=== PATIENT | female | born 1945 | race Caucasian/White ===

== ENCOUNTER → 2018-03-07 13:51 | Outpatient (CLI) | payer MEDICARE, SELFPAY ==
--- NOTE | 2018-03-07 13:58 | VDLE_ITS ---
Reason For Study: RLE pain RIGHT GSV is normal. CFV is compressible, spontaneous, phasic, competent and demonstrates normal augmentation. FV is compressible, spontaneous, phasic, competent and demonstrates normal augmentation. POP V is compressible, spontaneous, phasic, competent and demonstrates normal augmentation. T/P Trunk is compressible. PTV is compressible. RT PerV is compressible. Procedure Exam performed in department. The study was technically difficult. Below knee was technically difficult due to thickened skin from skin grafts. A preliminary report was called and/or faxed to @ 2:30 pm. Interpretation Summary 1. right leg n DVT or SVT. Ordering Physician: Antonio Lilly Referring Physician: Castro Mariscal Performed By: Sofia Spear, JENI, RVT
--- OUTSIDE RECORDS SUMMARY | 2018-05-12 03:40 | XMS RPT_ITS ---
:1945 Author Organization OHIP Support Name Relationship Address Phone R Unavailable Unavailable Unavailable JULIANNE, LEXA Unavailable [address] + [place] [address] JULIANNE, LEXA Unavailable [address] + [place] [address] JULIANNE, LEXA Unavailable [address] + [place] [address] JULIANNE, LEXA Unavailable [address] + [place] [address] JULIANNE, LEXA Unavailable [address] + [place] [address] NOT GIVEN Unavailable Unavailable Unavailable JULIANNE, TRAE Unavailable [address] [facility] [facility] + [place] [address] JULIANNE, JULIAN Unavailable [address] [place] [address] JULIANNE, LEXA Unavailable [address] + [place] [address] JULIANNE, LEXA Unavailable [address] + [place] [address] JULIANNE, LEXA Unavailable [address] + [place] [address] JULIANNE, LEXA Unavailable [address] + [place] [address] JULIANNE, LEXA Unavailable [address] + [place] [address] NOT GIVEN Unavailable Unavailable Unavailable JULIANNE, TRAE Unavailable [address] + [place] [address] JULIANNE, JULIAN Unavailable [address] [place] [address] Care Team Providers Name Role Phone Antonio Lilly Attending Unavailable Antonio Lilly Referring Unavailable Bills, Raleigh Primary Care Unavailable BOUCHRA, BEATRISMAN Referring Unavailable BOUCHRA, KASH Attending Unavailable ORIANA SAINI Referring Unavailable BOUCHRA, KASH Referring Unavailable BOUCHRA, KASH Attending Unavailable BOUCHRA, LAPMAN Referring Unavailable BOUCHRA, LAPMAN Referring Unavailable BOUCHRA, LAPMAN Referring Unavailable BOUCHRA, LAPFRANCIS Attending Unavailable BOUCHRA, LAPMAN Referring Unavailable BOUCHRA, LAPMAN Referring Unavailable SANDRA CASEY Referring Unavailable ORIANA SAINI MD Admitting Unavailable ORIANA SAINI MD Attending Unavailable ORIANA SAINI MD Primary Care Unavailable BILLS, RALEIGH A Consulting Unavailable PROVIDER, UNKNOWN Consulting Unavailable PROVIDER, UNKNOWN Consulting Unavailable PROVIDER, UNKNOWN Consulting Unavailable SARMAD REDDY MD Admitting Unavailable SARMAD REDDY MD Attending Unavailable SARMAD REDDY MD Primary Care Unavailable BILLS, RALEIGH A Consulting Unavailable PROVIDER, UNKNOWN Consulting Unavailable PROVIDER, UNKNOWN Consulting Unavailable PROVIDER, UNKNOWN Consulting Unavailable MAUREEN NARANJO, RYAN Watts Attending Unavailable MAUREEN NARANJO, RYAN Watts Attending Unavailable RYAN REDDY MD Admitting Unavailable KAREN PRAJAPATI MD Consulting Unavailable LALI LUA MD Consulting Unavailable GEETHA OLGUIN MD Consulting Unavailable BAYRON ORELLANA MD Consulting Unavailable RYAN REDDY MD Consulting Unavailable BAYRON ORELLANA MD Attending Unavailable JORGE L WHITE MD Consulting Unavailable ILSA SILVA DO Consulting Unavailable BAYRON ORELLANA MD Attending Unavailable RYAN HUMPHREY MD Consulting Unavailable BAYRON ORELLANA MD Attending Unavailable BAYRON ORELLANA MD Referring Unavailable BAYRON ORELLANA MD Attending Unavailable DAMASO ROSALES Admitting Unavailable HEIDE PRAJAPATI Attending Unavailable SERJIO KARLO H Consulting Unavailable BILLS, RALEIGH A Primary Care Unavailable MALLAT, ALI F Admitting Unavailable DINICOLA, PRANAV Consulting Unavailable MUAKKASSA, FARID F Attending Unavailable CERVINO, A L Consulting Unavailable ANASTASIA, PRANAV Consulting Unavailable LEUKHARDT, KARLO H Consulting Unavailable PROBLEMS PROBLEMS DATE TYPE CONDITION / CODE ATTENDING STATUS SOURCE 01/15/2018 Admitting Encounter for other REYNA NARANJO, Active [facility] Diagnosis general examination BAYRON Dailey / Z00.8(ICD-10) Repository 01/02/2018 Admitting Anemia, unspecified SARMAD REDDY Active [facility] Diagnosis / D649(ICD-10) [facility] Repository 01/02/2018 Principle Anemia, unspecified SARMAD REDDY Active David[facility]itt[facility] Verdu[facility]codavis Diagnosis / D649(ICD-10) [facility] Repository 01/02/2018 Secondary Type 2 diabetes SARMAD REDDY Active [facility] Diagnosis mellitus with [facility] hyperglycemia / Hospital E1165(ICD-10) Repository 11/08/2017 Active Morbid (severe) MUAKKASSA, Active [facility] obesity due to [facility] Other excess calories / [place] E66.01(ICD-10) Repository 11/08/2017 Active Other injury of MUAKKASSA, Active [facility] unspecified body [facility] Other region, initial [place] encounter / Repository T14.8XXA(ICD-10) 11/08/2017 Active Unspecified open MUAKKASSA, Active [facility] wound, unspecified [facility] Other thigh, initial [place] encounter / Repository S71.109A(ICD-10) 11/08/2017 Active Acute MUAKKASSA, Active [facility] posthemorrhagic [facility] Other anemia / D62(ICD-10) [place] Repository 11/08/2017 Active Unspecified tear of MUAKKASSA, Active [facility] unspecified [facility] Other meniscus, current [place] injury, unspecified Repository knee, initial encounter / S83.209A(ICD-10) 11/08/2017 Active Sprain of posterior MUAKKASSA, Active [facility] cruciate ligament of [facility] Other right knee, initial [place] encounter / Repository S83.521A(ICD-10) 11/08/2017 Active Sprain of medial MUAKKASSA, Active [facility] collateral ligament [facility] Other of right knee, [place] initial encounter / Repository S83.411A(ICD-10) 11/08/2017 Active Sprain of anterior MUAKKASSA, Active [facility] cruciate ligament of [facility] Other right knee, initial [place] encounter / Repository S83.511A(ICD-10) 11/08/2017 Active Unspecified fracture MUAKKASSA, Active [facility] of unspecified [facility] Other lumbar vertebra, [place] initial encounter Repository for closed fracture / S32.009A(ICD-10) 11/08/2017 Active Injury, unspecified, MUAKKASSA, Active [facility] initial encounter / [facility] Other T14.90XA(ICD-10) [place] Repository 10/31/2017 Active Hypokalemia / MUAKKASSA, Active [facility] E87.6(ICD-10) [facility] Other [place] Repository 10/15/2017 Active Hypothyroidism, MUAKKASSA, Active [facility] unspecified / [facility] Other E03.9(ICD-10) [place] Repository 10/15/2017 Active Gangrene, not MUAKKASSA, Active [facility] elsewhere classified [facility] Other / I96(ICD-10) [place] Repository 10/15/2017 Active Pain in right knee / MUAKKASSA, Active [facility] M25.561(ICD-10) [facility] [place] Repository 10/15/2017 Active Hyperglycemia, MUAKKASSA, Active [facility] unspecified / [facility] Other R73.9(ICD-10) [place] Repository 11/08/2017 Admitting Unknown / MUAKKASSA, Active [facility] diagnosis UNK(Unknown) On license of [facility] Repository 08/07/2017 Active Abnormal results of NA Active [facility] function [facility] Main studies / [place] R94.5(ICD-10) Repository 05/09/2017 Active 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 / Clinic Main Q44.6(ICD-10) [place] Repository 05/08/2017 Active Malignant (primary) NA Active [facility] neoplasm, Clinic Main unspecified / [place] C80.1(ICD-10) Repository 05/02/2017 Active 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 / Clinic Main E04.0(ICD-10) [place] Repository 05/02/2017 Active Abnormal findings on NA Active [facility] diagnostic imaging [facility] Main of other specified [place] body structures / Repository R93.8(ICD-10) 05/02/2017 Active 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 / Repository C78.7(ICD-10) 04/26/2017 Admitting Chest pain, LATOUF, BUTROS Active [facility] Diagnosis unspecified / MD Minor R079(ICD-10) Hospital Repository 04/26/2017 Principle Chest pain, LATOUF, BUTROS Active [facility] Diagnosis unspecified / MD Minor R079(ICD-10) Hospital Repository PROCEDURES PROCEDURES No Procedure Records FoundRESULTS RESULTS VENOUS DUPLEX LOWER Observed: 03/12/2018 Status: F Source: [facility] 11:54 AM [facility] REPOSITORY [facility] Cardiovascular Services [address] [place] [address] Venous Duplex US, Unilateral 03/07/18 1402 MR#: [id number] Acct: [id number] Name: DEMETRA WHITAKER I Rep #: [id number] : 1945 72 From: Antonio Lilly MD Attending Dr: Antonio Lilly MD Status: REG CLI Ordering Dr: Antonio Lilly MD Date: 03/07/18 Location: CVS Sex: F C Admitted: Reason For Study: RLE pain RIGHT GSV is normal. CFV is compressible, spontaneous, phasic, competent and demonstrates normal augmentation. FV is compressible, spontaneous, phasic, competent and demonstrates normal augmentation. POP V is compressible, spontaneous, phasic, competent and demonstrates normal augmentation. T/P Trunk is compressible. PTV is compressible. RT PerV is compressible. Procedure Exam performed in department. The study was technically difficult. Below knee was technically difficult due to thickened skin from skin grafts. A preliminary report was called and/or faxed to @ 2:30 pm. Interpretation Summary 1. right leg n DVT or SVT. 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 CBC Collected: 02/06/2018 Status: F Source: [facility] 5:45 AM [facility] REPOSITORY TYPE CODE TESTS RESULT OUT OF RANGE REFERENCE UNITS LAB CBC(LOINC) CBC Result Comment: CBC-COMPLETE BLOOD COUNT LAB WBC(LOINC) 4.5 - 10.8 x 10EE3/UL WBC 5.6 LAB RBC(LOINC) 4.10 - x 10EE6/UL 5.30 RBC Low 3.46 LAB HEMOGLOBIN(LOINC 12.0 - g/dl ) 16.0 Low HEMOGLOBIN 10.4 LAB HEMATOCRIT(LOINC 34.0 - % ) 46.0 Low HEMATOCRIT 31.5 LAB MCV(LOINC) 80 - 99 fl MCV 91 LAB MCH(LOINC) 27 - 33 pg MCH 30 LAB MCHC(LOINC) 32 - 36 X10 3 MCHC 33 LAB RDW/CV(LOINC) 12.0 - % 15.6 RDW/CV High 18.6 LAB PLATELET(LOINC) 150 - 450 x10EE3/UL PLATELET 250 LAB MPV(LOINC) 6.6 - 10.5 fl MPV 10.2 Result Comment: AUTOMATED DIFFERENTIAL LAB NEUT %(LOINC) 46.0 - 76.0 % NEUT % 57.6 LAB LYMPH %(LOINC) 20.0 - 45.0 % LYMPH % 25.3 LAB MONOS %(LOINC) 0.0 - 10.0 % MONOS % 8.6 LAB EO %(LOINC) 0.0 - 7.0 % EO % High 7.5 LAB BASO %(LOINC) 0.0 - 2.0 % BASO % 1.0 LAB Lymph #(LOINC) 0.80 - 2.80 x10EE3/U L Lymph # 1.40 LAB Neut #(LOINC) 1.50 - 7.10 x10EE3/U L Neut # 3.20 LAB [place] #(LOINC) 0.20 - 1.00 x10EE3/U L [place] # 0.50 LAB EO #(LOINC) 0.00 - 0.50 x10EE3/U L EO # 0.40 LAB Baso #(LOINC) 0.00 - 0.10 x10EE3/U L Baso # 0.10 LAB MANUAL DIFF(LOINC) MANUAL DIFF N/A LAB MORPHOLOGY(LOINC ) MORPHOLOGY N/A Result Comment: {CD] Performed By: #### [id number] #### [facility],[address] [place] [address] Observed: 01/15/2018 Status: F Source: [facility] 10:00 AM [facility] REPOSITORY . MICRO - Microbiology PROCEDURE: Culture Wound Aerobic with Gram Stain [*1] SOURCE: Wound BODY SITE: Abdomen COLLECTED DATE/TIME: 01/15/2018 10:00 EST RECEIVED DATE/TIME: 01/15/2018 11:39 EST START DATE/TIME: 01/15/2018 11:40 EST FREE TEXT SOURCE: [id number] FINAL REPORTS Final Report [] Verified Date/Time/Personnel: 01/19/2018 08:33 EST Moderate Staphylococcus aureus Few Proteus vulgaris Few Klebsiella oxytoca Moderate normal skin adriel present Sensitivity testing not indicated. PRELIMINARY REPORTS Preliminary Report [] Verified Date/Time/Personnel: 01/18/2018 12:54 EST Moderate Staphylococcus aureus Few Gram Negative Rods Final identification and REID to follow. Few Klebsiella oxytoca Moderate normal skin adriel present Sensitivity testing not indicated. Preliminary Report [] Verified Date/Time/Personnel: 01/18/2018 11:48 EST Moderate Staphylococcus aureus REID to follow Few Gram Negative Rods Final identification and REID to follow. Few Klebsiella oxytoca Moderate normal skin adriel present Sensitivity testing not indicated. Preliminary Report [] Verified Date/Time/Personnel: 01/17/2018 10:50 EST Moderate Staphylococcus aureus REID to follow Few Gram Negative Rods Final identification and REID to follow. Few Gram Negative Rods #2 Final identification and REID to follow. Moderate normal skin adriel present Sensitivity testing not indicated. Preliminary Report [] Verified Date/Time/Personnel: 01/16/2018 10:18 EST Culture results pending. STAINS GS [] Verified Date/Time/Personnel: 01/15/2018 14:54 EST Rare Epithelial cells 1+ Gram Positive Cocci 1+ Gram Positive Rods SUSCEPTIBILITY RESULTS Staphylococcus aureus Antibiotic REID Dilutn REID Interp Ceftriaxone <=8 Susceptible Clindamycin >4 Resistant MICRO - Microbiology SUSCEPTIBILITY RESULTS Staphylococcus aureus Antibiotic REID Dilutn REID Interp Erythromycin >4 Resistant Oxacillin <=0.25 Susceptible Penicillin <=0.03 Susceptible Tetracycline <=4 Susceptible Trimethoprim/ <=0.5/9.5 Susceptible Sulfa Vancomycin 1 Susceptible Proteus vulgaris Antibiotic REID Dilutn REID Interp Amoxicillin/ <=8/4 Susceptible Clavulanate Ampicillin >16 Resistant Cefazolin >16 Resistant Cefotaxime <=2 Susceptible Cefuroxime >16 Resistant Ciprofloxacin <=1 Susceptible Gentamicin <=4 Susceptible Levofloxacin <=2 Susceptible Meropenem <=1 Susceptible Piperacillin/ <=16 Susceptible Tazobactam Trimethoprim/ <=2/38 Susceptible Sulfa Klebsiella oxytoca Antibiotic REID Dilutn REID Interp Amoxicillin/ <=8/4 Susceptible Clavulanate Ampicillin >16 Resistant Cefazolin >16 Resistant Cefotaxime <=2 Susceptible Cefuroxime <=4 Susceptible Ciprofloxacin <=1 Susceptible Gentamicin <=4 Susceptible Levofloxacin <=2 Susceptible Meropenem <=1 Susceptible Piperacillin/ <=16 Susceptible Tazobactam Trimethoprim/ <=2/38 Susceptible Sulfa Performing Locations *1: This test was performed at: [facility] [place], [address] [place] [address], [address] [place] [address] Performed By: #### CWD #### [place] [address] CBC Collected: 01/13/2018 Status: F Source: [facility] 5:29 AM [facility] REPOSITORY TYPE CODE TESTS RESULT OUT OF RANGE REFERENCE UNITS LAB CBC(LOINC) CBC Result Comment: CBC-COMPLETE BLOOD COUNT LAB WBC(LOINC) 4.5 - 10.8 x 10EE3/UL WBC 6.4 LAB RBC(LOINC) 4.10 - x 10EE6/UL 5.30 RBC Low 3.23 LAB HEMOGLOBIN(LOINC 12.0 - g/dl ) 16.0 Low HEMOGLOBIN 9.4 LAB HEMATOCRIT(LOINC 34.0 - % ) 46.0 Low HEMATOCRIT 28.4 LAB MCV(LOINC) 80 - 99 fl MCV 88 LAB MCH(LOINC) 27 - 33 pg MCH 29 LAB MCHC(LOINC) 32 - 36 X10 3 MCHC 33 LAB RDW/CV(LOINC) 12.0 - % 15.6 RDW/CV High 18.3 LAB PLATELET(LOINC) 150 - 450 x10EE3/UL PLATELET 247 LAB MPV(LOINC) 6.6 - 10.5 fl MPV 10.1 Result Comment: AUTOMATED DIFFERENTIAL LAB NEUT %(LOINC) 46.0 - 76.0 % NEUT % 48.0 LAB LYMPH %(LOINC) 20.0 - 45.0 % LYMPH % 25.8 LAB MONOS %(LOINC) 0.0 - 10.0 % MONOS % 9.0 LAB EO %(LOINC) 0.0 - 7.0 % EO % High 16.4 LAB BASO %(LOINC) 0.0 - 2.0 % BASO % 0.8 LAB Lymph #(LOINC) 0.80 - 2.80 x10EE3/U L Lymph # 1.60 LAB Neut #(LOINC) 1.50 - 7.10 x10EE3/U L Neut # 3.10 LAB [place] #(LOINC) 0.20 - 1.00 x10EE3/U L [place] # 0.60 LAB EO #(LOINC) 0.00 - 0.50 x10EE3/U L EO # High 1.00 LAB Baso #(LOINC) 0.00 - 0.10 x10EE3/U L Baso # 0.00 LAB MANUAL DIFF(LOINC) MANUAL DIFF N/A LAB MORPHOLOGY(LOINC ) MORPHOLOGY N/A Result Comment: {CD] Performed By: #### [id number] #### [facility],[address] [place] [address] CBC Collected: 01/06/2018 Status: F Source: [facility] 5:41 AM [facility] REPOSITORY TYPE CODE TESTS RESULT OUT OF RANGE REFERENCE UNITS LAB CBC(LOINC) CBC Result Comment: CBC-COMPLETE BLOOD COUNT LAB WBC(LOINC) 4.5 - 10.8 x 10EE3/UL WBC 7.3 LAB RBC(LOINC) 4.10 - x 10EE6/UL 5.30 RBC Low 3.14 LAB HEMOGLOBIN(LOINC 12.0 - g/dl ) 16.0 Low HEMOGLOBIN 9.3 LAB HEMATOCRIT(LOINC 34.0 - % ) 46.0 Low HEMATOCRIT 27.8 LAB MCV(LOINC) 80 - 99 fl MCV 88 LAB MCH(LOINC) 27 - 33 pg MCH 30 LAB MCHC(LOINC) 32 - 36 X10 3 MCHC 34 LAB RDW/CV(LOINC) 12.0 - % 15.6 RDW/CV High 17.7 LAB PLATELET(LOINC) 150 - 450 x10EE3/UL PLATELET 272 LAB MPV(LOINC) 6.6 - 10.5 fl MPV High 10.6 Result Comment: AUTOMATED DIFFERENTIAL LAB NEUT %(LOINC) 46.0 - 76.0 % NEUT % 55.7 LAB LYMPH %(LOINC) 20.0 - 45.0 % LYMPH % 21.4 LAB MONOS %(LOINC) 0.0 - 10.0 % MONOS % 8.5 LAB EO %(LOINC) 0.0 - 7.0 % EO % High 13.5 LAB BASO %(LOINC) 0.0 - 2.0 % BASO % 0.9 LAB Lymph #(LOINC) 0.80 - 2.80 x10EE3/U L Lymph # 1.60 LAB Neut #(LOINC) 1.50 - 7.10 x10EE3/U L Neut # 4.10 LAB [place] #(LOINC) 0.20 - 1.00 x10EE3/U L [place] # 0.60 LAB EO #(LOINC) 0.00 - 0.50 x10EE3/U L EO # High 1.00 LAB Baso #(LOINC) 0.00 - 0.10 x10EE3/U L Baso # 0.10 LAB MANUAL DIFF(LOINC) MANUAL DIFF N/A LAB MORPHOLOGY(LOINC ) MORPHOLOGY N/A Result Comment: {CD] Performed By: #### [id number] #### [facility],[address] [place] [address] CMP WITH EGFR Collected: 01/06/2018 Status: F Source: [facility] 5:41 AM [facility] REPOSITORY TYPE CODE TESTS RESULT OUT OF RANGE REFERENCE UNITS LAB CMP with eGFR(LOINC) CMP with eGFR Result Comment: COMPREHENSIVE METABOLIC PANEL LAB SODIUM(LOINC) 136 - 145 mmol/l SODIUM 142 LAB POTASSIUM(LOINC) 3.5 - 5.1 mmol/L POTASSIUM 3.8 LAB CHLORIDE(LOINC) 98 - 107 mmol/L CHLORIDE 107 LAB CO2(LOINC) 21.0 - mmol/L 31.0 CO2 28.5 LAB GLUCOSE(LOINC) 74 - 106 mg/dl GLUCOSE High 152 LAB BUN(LOINC) 6 - 20 mg/dl BUN 18 LAB CREATININE(LOINC) 0.6 - 1.2 mg/dl CREATININE 0.7 LAB AST/SGOT(LOINC) 13 - 39 U/L AST/SGOT Low 12 LAB ALK PHOS(LOINC) 38 - 126 U/L ALK PHOS Low 37 LAB CALCIUM(LOINC) 8.6 - mg/dl 10.2 CALCIUM 8.8 LAB TOTAL 6.4 - 8.3 g/dl PROTEIN(LOINC) TOTAL Low PROTEIN 5.7 LAB ALBUMIN(LOINC) 3.4 - 4.8 g/dL ALBUMIN Low 3.0 LAB GLOBULIN(LOINC) 1.5 - 3.8 G/DL GLOBULIN 2.7 LAB A/G RATIO(LOINC) 0.9 - 1.6 A/G RATIO 1.1 LAB TOTAL BILI(LOINC) 0.0 - 1.5 mg/dl TOTAL BILI 0.2 LAB B/C RATIO(LOINC) 0 - 30 ratio B/C RATIO 26 LAB ALT/SGPT(LOINC) 8 - 35 U/L ALT/SGPT 13 LAB ANION GAP(LOINC) 10 - 20 mmol/L ANION GAP 10 LAB AGE(LOINC) years AGE 72 LAB eGFR(LOINC) 60 - 999 ML/MINUTE eGFR >60 LAB eGFR(AA)(LOINC) 60 - 999 ML/MINUTE eGFR(AA) >60 Result Comment: ACCORDING TO THE NATIONAL KIDNEY DISEASE EDUCATION PROGRAM(NKDE), A NORMAL eGFR IS A VALUE GREATER THAN OR EQUAL TO 60 ML/MIN/1.73 SQ METERS. CHRONIC KIDNEY DISEASE: <60mL/MIN/1.73 SQ METERS KIDNEY FAILURE: <15mL/MIN/1.73 SQ METERS THIS TEST SHOULD ONLY BE USED FOR PATIENTS 18 YEARS OF AGE AND OLDER. Performed By: #### [id number] #### [facility],[address] [place], [place] [id number] XR KNEE THREE VIEWS Observed: 01/02/2018 Status: F Source: [employer] [facility] 11:45 AM [facility] REPOSITORY ORIGINAL XR KNEE THREE VIEWS RIGHT CLINICAL STATEMENT: ruptured acl, torn mci and pcl COMPARISON: None FINDINGS: No acute fracture or dislocation is identified. There is a remote-appearing ossicle medial to the medial aspect of the distal femur. No acute osseous abnormality. There are moderate to severe tricompartment degenerative changes. Enthesopathy is seen along the patella. There is nonspecific soft tissue swelling. There is a moderate to large joint effusion. Surgical clips are seen within the more distal soft tissues. IMPRESSION: 1. No acute osseous abnormality. Moderate to large joint effusion. Nonspecific soft tissue edema. 2. Moderate to severe tricompartment degenerative changes. Interpreted By: Sarah Do MD Preliminary Report By: Sarah Do MD Electronically Signed By: Sarah Do MD Dictated Date: 01/02/2018 1:25:19 PM Prelim Date: 01/02/2018 1:29:05 PM Sign Date: 01/02/2018 1:34:33 PM CBC Collected: 12/30/2017 Status: F Source: [facility] 6:20 AM [facility] REPOSITORY TYPE CODE TESTS RESULT OUT OF REFERENCE UNITS RANGE LAB WBC(LOINC) 4.50-10.80 10 3/mcL WBC 6.80 LAB RBCCT(LOINC 4.10-5.30 10 6/mcL ) Low RBC 3.34 LAB HGB(LOINC) 12.0-16.0 G/dL Low Hgb 9.7 LAB HCT(LOINC) 34.0-46.0 % Low Hct 29.6 LAB MCV(LOINC) 80.0-99.0 fL MCV 88.8 LAB MCH(LOINC) 27.0-33.0 pg MCH 29.1 LAB MCHC(LOINC) 32.0-36.0 G/dL MCHC 32.8 LAB RDW(LOINC) 11.5-15.5 % High RDW 17.3 LAB PLT(LOINC) 150-450 10 3/mcL Platelet 280 LAB MPV(LOINC) 6.6-10.5 fL MPV 9.7 Performed By: #### CBC, ADIFF, ANEU, BMP, GFR #### [place] [address] .AUTO DIFF Collected: 12/30/2017 Status: F Source: [facility] 6:20 AM [facility] REPOSITORY TYPE CODE TESTS RESULT OUT OF REFERENCE UNITS RANGE LAB SHWETA(LOINC) 50.0-75.0 % Neutrophil % 55.2 LAB LYM(LOINC) 20.0-40.0 % Low Lymphocyte % 19.3 LAB MON(LOINC) 2.0-13.0 % Monocyte % 7.9 LAB EO(LOINC) 0.0-6.0 % High Eosinophil % 16.9 LAB BAS(LOINC) 0.0-2.5 % Basophil % 0.7 LAB ABLYM(LOIN 0.90-4.32 10 3/mcL C) Lymphocyte, 1.30 Absolute LAB MARCIA(LOINC 0.09-1.40 10 3/mcL ) Monocyte, 0.50 Absolute LAB AEOS(LOINC 0.00-0.65 10 3/mcL ) High Eosinophil, 1.10 Absolute LAB ABAS(LOINC 0.00-0.27 10 3/mcL ) Basophil, 0.00 Absolute Performed By: #### CBC, ADIFF, ANEU, BMP, GFR #### [place] [address] .NEUABS Collected: 12/30/2017 Status: F Source: [facility] 6:20 AM [facility] REPOSITORY TYPE CODE TESTS RESULT OUT OF REFERENCE UNITS RANGE LAB ANEU(LOINC) 2.25-8.10 10 3/mcL Neutrophil, 3.70 Absolute Performed By: #### CBC, ADIFF, ANEU, BMP, GFR #### [place] [address] BMP Collected: 12/30/2017 Status: F Source: [facility] 6:20 AM [facility] REPOSITORY TYPE CODE TESTS RESULT OUT OF REFERENCE UNITS RANGE LAB GLU(LOINC) 82-115 mg/dL Glucose High Level 132 LAB NA(LOINC) 136-145 mEq/L Sodium Level 144 LAB K(LOINC) 3.5-5.0 mEq/L Potassium Level 3.9 LAB CL(LOINC) 98-110 mEq/L Chloride 109 LAB CO2(LOINC) 22-32 mEq/L CO2 28 LAB EBAL(LOINC 4.0-15.0 mEq/L ) Electrolyte Balance 7.0 LAB BUN(LOINC) 8.0-22.0 mg/dL BUN 15.0 LAB CRE(LOINC) 0.50-1.20 mg/dL Creatinine Lvl (s) 0.55 LAB BC(LOINC) 10.0-22.0 ratio High BUN/Creatinine 27.3 Ratio LAB CA(LOINC) 8.4-10.1 mg/dL Low Calcium Lvl 7.9 Performed By: #### DENISA, ADIFF, ANEU, BMP, GFR #### [address] [address] .GFR Collected: 12/30/2017 Status: F Source: [facility] 6:20 AM [facility] REPOSITORY TYPE CODE TESTS RESULT OUT OF REFERENCE UNITS RANGE LAB GFRAA(LOINC ml/min/1.73 ) sqm GFR >60 [place] Result Comment: GFR Population mean for , Non- Americans Ages 20-29 = 116 mL/min/1.73 sq.m. Ages 30-39 = 107 mL/min/1.73 sq.m. Ages 40-49 = 99 mL/min/1.73 sq.m. Ages 50-59 = 93 mL/min/1.73 sq.m. Ages 60-69 = 85 mL/min/1.73 sq.m. Ages 70+ = 75 mL/min/1.73 sq.m. Chronic Kidney Disease: Less than 60 mL/min/1.73 square meters End Stage Renal Disease: Less than 15 mL/min/1.73 square meters LAB GFRNO(LOINC) ml/min/1.73sqm GFR Non- >60 Result Comment: GFR Population mean for , Non- Americans Ages 20-29 = 116 mL/min/1.73 sq.m. Ages 30-39 = 107 mL/min/1.73 sq.m. Ages 40-49 = 99 mL/min/1.73 sq.m. Ages 50-59 = 93 mL/min/1.73 sq.m. Ages 60-69 = 85 mL/min/1.73 sq.m. Ages 70+ = 75 mL/min/1.73 sq.m. Chronic Kidney Disease: Less than 60 mL/min/1.73 square meters End Stage Renal Disease: Less than 15 mL/min/1.73 square meters Performed By: #### CBC, ADIFF, ANEU, BMP, GFR #### [address] [address] CK-RI Collected: 12/24/2017 Status: F Source: [facility] [employer] 3:27 PM [facility] REPOSITORY TYPE CODE TESTS RESULT OUT OF REFERENCE UNITS RANGE LAB CK(LOINC) 7-185 U/L CPK 18 LAB RI(LOINC) 0.0-4.5 % Relative Index Not Valid Result Comment: CPK <185 invalidates relative index Performed By: #### TROPI, CKMB, CKMBM #### [address] [address] TROPI Collected: 12/24/2017 Status: F Source: [facility] 3:26 PM [facility] REPOSITORY TYPE CODE TESTS RESULT OUT OF REFERENCE UNITS RANGE LAB TROPI(LOINC 0.000-0.040 ng/mL ) Troponin I 0.023 Result Comment: Troponin I reference ranges (10/26/13): 0.00-0.040 ng/mL Negative and non-diagnostic. >0.040 ng/mL Consistent with cardiac damage, increased clinical risk and possibility of myocardial infarction. Serial measurements, a rise & fall in test results, clinical history, appropriate symptoms and/or ECG changes may help assess possibility of [place]. *Other non-acute coronary syndrome conditions such as CHF, myocarditis, pulmonary emboli, sepsis and cardiac surgery could result in myocardial damage and increased troponin levels. Performed By: #### TROPI, CKMB, CKMBM #### [address] [address] CKMBM Collected: 12/24/2017 Status: F Source: [facility] 3:26 PM [facility] REPOSITORY TYPE CODE TESTS RESULT OUT OF REFERENCE UNITS RANGE LAB CKMBM(LOINC 0.5-3.6 ng/mL ) Not CKMB Performed Result Comment: CKMB result not performed when CPK < 75 Performed By: #### TROPI, CKMB, CKMBM #### [place] [id number] CBC Collected: 12/24/2017 Status: F Source: [facility] 5:45 AM [facility] REPOSITORY TYPE CODE TESTS RESULT OUT OF REFERENCE UNITS RANGE LAB WBC(LOINC) 4.50-10.80 10 3/mcL WBC 6.70 LAB RBCCT(LOINC 4.10-5.30 10 6/mcL ) Low RBC 3.17 LAB HGB(LOINC) 12.0-16.0 G/dL Low Hgb 9.3 LAB HCT(LOINC) 34.0-46.0 % Low Hct 28.2 LAB MCV(LOINC) 80.0-99.0 fL MCV 89.1 LAB MCH(LOINC) 27.0-33.0 pg MCH 29.2 LAB MCHC(LOINC) 32.0-36.0 G/dL MCHC 32.8 LAB RDW(LOINC) 11.5-15.5 % High RDW 16.7 LAB PLT(LOINC) 150-450 10 3/mcL Platelet 280 LAB MPV(LOINC) 6.6-10.5 fL MPV 9.7 Performed By: #### CBC, ADIFF, ANEU, BMP, GFR #### [address] [address] .AUTO DIFF Collected: 12/24/2017 Status: F Source: [facility] 5:45 AM [facility] REPOSITORY TYPE CODE TESTS RESULT OUT OF REFERENCE UNITS RANGE LAB SHWETA(LOINC) 50.0-75.0 % Neutrophil % 55.6 LAB LYM(LOINC) 20.0-40.0 % Low Lymphocyte % 17.7 LAB MON(LOINC) 2.0-13.0 % Monocyte % 7.6 LAB EO(LOINC) 0.0-6.0 % High Eosinophil % 18.6 LAB BAS(LOINC) 0.0-2.5 % Basophil % 0.5 LAB ABLYM(LOIN 0.90-4.32 10 3/mcL C) Lymphocyte, 1.20 Absolute LAB MARCIA(LOINC 0.09-1.40 10 3/mcL ) Monocyte, 0.50 Absolute LAB AEOS(LOINC 0.00-0.65 10 3/mcL ) High Eosinophil, 1.20 Absolute LAB ABAS(LOINC 0.00-0.27 10 3/mcL ) Basophil, 0.00 Absolute Performed By: #### CBC, ADIFF, ANEU, BMP, GFR #### [address] [address] .NEUABS Collected: 12/24/2017 Status: F Source: [facility] 5:45 AM [facility] REPOSITORY TYPE CODE TESTS RESULT OUT OF REFERENCE UNITS RANGE LAB ANEU(LOINC) 2.25-8.10 10 3/mcL Neutrophil, 3.70 Absolute Performed By: #### CBC, ADIFF, ANEU, BMP, GFR #### [place] [address] BMP Collected: 12/24/2017 Status: F Source: [facility] 5:45 AM [facility] REPOSITORY TYPE CODE TESTS RESULT OUT OF REFERENCE UNITS RANGE LAB GLU(LOINC) 82-115 mg/dL Glucose High Level 116 LAB NA(LOINC) 136-145 mEq/L Sodium High Level 146 LAB K(LOINC) 3.5-5.0 mEq/L Potassium Level 4.1 LAB CL(LOINC) 98-110 mEq/L Chloride 108 LAB CO2(LOINC) 22-32 mEq/L CO2 29 LAB EBAL(LOINC 4.0-15.0 mEq/L ) Electrolyte Balance 9.0 LAB BUN(LOINC) 8.0-22.0 mg/dL BUN 12.0 LAB CRE(LOINC) 0.50-1.20 mg/dL Creatinine Lvl (s) 0.68 LAB BC(LOINC) 10.0-22.0 ratio BUN/Creatinine 17.6 Ratio LAB CA(LOINC) 8.4-10.1 mg/dL Low Calcium Lvl 8.0 Performed By: #### CBC, ADIFF, ANEU, BMP, GFR #### [place] [address] .GFR Collected: 12/24/2017 Status: F Source: [facility] 5:45 AM [facility] REPOSITORY TYPE CODE TESTS RESULT OUT OF REFERENCE UNITS RANGE LAB GFRAA(LOINC ml/min/1.73 ) sqm GFR >60 [place] Result Comment: GFR Population mean for , Non- Americans Ages 20-29 = 116 mL/min/1.73 sq.m. Ages 30-39 = 107 mL/min/1.73 sq.m. Ages 40-49 = 99 mL/min/1.73 sq.m. Ages 50-59 = 93 mL/min/1.73 sq.m. Ages 60-69 = 85 mL/min/1.73 sq.m. Ages 70+ = 75 mL/min/1.73 sq.m. Chronic Kidney Disease: Less than 60 mL/min/1.73 square meters End Stage Renal Disease: Less than 15 mL/min/1.73 square meters LAB GFRNO(LOINC) ml/min/1.73sqm GFR Non- >60 Result Comment: GFR Population mean for , Non- Americans Ages 20-29 = 116 mL/min/1.73 sq.m. Ages 30-39 = 107 mL/min/1.73 sq.m. Ages 40-49 = 99 mL/min/1.73 sq.m. Ages 50-59 = 93 mL/min/1.73 sq.m. Ages 60-69 = 85 mL/min/1.73 sq.m. Ages 70+ = 75 mL/min/1.73 sq.m. Chronic Kidney Disease: Less than 60 mL/min/1.73 square meters End Stage Renal Disease: Less than 15 mL/min/1.73 square meters Performed By: #### CBC, ADIFF, ANEU, BMP, GFR #### [address] [address] FIB Collected: 12/22/2017 Status: F Source: [facility] 4:00 AM [facility] REPOSITORY TYPE CODE TESTS RESULT OUT OF REFERENCE UNITS RANGE LAB FIB(LOINC) 250-550 mg/dL High Fibrinogen 630 Performed By: #### FIB, APTT, PRO, MG, BMP, PHOS, GFR, CBC, DIFF, MORPH #### [address] [address] APTT Collected: 12/22/2017 Status: F Source: [facility] 4:00 AM [facility] REPOSITORY TYPE CODE TESTS RESULT OUT OF REFERENCE UNITS RANGE LAB PDOSE(LOIN C) Heparin dose None (APTT) LAB APTT0(LOIN 25.0-35.0 seconds C) APTT 30.6 Result Comment: For Heparin anticoagulation therapy, the recommended therapeutic range is: 54-77 seconds (APTT Correlation with Anti-Xa therapeutic range of 0.3-0.7 units/ml). PLEASE REFERENCE THE PHARMACY PROTOCOL FOR DOSING. Performed By: #### FIB, APTT, PRO, MG, BMP, PHOS, GFR, CBC, DIFF, MORPH #### [address] [address] PRO Collected: 12/22/2017 Status: F Source: [facility] 4:00 AM [facility] REPOSITORY TYPE CODE TESTS RESULT OUT OF REFERENCE UNITS RANGE LAB PT(LOINC) 9.0-14.6 seconds Protime 12.4 Result Comment: Effective 09/02/07, Protime results may be affected by some antibiotics (i.e. Ciprofloxacin, Azithromycin, Bactrim) which may potentiate the action of oral anticoagulants, with further increases in Protime/INR. LAB INR(LOINC) ratio PT International Ratio 1.1 Result Comment: The [employer] (CHEST, 1991, [id number]) recommended therapeutic range for oral anticoagulant therapy is: LOW RISK: Prophylaxis of venous thrombosis INR: 2.0-3.0 Treatment of pulmonary embolism 2.0-3.0 Prevention of systemic embolism 2.0-3.0 HIGH RISK: Mechanical prosthetic valves 2.5-3.5 Performed By: #### FIB, APTT, PRO, MG, BMP, PHOS, GFR, CBC, DIFF, MORPH #### [place] [address] MG Collected: 12/22/2017 Status: F Source: [facility] 4:00 AM [facility] REPOSITORY TYPE CODE TESTS RESULT OUT OF REFERENCE UNITS RANGE LAB MG(LOINC) 1.6-2.4 mg/dL Magnesium Lvl 1.9 Performed By: #### FIB, APTT, PRO, MG, BMP, PHOS, GFR, CBC, DIFF, MORPH #### [place] [address] BMP Collected: 12/22/2017 Status: F Source: [facility] 4:00 AM [facility] REPOSITORY TYPE CODE TESTS RESULT OUT OF REFERENCE UNITS RANGE LAB GLU(LOINC) 82-115 mg/dL Glucose High Level 116 LAB NA(LOINC) 136-145 mEq/L Sodium Level 145 LAB K(LOINC) 3.5-5.0 mEq/L Potassium Level 4.0 LAB CL(LOINC) 98-110 mEq/L Chloride 108 LAB CO2(LOINC) 22-32 mEq/L CO2 30 LAB EBAL(LOINC 4.0-15.0 mEq/L ) Electrolyte Balance 7.0 LAB BUN(LOINC) 8.0-22.0 mg/dL BUN 16.0 LAB CRE(LOINC) 0.50-1.20 mg/dL Creatinine Lvl (s) 0.54 LAB BC(LOINC) 10.0-22.0 ratio High BUN/Creatinine 29.6 Ratio LAB CA(LOINC) 8.4-10.1 mg/dL Low Calcium Lvl 8.2 Performed By: #### FIB, APTT, PRO, MG, BMP, PHOS, GFR, CBC, DIFF, MORPH #### [address] [address] PHOS Collected: 12/22/2017 Status: F Source: [facility] 4:00 AM [facility] REPOSITORY TYPE CODE TESTS RESULT OUT OF REFERENCE UNITS RANGE LAB PHOS(LOINC 2.5-4.5 mg/dL ) Phosphorus 4.2 Performed By: #### FIB, APTT, PRO, MG, BMP, PHOS, GFR, CBC, DIFF, MORPH #### [address] [address] .GFR Collected: 12/22/2017 Status: F Source: [facility] 4:00 AM [facility] REPOSITORY TYPE CODE TESTS RESULT OUT OF REFERENCE UNITS RANGE LAB GFRAA(LOINC ml/min/1.73 ) sqm GFR >60 [place] Result Comment: GFR Population mean for , Non- Americans Ages 20-29 = 116 mL/min/1.73 sq.m. Ages 30-39 = 107 mL/min/1.73 sq.m. Ages 40-49 = 99 mL/min/1.73 sq.m. Ages 50-59 = 93 mL/min/1.73 sq.m. Ages 60-69 = 85 mL/min/1.73 sq.m. Ages 70+ = 75 mL/min/1.73 sq.m. Chronic Kidney Disease: Less than 60 mL/min/1.73 square meters End Stage Renal Disease: Less than 15 mL/min/1.73 square meters LAB GFRNO(LOINC) ml/min/1.73sqm GFR Non- >60 Result Comment: GFR Population mean for , Non- Americans Ages 20-29 = 116 mL/min/1.73 sq.m. Ages 30-39 = 107 mL/min/1.73 sq.m. Ages 40-49 = 99 mL/min/1.73 sq.m. Ages 50-59 = 93 mL/min/1.73 sq.m. Ages 60-69 = 85 mL/min/1.73 sq.m. Ages 70+ = 75 mL/min/1.73 sq.m. Chronic Kidney Disease: Less than 60 mL/min/1.73 square meters End Stage Renal Disease: Less than 15 mL/min/1.73 square meters Performed By: #### FIB, APTT, PRO, MG, BMP, PHOS, GFR, CBC, DIFF, MORPH #### [address] [address] CBC Collected: 12/22/2017 Status: F Source: [facility] 4:00 AM [facility] REPOSITORY TYPE CODE TESTS RESULT OUT OF REFERENCE UNITS RANGE LAB WBC(LOINC) 4.50-10.80 10 3/mcL WBC 6.40 LAB RBCCT(LOINC 4.10-5.30 10 6/mcL ) Low RBC 3.20 LAB HGB(LOINC) 12.0-16.0 G/dL Low Hgb 9.4 LAB HCT(LOINC) 34.0-46.0 % Low Hct 28.4 LAB MCV(LOINC) 80.0-99.0 fL MCV 88.7 LAB MCH(LOINC) 27.0-33.0 pg MCH 29.3 LAB MCHC(LOINC) 32.0-36.0 G/dL MCHC 33.0 LAB RDW(LOINC) 11.5-15.5 % High RDW 16.5 LAB PLT(LOINC) 150-450 10 3/mcL Platelet 241 LAB MPV(LOINC) 6.6-10.5 fL MPV 9.5 Performed By: #### FIB, APTT, PRO, MG, BMP, PHOS, GFR, CBC, DIFF, MORPH #### [address] [address] .MANUAL DIFF Collected: 12/22/2017 Status: F Source: [facility] 4:00 AM [facility] REPOSITORY TYPE CODE TESTS RESULT OUT OF REFERENCE UNITS RANGE LAB LIMIT(LOIN C) Cells Counted 100 LAB NEUM(LOINC 50.0-75.0 % ) Neutrophil %, 54.0 Manual LAB LYMM(LOINC 20.0-40.0 % ) Lymphocyte %, 27.0 Manual LAB MONM(LOINC 2.0-13.0 % ) Monocyte %, Manual 4.0 LAB EOM(LOINC) 0.0-6.0 % High Eosinophil %, 15.0 Manual LAB BASM(LOINC 0.0-2.5 % ) Basophil %, Manual 0.0 LAB ANEUM(LOIN 2.25-8.10 10 3/mcL C) Neutrophil, Abs 3.46 Manual LAB ABLYMM(ASADIA 0.90-4.32 10 3/mcL NC) Lymphocyte, Abs 1.73 Manual LAB AMONM(LOIN 0.09-1.40 10 3/mcL C) Monocyte, Abs 0.26 Manual LAB AEOSM(LOIN 0.00-0.65 10 3/mcL C) High Eosinophil, Abs 0.96 Manual LAB ABASM(LOIN 0.00-0.27 10 3/mcL C) Basophil, Abs 0.00 Manual Performed By: #### FIB, APTT, PRO, MG, BMP, PHOS, GFR, CBC, DIFF, MORPH #### [place] [address] .MORPH Collected: 12/22/2017 Status: F Source: [facility] 4:00 AM [facility] REPOSITORY TYPE CODE TESTS RESULT OUT OF REFERENCE UNITS RANGE LAB PLTE(LOINC ) Platelet Estimate Normal LAB ANIS(LOINC ) Anisocytosis Slight Performed By: #### FIB, APTT, PRO, MG, BMP, PHOS, GFR, CBC, DIFF, MORPH #### [place] [address] CBC Collected: 12/19/2017 Status: F Source: [facility] 6:24 AM [facility] REPOSITORY TYPE CODE TESTS RESULT OUT OF REFERENCE UNITS RANGE LAB WBC(LOINC) 4.50-10.80 10 3/mcL WBC 5.20 LAB RBCCT(LOINC 4.10-5.30 10 6/mcL ) Low RBC 3.16 LAB HGB(LOINC) 12.0-16.0 G/dL Low Hgb 9.2 LAB HCT(LOINC) 34.0-46.0 % Low Hct 28.4 LAB MCV(LOINC) 80.0-99.0 fL MCV 89.8 LAB MCH(LOINC) 27.0-33.0 pg MCH 29.0 LAB MCHC(LOINC) 32.0-36.0 G/dL MCHC 32.3 LAB RDW(LOINC) 11.5-15.5 % High RDW 16.3 LAB PLT(LOINC) 150-450 10 3/mcL Platelet 191 LAB MPV(LOINC) 6.6-10.5 fL MPV 10.4 Performed By: #### CBC, BMP, GFR, DIFF, MORPH #### [address] [address] BMP Collected: 12/19/2017 Status: F Source: [facility] 6:24 AM [facility] REPOSITORY TYPE CODE TESTS RESULT OUT OF REFERENCE UNITS RANGE LAB GLU(LOINC) 82-115 mg/dL Glucose Level 115 LAB NA(LOINC) 136-145 mEq/L Sodium Level 145 LAB K(LOINC) 3.5-5.0 mEq/L Potassium Level 4.0 LAB CL(LOINC) 98-110 mEq/L Chloride 110 LAB CO2(LOINC) 22-32 mEq/L CO2 29 LAB EBAL(LOINC 4.0-15.0 mEq/L ) Electrolyte Balance 6.0 LAB BUN(LOINC) 8.0-22.0 mg/dL BUN 18.0 LAB CRE(LOINC) 0.50-1.20 mg/dL Creatinine Lvl (s) 0.51 LAB BC(LOINC) 10.0-22.0 ratio High BUN/Creatinine 35.3 Ratio LAB CA(LOINC) 8.4-10.1 mg/dL Low Calcium Lvl 7.9 Performed By: #### CBC, BMP, GFR, DIFF, MORPH #### [address] [address] .GFR Collected: 12/19/2017 Status: F Source: [facility] 6:24 AM [facility] REPOSITORY TYPE CODE TESTS RESULT OUT OF REFERENCE UNITS RANGE LAB GFRAA(LOINC ml/min/1.73 ) sqm GFR >60 [place] Result Comment: GFR Population mean for , Non- Americans Ages 20-29 = 116 mL/min/1.73 sq.m. Ages 30-39 = 107 mL/min/1.73 sq.m. Ages 40-49 = 99 mL/min/1.73 sq.m. Ages 50-59 = 93 mL/min/1.73 sq.m. Ages 60-69 = 85 mL/min/1.73 sq.m. Ages 70+ = 75 mL/min/1.73 sq.m. Chronic Kidney Disease: Less than 60 mL/min/1.73 square meters End Stage Renal Disease: Less than 15 mL/min/1.73 square meters LAB GFRNO(LOINC) ml/min/1.73sqm GFR Non- >60 Result Comment: GFR Population mean for , Non- Americans Ages 20-29 = 116 mL/min/1.73 sq.m. Ages 30-39 = 107 mL/min/1.73 sq.m. Ages 40-49 = 99 mL/min/1.73 sq.m. Ages 50-59 = 93 mL/min/1.73 sq.m. Ages 60-69 = 85 mL/min/1.73 sq.m. Ages 70+ = 75 mL/min/1.73 sq.m. Chronic Kidney Disease: Less than 60 mL/min/1.73 square meters End Stage Renal Disease: Less than 15 mL/min/1.73 square meters Performed By: #### CBC, BMP, GFR, DIFF, MORPH #### [place] [address] .MANUAL DIFF Collected: 12/19/2017 Status: F Source: [facility] 6:24 AM [facility] REPOSITORY TYPE CODE TESTS RESULT OUT OF REFERENCE UNITS RANGE LAB LIMIT(LOIN C) Cells Counted 100 LAB NEUM(LOINC 50.0-75.0 % ) Neutrophil %, Low Manual 48.0 LAB LYMM(LOINC 20.0-40.0 % ) Lymphocyte %, Manual 26.0 LAB MONM(LOINC 2.0-13.0 % ) Monocyte %, Manual 4.0 LAB EOM(LOINC) 0.0-6.0 % Eosinophil %, High Manual 20.0 LAB BASM(LOINC 0.0-2.5 % ) Basophil %, Manual 1.0 LAB META(LOINC % ) Metamyelocyte 1.0 LAB ANEUM(LOIN 2.25-8.10 10 3/mcL C) Neutrophil, Abs Manual 2.50 LAB ABLYMM(SAADIA 0.90-4.32 10 3/mcL NC) Lymphocyte, Abs Manual 1.35 LAB AMONM(LOIN 0.09-1.40 10 3/mcL C) Monocyte, Abs Manual 0.21 LAB AEOSM(LOIN 0.00-0.65 10 3/mcL C) Eosinophil, Abs High Manual 1.04 LAB ABASM(LOIN 0.00-0.27 10 3/mcL C) Basophil, Abs Manual 0.05 Performed By: #### CBC, BMP, GFR, DIFF, MORPH #### [address] [address] .MORPH Collected: 12/19/2017 Status: F Source: [facility] 6:24 AM [facility] REPOSITORY TYPE CODE TESTS RESULT OUT OF REFERENCE UNITS RANGE LAB PLTE(LOINC ) Platelet Estimate Normal LAB ANIS(LOINC ) Anisocytosis Slight LAB POIK(LOINC ) Poik Slight LAB TEAR(LOINC ) Tear Cell Rare Performed By: #### CBC, BMP, GFR, DIFF, MORPH #### [address] [address] CBC Collected: 12/13/2017 Status: F Source: [facility] 6:53 AM [facility] REPOSITORY TYPE CODE TESTS RESULT OUT OF REFERENCE UNITS RANGE LAB WBC(LOINC) 4.50-10.80 10 3/mcL WBC 5.90 LAB RBCCT(LOINC 4.10-5.30 10 6/mcL ) Low RBC 3.18 LAB HGB(LOINC) 12.0-16.0 G/dL Low Hgb 9.1 LAB HCT(LOINC) 34.0-46.0 % Low Hct 28.2 LAB MCV(LOINC) 80.0-99.0 fL MCV 88.6 LAB MCH(LOINC) 27.0-33.0 pg MCH 28.5 LAB MCHC(LOINC) 32.0-36.0 G/dL MCHC 32.2 LAB RDW(LOINC) 11.5-15.5 % RDW 15.4 LAB PLT(LOINC) 150-450 10 3/mcL Platelet 217 LAB MPV(LOINC) 6.6-10.5 fL MPV 10.0 Performed By: #### CBC, ADIFF, ANEU, BMP, GFR #### [address] [address] .AUTO DIFF Collected: 12/13/2017 Status: F Source: [facility] 6:53 AM [facility] REPOSITORY TYPE CODE TESTS RESULT OUT OF REFERENCE UNITS RANGE LAB SHWETA(LOINC) 50.0-75.0 % Neutrophil % 58.0 LAB LYM(LOINC) 20.0-40.0 % Low Lymphocyte % 19.2 LAB MON(LOINC) 2.0-13.0 % Monocyte % 7.2 LAB EO(LOINC) 0.0-6.0 % High Eosinophil % 14.8 LAB BAS(LOINC) 0.0-2.5 % Basophil % 0.8 LAB ABLYM(LOIN 0.90-4.32 10 3/mcL C) Lymphocyte, 1.10 Absolute LAB MARCIA(LOINC 0.09-1.40 10 3/mcL ) Monocyte, 0.40 Absolute LAB AEOS(LOINC 0.00-0.65 10 3/mcL ) High Eosinophil, 0.90 Absolute LAB ABAS(LOINC 0.00-0.27 10 3/mcL ) Basophil, 0.00 Absolute Performed By: #### CBC, ADIFF, ANEU, BMP, GFR #### [place] [address] .NEUABS Collected: 12/13/2017 Status: F Source: [facility] 6:53 AM [facility] REPOSITORY TYPE CODE TESTS RESULT OUT OF REFERENCE UNITS RANGE LAB ANEU(LOINC) 2.25-8.10 10 3/mcL Neutrophil, 3.40 Absolute Performed By: #### CBC, ADIFF, ANEU, BMP, GFR #### [place] [address] BMP Collected: 12/13/2017 Status: F Source: [facility] 6:53 AM [facility] REPOSITORY TYPE CODE TESTS RESULT OUT OF REFERENCE UNITS RANGE LAB GLU(LOINC) 82-115 mg/dL Glucose High Level 122 LAB NA(LOINC) 136-145 mEq/L Sodium Level 145 LAB K(LOINC) 3.5-5.0 mEq/L Potassium Level 4.2 LAB CL(LOINC) 98-110 mEq/L Chloride 110 LAB CO2(LOINC) 22-32 mEq/L CO2 28 LAB EBAL(LOINC 4.0-15.0 mEq/L ) Electrolyte Balance 7.0 LAB BUN(LOINC) 8.0-22.0 mg/dL BUN 16.0 LAB CRE(LOINC) 0.50-1.20 mg/dL Creatinine Lvl (s) 0.55 LAB BC(LOINC) 10.0-22.0 ratio High BUN/Creatinine 29.1 Ratio LAB CA(LOINC) 8.4-10.1 mg/dL Low Calcium Lvl 7.9 Performed By: #### DENISA, ADIFF, ANEU, BMP, GFR #### [address] [address] .GFR Collected: 12/13/2017 Status: F Source: [facility] 6:53 AM [facility] REPOSITORY TYPE CODE TESTS RESULT OUT OF REFERENCE UNITS RANGE LAB GFRAA(LOINC ml/min/1.73 ) sqm GFR >60 [place] Result Comment: GFR Population mean for , Non- Americans Ages 20-29 = 116 mL/min/1.73 sq.m. Ages 30-39 = 107 mL/min/1.73 sq.m. Ages 40-49 = 99 mL/min/1.73 sq.m. Ages 50-59 = 93 mL/min/1.73 sq.m. Ages 60-69 = 85 mL/min/1.73 sq.m. Ages 70+ = 75 mL/min/1.73 sq.m. Chronic Kidney Disease: Less than 60 mL/min/1.73 square meters End Stage Renal Disease: Less than 15 mL/min/1.73 square meters LAB GFRNO(LOINC) ml/min/1.73sqm GFR Non- >60 Result Comment: GFR Population mean for , Non- Americans Ages 20-29 = 116 mL/min/1.73 sq.m. Ages 30-39 = 107 mL/min/1.73 sq.m. Ages 40-49 = 99 mL/min/1.73 sq.m. Ages 50-59 = 93 mL/min/1.73 sq.m. Ages 60-69 = 85 mL/min/1.73 sq.m. Ages 70+ = 75 mL/min/1.73 sq.m. Chronic Kidney Disease: Less than 60 mL/min/1.73 square meters End Stage Renal Disease: Less than 15 mL/min/1.73 square meters Performed By: #### CBC, ADIFF, ANEU, BMP, GFR #### [address] [address] BMP Collected: 2017 Status: F Source: [facility] 6:30 AM [facility] REPOSITORY TYPE CODE TESTS RESULT OUT OF REFERENCE UNITS RANGE LAB GLU(LOINC) 82-115 mg/dL Glucose Level 104 LAB NA(LOINC) 136-145 mEq/L Sodium High Level 148 LAB K(LOINC) 3.5-5.0 mEq/L Potassium Level 4.0 LAB CL(LOINC) 98-110 mEq/L Chloride High 111 LAB CO2(LOINC) 22-32 mEq/L CO2 28 LAB EBAL(LOINC 4.0-15.0 mEq/L ) Electrolyte Balance 9.0 LAB BUN(LOINC) 8.0-22.0 mg/dL BUN 18.0 LAB CRE(LOINC) 0.50-1.20 mg/dL Creatinine Lvl (s) 0.68 LAB BC(LOINC) 10.0-22.0 ratio High BUN/Creatinine 26.5 Ratio LAB CA(LOINC) 8.4-10.1 mg/dL Low Calcium Lvl 7.5 Performed By: #### CBC, ADIFF, ANEU, BMP, GFR #### [place] [address] .GFR Collected: 2017 Status: F Source: [facility] 6:30 AM [facility] REPOSITORY TYPE CODE TESTS RESULT OUT OF REFERENCE UNITS RANGE LAB GFRAA(LOINC ml/min/1.73 ) sqm GFR >60 [place] Result Comment: GFR Population mean for , Non- Americans Ages 20-29 = 116 mL/min/1.73 sq.m. Ages 30-39 = 107 mL/min/1.73 sq.m. Ages 40-49 = 99 mL/min/1.73 sq.m. Ages 50-59 = 93 mL/min/1.73 sq.m. Ages 60-69 = 85 mL/min/1.73 sq.m. Ages 70+ = 75 mL/min/1.73 sq.m. Chronic Kidney Disease: Less than 60 mL/min/1.73 square meters End Stage Renal Disease: Less than 15 mL/min/1.73 square meters LAB GFRNO(LOINC) ml/min/1.73sqm GFR Non- >60 Result Comment: GFR Population mean for , Non- Americans Ages 20-29 = 116 mL/min/1.73 sq.m. Ages 30-39 = 107 mL/min/1.73 sq.m. Ages 40-49 = 99 mL/min/1.73 sq.m. Ages 50-59 = 93 mL/min/1.73 sq.m. Ages 60-69 = 85 mL/min/1.73 sq.m. Ages 70+ = 75 mL/min/1.73 sq.m. Chronic Kidney Disease: Less than 60 mL/min/1.73 square meters End Stage Renal Disease: Less than 15 mL/min/1.73 square meters Performed By: #### CBC, ADIFF, ANEU, BMP, GFR #### [address] [address] CBC Collected: 2017 Status: F Source: [facility] 4:00 AM [facility] REPOSITORY TYPE CODE TESTS RESULT OUT OF REFERENCE UNITS RANGE LAB WBC(LOINC) 4.50-10.80 10 3/mcL WBC 6.30 LAB RBCCT(LOINC 4.10-5.30 10 6/mcL ) Low RBC 3.11 LAB HGB(LOINC) 12.0-16.0 G/dL Low Hgb 8.9 LAB HCT(LOINC) 34.0-46.0 % Low Hct 27.6 LAB MCV(LOINC) 80.0-99.0 fL MCV 88.7 LAB MCH(LOINC) 27.0-33.0 pg MCH 28.7 LAB MCHC(LOINC) 32.0-36.0 G/dL MCHC 32.3 LAB RDW(LOINC) 11.5-15.5 % RDW 15.0 LAB PLT(LOINC) 150-450 10 3/mcL Platelet 240 LAB MPV(LOINC) 6.6-10.5 fL MPV 9.7 Performed By: #### CBC, ADIFF, ANEU, BMP, GFR #### [address] [address] .AUTO DIFF Collected: 2017 Status: F Source: [facility] 4:00 AM [facility] REPOSITORY TYPE CODE TESTS RESULT OUT OF REFERENCE UNITS RANGE LAB SHWETA(LOINC) 50.0-75.0 % Neutrophil % 61.0 LAB LYM(LOINC) 20.0-40.0 % Low Lymphocyte % 17.5 LAB MON(LOINC) 2.0-13.0 % Monocyte % 7.9 LAB EO(LOINC) 0.0-6.0 % High Eosinophil % 12.7 LAB BAS(LOINC) 0.0-2.5 % Basophil % 0.9 LAB ABLYM(LOIN 0.90-4.32 10 3/mcL C) Lymphocyte, 1.10 Absolute LAB MARCIA(LOINC 0.09-1.40 10 3/mcL ) Monocyte, 0.50 Absolute LAB AEOS(LOINC 0.00-0.65 10 3/mcL ) High Eosinophil, 0.80 Absolute LAB ABAS(LOINC 0.00-0.27 10 3/mcL ) Basophil, 0.10 Absolute Performed By: #### CBC, ADIFF, ANEU, BMP, GFR #### [address] [address] .NEUABS Collected: 2017 Status: F Source: [facility] 4:00 AM [facility] REPOSITORY TYPE CODE TESTS RESULT OUT OF REFERENCE UNITS RANGE LAB ANEU(LOINC) 2.25-8.10 10 3/mcL Neutrophil, 3.90 Absolute Performed By: #### CBC, ADIFF, ANEU, BMP, GFR #### [address] [address] Observed: 12/04/2017 Status: F Source: [facility] CDPCR 8:15 AM [facility] REPOSITORY . MICRO - Microbiology PROCEDURE: Clostridium difficile PCR [^1 *1] SOURCE: Stool BODY SITE: COLLECTED DATE/TIME: 12/04/2017 08:15 EDT RECEIVED DATE/TIME: 12/04/2017 09:21 EDT START DATE/TIME: 12/04/2017 09:21 EDT FREE TEXT SOURCE: FINAL REPORTS Final Report [] Verified Date/Time/Personnel: 12/05/2017 00:10 EDT Clostridium toxin B gene tcdB gene DNA DETECTED. A Positive C. difficile assay detection result does not necessarily indicate the presence of viable organisms. It does however indicate the presence of the tcdB gene and allows for presumptive detection of a Clostridium difficile toxigenic organism. This assay cannot be used for species identification as it does not contain primers and probes specific to Clostridium difficile. As with all PCR-based in vitro diagnostic tests, extremely low levels of target below the limit of of the assay may be detected, but results may not be reproducible. Infection control has been notified. Interpretive Data ^1: Clostridium difficile PCR As with all in vitro diagnostic tests, positive and negative predictive values are highly dependent on prevalence. The [employer] C. difficile PCR Assay performance may vary depending on the prevalence and population tested. Performing Locations *1: This test was performed at: [facility] [place], [address] [place] [address], [id number] , [facility] Performed By: #### CDPCR #### [place] [address] CBC Collected: 12/01/2017 Status: F Source: [facility] 5:34 AM [facility] REPOSITORY TYPE CODE TESTS RESULT OUT OF REFERENCE UNITS RANGE LAB WBC(LOINC) 4.50-10.80 10 3/mcL WBC 6.40 LAB RBCCT(LOINC 4.10-5.30 10 6/mcL ) Low RBC 2.92 LAB HGB(LOINC) 12.0-16.0 G/dL Low Hgb 8.5 LAB HCT(LOINC) 34.0-46.0 % Low Hct 26.1 LAB MCV(LOINC) 80.0-99.0 fL MCV 89.6 LAB MCH(LOINC) 27.0-33.0 pg MCH 29.0 LAB MCHC(LOINC) 32.0-36.0 G/dL MCHC 32.3 LAB RDW(LOINC) 11.5-15.5 % RDW 15.1 LAB PLT(LOINC) 150-450 10 3/mcL Platelet 257 LAB MPV(LOINC) 6.6-10.5 fL MPV 8.7 Performed By: #### CBC, ADIFF, ANEU, BMP, GFR #### [place] [address] .AUTO DIFF Collected: 12/01/2017 Status: F Source: [facility] 5:34 AM [facility] REPOSITORY TYPE CODE TESTS RESULT OUT OF REFERENCE UNITS RANGE LAB SHWETA(LOINC) 50.0-75.0 % Neutrophil % 66.8 LAB LYM(LOINC) 20.0-40.0 % Low Lymphocyte % 17.1 LAB MON(LOINC) 2.0-13.0 % Monocyte % 6.7 LAB EO(LOINC) 0.0-6.0 % High Eosinophil % 8.4 LAB BAS(LOINC) 0.0-2.5 % Basophil % 1.0 LAB ABLYM(LOIN 0.90-4.32 10 3/mcL C) Lymphocyte, 1.10 Absolute LAB MARCIA(LOINC 0.09-1.40 10 3/mcL ) Monocyte, 0.40 Absolute LAB AEOS(LOINC 0.00-0.65 10 3/mcL ) Eosinophil, 0.50 Absolute LAB ABAS(LOINC 0.00-0.27 10 3/mcL ) Basophil, 0.10 Absolute Performed By: #### CBC, ADIFF, ANEU, BMP, GFR #### [place] [address] .NEUABS Collected: 12/01/2017 Status: F Source: [employer] 5:34 AM [facility] REPOSITORY TYPE CODE TESTS RESULT OUT OF REFERENCE UNITS RANGE LAB ANEU(LOINC) 2.25-8.10 10 3/mcL Neutrophil, 4.30 Absolute Performed By: #### CBC, ADIFF, ANEU, BMP, GFR #### [place] [address] BMP Collected: 12/01/2017 Status: F Source: [employer] 5:34 AM [facility] REPOSITORY TYPE CODE TESTS RESULT OUT OF REFERENCE UNITS RANGE LAB GLU(LOINC) 82-115 mg/dL Glucose Level 111 LAB NA(LOINC) 136-145 mEq/L Sodium High Level 148 LAB K(LOINC) 3.5-5.0 mEq/L Potassium Level 4.3 LAB CL(LOINC) 98-110 mEq/L Chloride 109 LAB CO2(LOINC) 22-32 mEq/L CO2 30 LAB EBAL(LOINC 4.0-15.0 mEq/L ) Electrolyte Balance 9.0 LAB BUN(LOINC) 8.0-22.0 mg/dL BUN High 31.0 LAB CRE(LOINC) 0.50-1.20 mg/dL Creatinine Lvl (s) 0.87 LAB BC(LOINC) 10.0-22.0 ratio High BUN/Creatinine 35.6 Ratio LAB CA(LOINC) 8.4-10.1 mg/dL Low Calcium Lvl 7.8 Performed By: #### CBC, ADIFF, ANEU, BMP, GFR #### [place] [address] .GFR Collected: 12/01/2017 Status: F Source: [employer] 5:34 AM [facility] REPOSITORY TYPE CODE TESTS RESULT OUT OF REFERENCE UNITS RANGE LAB GFRAA(LOINC ml/min/1.73 ) sqm GFR >60 [place] Result Comment: GFR Population mean for , Non- Americans Ages 20-29 = 116 mL/min/1.73 sq.m. Ages 30-39 = 107 mL/min/1.73 sq.m. Ages 40-49 = 99 mL/min/1.73 sq.m. Ages 50-59 = 93 mL/min/1.73 sq.m. Ages 60-69 = 85 mL/min/1.73 sq.m. Ages 70+ = 75 mL/min/1.73 sq.m. Chronic Kidney Disease: Less than 60 mL/min/1.73 square meters End Stage Renal Disease: Less than 15 mL/min/1.73 square meters LAB GFRNO(LOINC) ml/min/1.73sqm GFR Non- >60 Result Comment: GFR Population mean for , Non- Americans Ages 20-29 = 116 mL/min/1.73 sq.m. Ages 30-39 = 107 mL/min/1.73 sq.m. Ages 40-49 = 99 mL/min/1.73 sq.m. Ages 50-59 = 93 mL/min/1.73 sq.m. Ages 60-69 = 85 mL/min/1.73 sq.m. Ages 70+ = 75 mL/min/1.73 sq.m. Chronic Kidney Disease: Less than 60 mL/min/1.73 square meters End Stage Renal Disease: Less than 15 mL/min/1.73 square meters Performed By: #### CBC, ADIFF, ANEU, BMP, GFR #### [place] [address] .GFR Collected: 11/28/2017 Status: F Source: [facility] [employer] [employer] 6:55 AM [facility] REPOSITORY TYPE CODE TESTS RESULT OUT OF REFERENCE UNITS RANGE LAB GFRAA(LOINC ml/min/1.73 ) sqm GFR >60 [place] Result Comment: GFR Population mean for , Non- Americans Ages 20-29 = 116 mL/min/1.73 sq.m. Ages 30-39 = 107 mL/min/1.73 sq.m. Ages 40-49 = 99 mL/min/1.73 sq.m. Ages 50-59 = 93 mL/min/1.73 sq.m. Ages 60-69 = 85 mL/min/1.73 sq.m. Ages 70+ = 75 mL/min/1.73 sq.m. Chronic Kidney Disease: Less than 60 mL/min/1.73 square meters End Stage Renal Disease: Less than 15 mL/min/1.73 square meters LAB GFRNO(LOINC) ml/min/1.73sqm GFR Non- 57 Result Comment: GFR Population mean for , Non- Americans Ages 20-29 = 116 mL/min/1.73 sq.m. Ages 30-39 = 107 mL/min/1.73 sq.m. Ages 40-49 = 99 mL/min/1.73 sq.m. Ages 50-59 = 93 mL/min/1.73 sq.m. Ages 60-69 = 85 mL/min/1.73 sq.m. Ages 70+ = 75 mL/min/1.73 sq.m. Chronic Kidney Disease: Less than 60 mL/min/1.73 square meters End Stage Renal Disease: Less than 15 mL/min/1.73 square meters Performed By: #### GFR, CMP #### [place] [address] CMP Collected: 11/28/2017 Status: F Source: [facility] 6:55 AM [facility] REPOSITORY TYPE CODE TESTS RESULT OUT OF REFERENCE UNITS RANGE LAB GLU(LOINC) 82-115 mg/dL Glucose High Level 116 LAB NA(LOINC) 136-145 mEq/L Sodium High Level 146 LAB K(LOINC) 3.5-5.0 mEq/L Potassium Level 4.5 LAB CL(LOINC) 98-110 mEq/L Chloride 110 LAB CO2(LOINC) 22-32 mEq/L CO2 29 LAB EBAL(LOINC 4.0-15.0 mEq/L ) Electrolyte Balance 7.0 LAB BUN(LOINC) 8.0-22.0 mg/dL BUN High 35.0 LAB CRE(LOINC) 0.50-1.20 mg/dL Creatinine Lvl (s) 0.96 LAB BC(LOINC) 10.0-22.0 ratio High BUN/Creatinine 36.5 Ratio LAB CA(LOINC) 8.4-10.1 mg/dL Low Calcium Lvl 7.8 LAB PROT(LOINC 6.0-8.5 G/dL ) Low Total Protein 4.8 LAB ALB(LOINC) 3.2-4.8 G/dL Low Albumin Level 1.6 LAB GLB(LOINC) 1.5-3.8 G/dL Globulin 3.2 LAB AG(LOINC) 0.9-1.6 ratio Low A/G Ratio 0.5 LAB BILT(LOINC 0.2-1.2 mg/dL ) Bili Total 0.2 LAB AP(LOINC) 38-126 U/L Alk Phos 54 LAB AST(LOINC) 8-34 U/L AST/SGOT 12 LAB ALT(LOINC) 10-49 U/L ALT/SGPT 12 Performed By: #### GFR, CMP #### [place] [address] CBC Collected: 11/27/2017 Status: F Source: [facility] 5:44 AM [facility] REPOSITORY TYPE CODE TESTS RESULT OUT OF REFERENCE UNITS RANGE LAB WBC(LOINC) 4.50-10.80 10 3/mcL WBC 7.70 LAB RBCCT(LOINC 4.10-5.30 10 6/mcL ) Low RBC 3.04 LAB HGB(LOINC) 12.0-16.0 G/dL Low Hgb 8.9 LAB HCT(LOINC) 34.0-46.0 % Low Hct 27.1 LAB MCV(LOINC) 80.0-99.0 fL MCV 89.3 LAB MCH(LOINC) 27.0-33.0 pg MCH 29.4 LAB MCHC(LOINC) 32.0-36.0 G/dL MCHC 33.0 LAB RDW(LOINC) 11.5-15.5 % RDW 15.0 LAB PLT(LOINC) 150-450 10 3/mcL Platelet 386 LAB MPV(LOINC) 6.6-10.5 fL MPV 8.0 Performed By: #### CBC, ADIFF, ANEU, BMP, GFR #### [address] [address] .AUTO DIFF Collected: 11/27/2017 Status: F Source: [facility] 5:44 AM [facility] REPOSITORY TYPE CODE TESTS RESULT OUT OF REFERENCE UNITS RANGE LAB SHWETA(LOINC) 50.0-75.0 % Neutrophil % 67.5 LAB LYM(LOINC) 20.0-40.0 % Low Lymphocyte % 19.9 LAB MON(LOINC) 2.0-13.0 % Monocyte % 6.7 LAB EO(LOINC) 0.0-6.0 % Eosinophil % 5.1 LAB BAS(LOINC) 0.0-2.5 % Basophil % 0.8 LAB ABLYM(LOIN 0.90-4.32 10 3/mcL C) Lymphocyte, 1.50 Absolute LAB MARCIA(LOINC 0.09-1.40 10 3/mcL ) Monocyte, 0.50 Absolute LAB AEOS(LOINC 0.00-0.65 10 3/mcL ) Eosinophil, 0.40 Absolute LAB ABAS(LOINC 0.00-0.27 10 3/mcL ) Basophil, 0.10 Absolute Performed By: #### CBC, ADIFF, ANEU, BMP, GFR #### [place] [address] .NEUABS Collected: 11/27/2017 Status: F Source: [facility] 5:44 AM [facility] REPOSITORY TYPE CODE TESTS RESULT OUT OF REFERENCE UNITS RANGE LAB ANEU(LOINC) 2.25-8.10 10 3/mcL Neutrophil, 5.20 Absolute Performed By: #### CBC, ADIFF, ANEU, BMP, GFR #### [place] [address] BMP Collected: 11/27/2017 Status: F Source: [facility] 5:44 AM [facility] REPOSITORY TYPE CODE TESTS RESULT OUT OF REFERENCE UNITS RANGE LAB GLU(LOINC) 82-115 mg/dL Glucose Level 113 LAB NA(LOINC) 136-145 mEq/L Sodium High Level 146 LAB K(LOINC) 3.5-5.0 mEq/L Potassium Level 4.6 LAB CL(LOINC) 98-110 mEq/L Chloride High 111 LAB CO2(LOINC) 22-32 mEq/L CO2 29 LAB EBAL(LOINC 4.0-15.0 mEq/L ) Electrolyte Balance 6.0 LAB BUN(LOINC) 8.0-22.0 mg/dL BUN High 34.0 LAB CRE(LOINC) 0.50-1.20 mg/dL Creatinine Lvl (s) 1.04 LAB BC(LOINC) 10.0-22.0 ratio High BUN/Creatinine 32.7 Ratio LAB CA(LOINC) 8.4-10.1 mg/dL Low Calcium Lvl 8.1 Performed By: #### CBC, ADIFF, ANEU, BMP, GFR #### [place] [address] .GFR Collected: 11/27/2017 Status: F Source: [facility] 5:44 AM [facility] REPOSITORY TYPE CODE TESTS RESULT OUT OF REFERENCE UNITS RANGE LAB GFRAA(LOINC ml/min/1.73 ) sqm GFR >60 [place] Result Comment: GFR Population mean for , Non- Americans Ages 20-29 = 116 mL/min/1.73 sq.m. Ages 30-39 = 107 mL/min/1.73 sq.m. Ages 40-49 = 99 mL/min/1.73 sq.m. Ages 50-59 = 93 mL/min/1.73 sq.m. Ages 60-69 = 85 mL/min/1.73 sq.m. Ages 70+ = 75 mL/min/1.73 sq.m. Chronic Kidney Disease: Less than 60 mL/min/1.73 square meters End Stage Renal Disease: Less than 15 mL/min/1.73 square meters LAB GFRNO(LOINC) ml/min/1.73sqm GFR Non- 52 Result Comment: GFR Population mean for , Non- Americans Ages 20-29 = 116 mL/min/1.73 sq.m. Ages 30-39 = 107 mL/min/1.73 sq.m. Ages 40-49 = 99 mL/min/1.73 sq.m. Ages 50-59 = 93 mL/min/1.73 sq.m. Ages 60-69 = 85 mL/min/1.73 sq.m. Ages 70+ = 75 mL/min/1.73 sq.m. Chronic Kidney Disease: Less than 60 mL/min/1.73 square meters End Stage Renal Disease: Less than 15 mL/min/1.73 square meters Performed By: #### CBC, ADIFF, ANEU, BMP, GFR #### [address] [address] CBC Collected: 11/25/2017 Status: F Source: [facility] 5:54 AM [facility] REPOSITORY TYPE CODE TESTS RESULT OUT OF REFERENCE UNITS RANGE LAB WBC(LOINC) 4.50-10.80 10 3/mcL WBC 6.90 LAB RBCCT(LOINC 4.10-5.30 10 6/mcL ) Low RBC 2.85 LAB HGB(LOINC) 12.0-16.0 G/dL Low Hgb 8.3 LAB HCT(LOINC) 34.0-46.0 % Low Hct 25.5 LAB MCV(LOINC) 80.0-99.0 fL MCV 89.5 LAB MCH(LOINC) 27.0-33.0 pg MCH 29.2 LAB MCHC(LOINC) 32.0-36.0 G/dL MCHC 32.6 LAB RDW(LOINC) 11.5-15.5 % RDW 14.8 LAB PLT(LOINC) 150-450 10 3/mcL Platelet 389 LAB MPV(LOINC) 6.6-10.5 fL MPV 7.7 Performed By: #### CBC, ADIFF, ANEU, BMP, GFR #### [address] [address] .AUTO DIFF Collected: 11/25/2017 Status: F Source: [facility] 5:54 AM [facility] REPOSITORY TYPE CODE TESTS RESULT OUT OF REFERENCE UNITS RANGE LAB SHWETA(LOINC) 50.0-75.0 % Neutrophil % 66.4 LAB LYM(LOINC) 20.0-40.0 % Lymphocyte % 21.2 LAB MON(LOINC) 2.0-13.0 % Monocyte % 7.5 LAB EO(LOINC) 0.0-6.0 % Eosinophil % 4.0 LAB BAS(LOINC) 0.0-2.5 % Basophil % 0.9 LAB ABLYM(LOIN 0.90-4.32 10 3/mcL C) Lymphocyte, 1.50 Absolute LAB MACRIA(LOINC 0.09-1.40 10 3/mcL ) Monocyte, 0.50 Absolute LAB AEOS(LOINC 0.00-0.65 10 3/mcL ) Eosinophil, 0.30 Absolute LAB ABAS(LOINC 0.00-0.27 10 3/mcL ) Basophil, 0.10 Absolute Performed By: #### CBC, ADIFF, ANEU, BMP, GFR #### [place] [address] .NEUABS Collected: 11/25/2017 Status: F Source: [facility] 5:54 AM [facility] REPOSITORY TYPE CODE TESTS RESULT OUT OF REFERENCE UNITS RANGE LAB ANEU(LOINC) 2.25-8.10 10 3/mcL Neutrophil, 4.60 Absolute Performed By: #### CBC, ADIFF, ANEU, BMP, GFR #### [place] [address] BMP Collected: 11/25/2017 Status: F Source: [facility] 5:54 AM [facility] REPOSITORY TYPE CODE TESTS RESULT OUT OF REFERENCE UNITS RANGE LAB GLU(LOINC) 82-115 mg/dL Glucose High Level 120 LAB NA(LOINC) 136-145 mEq/L Sodium High Level 147 LAB K(LOINC) 3.5-5.0 mEq/L Potassium Level 4.0 LAB CL(LOINC) 98-110 mEq/L Chloride High 114 LAB CO2(LOINC) 22-32 mEq/L CO2 24 LAB EBAL(LOINC 4.0-15.0 mEq/L ) Electrolyte Balance 9.0 LAB BUN(LOINC) 8.0-22.0 mg/dL BUN High 29.0 LAB CRE(LOINC) 0.50-1.20 mg/dL Creatinine Lvl (s) 1.02 LAB BC(LOINC) 10.0-22.0 ratio High BUN/Creatinine 28.4 Ratio LAB CA(LOINC) 8.4-10.1 mg/dL Low Calcium Lvl 7.1 Performed By: #### CBC, ADIFF, ANEU, BMP, GFR #### [place] [address] .GFR Collected: 11/25/2017 Status: F Source: [facility] 5:54 AM [facility] REPOSITORY TYPE CODE TESTS RESULT OUT OF REFERENCE UNITS RANGE LAB GFRAA(LOINC ml/min/1.73 ) sqm GFR >60 [place] Result Comment: GFR Population mean for , Non- Americans Ages 20-29 = 116 mL/min/1.73 sq.m. Ages 30-39 = 107 mL/min/1.73 sq.m. Ages 40-49 = 99 mL/min/1.73 sq.m. Ages 50-59 = 93 mL/min/1.73 sq.m. Ages 60-69 = 85 mL/min/1.73 sq.m. Ages 70+ = 75 mL/min/1.73 sq.m. Chronic Kidney Disease: Less than 60 mL/min/1.73 square meters End Stage Renal Disease: Less than 15 mL/min/1.73 square meters LAB GFRNO(LOINC) ml/min/1.73sqm GFR Non- 53 Result Comment: GFR Population mean for , Non- Americans Ages 20-29 = 116 mL/min/1.73 sq.m. Ages 30-39 = 107 mL/min/1.73 sq.m. Ages 40-49 = 99 mL/min/1.73 sq.m. Ages 50-59 = 93 mL/min/1.73 sq.m. Ages 60-69 = 85 mL/min/1.73 sq.m. Ages 70+ = 75 mL/min/1.73 sq.m. Chronic Kidney Disease: Less than 60 mL/min/1.73 square meters End Stage Renal Disease: Less than 15 mL/min/1.73 square meters Performed By: #### CBC, ADSTELLA, ANEU, BMP, GFR #### [place] [address] CAION Collected: 11/23/2017 Status: F Source: [facility] 6:54 AM [facility] REPOSITORY TYPE CODE TESTS RESULT OUT OF REFERENCE UNITS RANGE LAB CAION(LOINC 1.12-1.32 mmol/L ) Low Calcium 1.03 Ionized Performed By: #### CAION, BMP, GFR, PRALB #### [place] [address] BMP Collected: 11/23/2017 Status: F Source: [facility] 6:54 AM [facility] REPOSITORY TYPE CODE TESTS RESULT OUT OF REFERENCE UNITS RANGE LAB GLU(LOINC) 82-115 mg/dL Glucose High Level 117 LAB NA(LOINC) 136-145 mEq/L Sodium High Level 146 LAB K(LOINC) 3.5-5.0 mEq/L Potassium Level 3.9 LAB CL(LOINC) 98-110 mEq/L Chloride 110 LAB CO2(LOINC) 22-32 mEq/L CO2 28 LAB EBAL(LOINC 4.0-15.0 mEq/L ) Electrolyte Balance 8.0 LAB BUN(LOINC) 8.0-22.0 mg/dL BUN High 29.0 LAB CRE(LOINC) 0.50-1.20 mg/dL Creatinine High Lvl (s) 1.23 LAB BC(LOINC) 10.0-22.0 ratio High BUN/Creatinine 23.6 Ratio LAB CA(LOINC) 8.4-10.1 mg/dL Low Calcium Lvl 7.3 Performed By: #### CAISTEPHANIA, BMP, GFR, PRALB #### [place] [address] .GFR Collected: 11/23/2017 Status: F Source: [facility] 6:54 AM [facility] REPOSITORY TYPE CODE TESTS RESULT OUT OF REFERENCE UNITS RANGE LAB GFRAA(LOINC ml/min/1.73 ) sqm GFR 52 [place] Result Comment: GFR Population mean for , Non- Americans Ages 20-29 = 116 mL/min/1.73 sq.m. Ages 30-39 = 107 mL/min/1.73 sq.m. Ages 40-49 = 99 mL/min/1.73 sq.m. Ages 50-59 = 93 mL/min/1.73 sq.m. Ages 60-69 = 85 mL/min/1.73 sq.m. Ages 70+ = 75 mL/min/1.73 sq.m. Chronic Kidney Disease: Less than 60 mL/min/1.73 square meters End Stage Renal Disease: Less than 15 mL/min/1.73 square meters LAB GFRNO(LOINC) ml/min/1.73sqm GFR Non- 43 Result Comment: GFR Population mean for , Non- Americans Ages 20-29 = 116 mL/min/1.73 sq.m. Ages 30-39 = 107 mL/min/1.73 sq.m. Ages 40-49 = 99 mL/min/1.73 sq.m. Ages 50-59 = 93 mL/min/1.73 sq.m. Ages 60-69 = 85 mL/min/1.73 sq.m. Ages 70+ = 75 mL/min/1.73 sq.m. Chronic Kidney Disease: Less than 60 mL/min/1.73 square meters End Stage Renal Disease: Less than 15 mL/min/1.73 square meters Performed By: #### CAION, BMP, GFR, PRALB #### [address] [address] PRALB Collected: 11/23/2017 Status: F Source: [facility] 6:54 AM [facility] REPOSITORY TYPE CODE TESTS RESULT OUT OF REFERENCE UNITS RANGE LAB PRALB(LOIN 18.0-38.0 mg/dL C) Low Prealbumin 13.5 Performed By: #### CAION, BMP, GFR, PRALB #### [place] [address] CBC Collected: 11/22/2017 Status: F Source: [facility] 6:13 AM [facility] REPOSITORY TYPE CODE TESTS RESULT OUT OF REFERENCE UNITS RANGE LAB WBC(LOINC) 4.50-10.80 10 3/mcL WBC 8.30 LAB RBCCT(LOINC 4.10-5.30 10 6/mcL ) Low RBC 2.85 LAB HGB(LOINC) 12.0-16.0 G/dL Low Hgb 8.5 LAB HCT(LOINC) 34.0-46.0 % Low Hct 25.5 LAB MCV(LOINC) 80.0-99.0 fL MCV 89.5 LAB MCH(LOINC) 27.0-33.0 pg MCH 29.8 LAB MCHC(LOINC) 32.0-36.0 G/dL MCHC 33.3 LAB RDW(LOINC) 11.5-15.5 % RDW 14.4 LAB PLT(LOINC) 150-450 10 3/mcL Platelet 356 LAB MPV(LOINC) 6.6-10.5 fL MPV 8.2 Performed By: #### CBC, ADIFF, ANEU, BMP, GFR #### [address] [address] .AUTO DIFF Collected: 11/22/2017 Status: F Source: [facility] 6:13 AM [facility] REPOSITORY TYPE CODE TESTS RESULT OUT OF REFERENCE UNITS RANGE LAB SHWETA(LOINC) 50.0-75.0 % Neutrophil % 74.2 LAB LYM(LOINC) 20.0-40.0 % Low Lymphocyte % 13.3 LAB MON(LOINC) 2.0-13.0 % Monocyte % 7.2 LAB EO(LOINC) 0.0-6.0 % Eosinophil % 4.3 LAB BAS(LOINC) 0.0-2.5 % Basophil % 1.0 LAB ABLYM(LOIN 0.90-4.32 10 3/mcL C) Lymphocyte, 1.10 Absolute LAB MARCIA(LOINC 0.09-1.40 10 3/mcL ) Monocyte, 0.60 Absolute LAB AEOS(LOINC 0.00-0.65 10 3/mcL ) Eosinophil, 0.40 Absolute LAB ABAS(LOINC 0.00-0.27 10 3/mcL ) Basophil, 0.10 Absolute Performed By: #### CBC, ADIFF, ANEU, BMP, GFR #### [place] [address] .NEUABS Collected: 11/22/2017 Status: F Source: [facility] 6:13 AM [facility] REPOSITORY TYPE CODE TESTS RESULT OUT OF REFERENCE UNITS RANGE LAB ANEU(LOINC) 2.25-8.10 10 3/mcL Neutrophil, 6.20 Absolute Performed By: #### CBC, ADIFF, ANEU, BMP, GFR #### [place] [address] BMP Collected: 11/22/2017 Status: F Source: [facility] 6:13 AM [facility] REPOSITORY TYPE CODE TESTS RESULT OUT OF RANGE REFERENCE UNITS LAB GLU(LOINC) 82-115 mg/dL High Glucose Level 126 LAB NA(LOINC) 136-145 mEq/L Sodium Level 142 LAB K(LOINC) 3.5-5.0 mEq/L Potassium Level 3.7 LAB CL(LOINC) 98-110 mEq/L Chloride 105 LAB CO2(LOINC) 22-32 mEq/L CO2 28 LAB EBAL(LOINC 4.0-15.0 mEq/L ) Electrolyte Balance 9.0 LAB BUN(LOINC) 8.0-22.0 mg/dL High BUN 31.0 LAB CRE(LOINC) 0.50-1.20 mg/dL High Creatinine Lvl (s) 1.51 LAB BC(LOINC) 10.0-22.0 ratio BUN/Creatinine 20.5 Ratio LAB CA(LOINC) 8.4-10.1 mg/dL Calcium Lvl Abnormal 6.9 Alert Performed By: #### CBC, ADIFF, ANEU, BMP, GFR #### [address] [address] .GFR Collected: 11/22/2017 Status: F Source: [facility] 6:13 AM [facility] REPOSITORY TYPE CODE TESTS RESULT OUT OF REFERENCE UNITS RANGE LAB GFRAA(LOINC ml/min/1.73 ) sqm GFR 41 [place] Result Comment: GFR Population mean for , Non- Americans Ages 20-29 = 116 mL/min/1.73 sq.m. Ages 30-39 = 107 mL/min/1.73 sq.m. Ages 40-49 = 99 mL/min/1.73 sq.m. Ages 50-59 = 93 mL/min/1.73 sq.m. Ages 60-69 = 85 mL/min/1.73 sq.m. Ages 70+ = 75 mL/min/1.73 sq.m. Chronic Kidney Disease: Less than 60 mL/min/1.73 square meters End Stage Renal Disease: Less than 15 mL/min/1.73 square meters LAB GFRNO(LOINC) ml/min/1.73sqm GFR Non- 34 Result Comment: GFR Population mean for , Non- Americans Ages 20-29 = 116 mL/min/1.73 sq.m. Ages 30-39 = 107 mL/min/1.73 sq.m. Ages 40-49 = 99 mL/min/1.73 sq.m. Ages 50-59 = 93 mL/min/1.73 sq.m. Ages 60-69 = 85 mL/min/1.73 sq.m. Ages 70+ = 75 mL/min/1.73 sq.m. Chronic Kidney Disease: Less than 60 mL/min/1.73 square meters End Stage Renal Disease: Less than 15 mL/min/1.73 square meters Performed By: #### CBC, ADIFF, ANEU, BMP, GFR #### [address] [address] CBC Collected: 11/21/2017 Status: F Source: [facility] 6:45 AM [facility] REPOSITORY TYPE CODE TESTS RESULT OUT OF REFERENCE UNITS RANGE LAB WBC(LOINC) 4.50-10.80 10 3/mcL WBC 10.10 LAB RBCCT(LOINC 4.10-5.30 10 6/mcL ) Low RBC 2.89 LAB HGB(LOINC) 12.0-16.0 G/dL Low Hgb 8.6 LAB HCT(LOINC) 34.0-46.0 % Low Hct 25.9 LAB MCV(LOINC) 80.0-99.0 fL MCV 89.7 LAB MCH(LOINC) 27.0-33.0 pg MCH 29.7 LAB MCHC(LOINC) 32.0-36.0 G/dL MCHC 33.2 LAB RDW(LOINC) 11.5-15.5 % RDW 14.6 LAB PLT(LOINC) 150-450 10 3/mcL Platelet 336 LAB MPV(LOINC) 6.6-10.5 fL MPV 8.0 Performed By: #### CBC, ADIFF, ANEU, BMP, GFR #### [address] [address] .AUTO DIFF Collected: 11/21/2017 Status: F Source: [facility] 6:45 AM [facility] REPOSITORY TYPE CODE TESTS RESULT OUT OF REFERENCE UNITS RANGE LAB SHWETA(LOINC) 50.0-75.0 % High Neutrophil % 81.5 LAB LYM(LOINC) 20.0-40.0 % Low Lymphocyte % 9.1 LAB MON(LOINC) 2.0-13.0 % Monocyte % 5.4 LAB EO(LOINC) 0.0-6.0 % Eosinophil % 3.3 LAB BAS(LOINC) 0.0-2.5 % Basophil % 0.7 LAB ABLYM(LOIN 0.90-4.32 10 3/mcL C) Lymphocyte, 0.90 Absolute LAB MARCIA(LOINC 0.09-1.40 10 3/mcL ) Monocyte, 0.50 Absolute LAB AEOS(LOINC 0.00-0.65 10 3/mcL ) Eosinophil, 0.30 Absolute LAB ABAS(LOINC 0.00-0.27 10 3/mcL ) Basophil, 0.10 Absolute Performed By: #### CBC, ADIFF, ANEU, BMP, GFR #### [address] [address] .NEUABS Collected: 11/21/2017 Status: F Source: [facility] 6:45 AM [facility] REPOSITORY TYPE CODE TESTS RESULT OUT OF REFERENCE UNITS RANGE LAB ANEU(LOINC) 2.25-8.10 10 3/mcL High Neutrophil, 8.30 Absolute Performed By: #### DENISA, ADIFF, ANEU, BMP, GFR #### [place] [address] BMP Collected: 11/21/2017 Status: F Source: [facility] 6:45 AM [facility] REPOSITORY TYPE CODE TESTS RESULT OUT OF REFERENCE UNITS RANGE LAB GLU(LOINC) 82-115 mg/dL Glucose High Level 133 LAB NA(LOINC) 136-145 mEq/L Sodium Level 143 LAB K(LOINC) 3.5-5.0 mEq/L Potassium Level 3.5 LAB CL(LOINC) 98-110 mEq/L Chloride 104 LAB CO2(LOINC) 22-32 mEq/L CO2 29 LAB EBAL(LOINC 4.0-15.0 mEq/L ) Electrolyte Balance 10.0 LAB BUN(LOINC) 8.0-22.0 mg/dL BUN High 30.0 LAB CRE(LOINC) 0.50-1.20 mg/dL Creatinine High Lvl (s) 1.67 LAB BC(LOINC) 10.0-22.0 ratio BUN/Creatinine 18.0 Ratio LAB CA(LOINC) 8.4-10.1 mg/dL Low Calcium Lvl 7.2 Performed By: #### DENISA, ADIFF, ANEU, BMP, GFR #### [place] [address] .GFR Collected: 11/21/2017 Status: F Source: [facility] 6:45 [facility] REPOSITORY TYPE CODE TESTS RESULT OUT OF REFERENCE UNITS RANGE LAB GFRAA(LOINC ml/min/1.73 ) sqm GFR 37 [place] Result Comment: GFR Population mean for , Non- Americans Ages 20-29 = 116 mL/min/1.73 sq.m. Ages 30-39 = 107 mL/min/1.73 sq.m. Ages 40-49 = 99 mL/min/1.73 sq.m. Ages 50-59 = 93 mL/min/1.73 sq.m. Ages 60-69 = 85 mL/min/1.73 sq.m. Ages 70+ = 75 mL/min/1.73 sq.m. Chronic Kidney Disease: Less than 60 mL/min/1.73 square meters End Stage Renal Disease: Less than 15 mL/min/1.73 square meters LAB GFRNO(LOINC) ml/min/1.73sqm GFR Non- 30 Result Comment: GFR Population mean for , Non- Americans Ages 20-29 = 116 mL/min/1.73 sq.m. Ages 30-39 = 107 mL/min/1.73 sq.m. Ages 40-49 = 99 mL/min/1.73 sq.m. Ages 50-59 = 93 mL/min/1.73 sq.m. Ages 60-69 = 85 mL/min/1.73 sq.m. Ages 70+ = 75 mL/min/1.73 sq.m. Chronic Kidney Disease: Less than 60 mL/min/1.73 square meters End Stage Renal Disease: Less than 15 mL/min/1.73 square meters Performed By: #### CBC, ADIFF, ANEU, BMP, GFR #### [place] [address] US RENAL Observed: 11/20/2017 Status: F Source: [facility] 3:30 PM [facility] REPOSITORY ORIGINAL US RENAL (US RETROPERITONEUM COMPLETE), 11/20/2017 CLINICAL STATEMENT: increased BUN and creatinine. COMPARISON: None The kidneys are normal in size, contour, cortical thickness, and echogenicity. The right and left kidneys measure 11.8 x 5.2 x 6.1 cm and 10.5 x 6.3 x 6.2 cm in size, respectively. There is no renal micah cification, solid renal mass, pelvicaliectasis, or perirenal fluid. There is color flow signal in each kidney. Urinary bladder lumen is not visualized. There is no free fluid seen in the abdomen. Incidental hyperechoic liver raising concern for fatty infiltration. IMPRESSION: No significant renal abnormality. Urinary bladder lumen is not visualized. There is no notation from the corporate strategy analyst concerning possible limitation accounting for lack of bladder lumen visualization. Suspect fatty liver. Interpreted By: Casey Arevalo MD Preliminary Report By: Casey Arevalo MD Electronically Signed By: Casey Arevalo MD Dictated Date: 11/20/2017 7:12:32 PM Prelim Date: 11/20/2017 7:12:32 PM Sign Date: 11/20/2017 7:14:58 PM WIN Collected: 11/20/2017 Status: F Source: [facility] 1:37 PM [facility] REPOSITORY TYPE CODE TESTS RESULT OUT OF REFERENCE UNITS RANGE LAB KU(LOINC) mEq/L U Potassium 17.0 Performed By: #### WIN, NAUR #### [place] [address] NAUR Collected: 11/20/2017 Status: F Source: [facility] 1:37 PM [facility] REPOSITORY TYPE CODE TESTS RESULT OUT OF REFERENCE UNITS RANGE LAB GHADA(LOINC) mEq/L U Sodium 25.0 Performed By: #### WIN, NAUR #### [place] [address] EOS Collected: 11/20/2017 Status: F Source: [facility] 1:37 PM [facility] REPOSITORY TYPE CODE TESTS RESULT OUT OF REFERENCE UNITS RANGE LAB EOSRC(LOIN C) Eosinophil Spec Urine Type LAB EOSMR(LOIN C) Eos Smear 1-5 Result Comment: The units for an eosinophil smear depend upon specimen type: Stool, sputum, nasal specimens: number of cells/hp field Urine, bronchial lavage: number of cells/100 cells (%) Performed By: #### EOS #### [place] [address] BMP Collected: 11/20/2017 Status: F Source: [facility] 6:16 AM [facility] REPOSITORY TYPE CODE TESTS RESULT OUT OF REFERENCE UNITS RANGE LAB GLU(LOINC) 82-115 mg/dL Glucose High Level 121 LAB NA(LOINC) 136-145 mEq/L Sodium Level 139 LAB K(LOINC) 3.5-5.0 mEq/L Potassium Level 3.5 LAB CL(LOINC) 98-110 mEq/L Chloride 99 LAB CO2(LOINC) 22-32 mEq/L CO2 30 LAB EBAL(LOINC 4.0-15.0 mEq/L ) Electrolyte Balance 10.0 LAB BUN(LOINC) 8.0-22.0 mg/dL BUN High 27.0 LAB CRE(LOINC) 0.50-1.20 mg/dL Creatinine High Lvl (s) 1.70 LAB BC(LOINC) 10.0-22.0 ratio BUN/Creatinine 15.9 Ratio LAB CA(LOINC) 8.4-10.1 mg/dL Low Calcium Lvl 7.2 Performed By: #### SHAYAN, GFR #### [address] [address] .GFR Collected: 11/20/2017 Status: F Source: [facility] 6:16 AM [facility] REPOSITORY TYPE CODE TESTS RESULT OUT OF REFERENCE UNITS RANGE LAB GFRAA(LOINC ml/min/1.73 ) sqm GFR 36 [place] Result Comment: GFR Population mean for , Non- Americans Ages 20-29 = 116 mL/min/1.73 sq.m. Ages 30-39 = 107 mL/min/1.73 sq.m. Ages 40-49 = 99 mL/min/1.73 sq.m. Ages 50-59 = 93 mL/min/1.73 sq.m. Ages 60-69 = 85 mL/min/1.73 sq.m. Ages 70+ = 75 mL/min/1.73 sq.m. Chronic Kidney Disease: Less than 60 mL/min/1.73 square meters End Stage Renal Disease: Less than 15 mL/min/1.73 square meters LAB GFRNO(LOINC) ml/min/1.73sqm GFR Non- 30 Result Comment: GFR Population mean for , Non- Americans Ages 20-29 = 116 mL/min/1.73 sq.m. Ages 30-39 = 107 mL/min/1.73 sq.m. Ages 40-49 = 99 mL/min/1.73 sq.m. Ages 50-59 = 93 mL/min/1.73 sq.m. Ages 60-69 = 85 mL/min/1.73 sq.m. Ages 70+ = 75 mL/min/1.73 sq.m. Chronic Kidney Disease: Less than 60 mL/min/1.73 square meters End Stage Renal Disease: Less than 15 mL/min/1.73 square meters Performed By: #### BMP, GFR #### [address] [address] CBC Collected: 11/19/2017 Status: F Source: [facility] 5:03 AM [facility] REPOSITORY TYPE CODE TESTS RESULT OUT OF REFERENCE UNITS RANGE LAB WBC(LOINC) 4.50-10.80 10 3/mcL WBC 10.70 LAB RBCCT(LOINC 4.10-5.30 10 6/mcL ) Low RBC 3.08 LAB HGB(LOINC) 12.0-16.0 G/dL Low Hgb 9.1 LAB HCT(LOINC) 34.0-46.0 % Low Hct 27.7 LAB MCV(LOINC) 80.0-99.0 fL MCV 90.0 LAB MCH(LOINC) 27.0-33.0 pg MCH 29.6 LAB MCHC(LOINC) 32.0-36.0 G/dL MCHC 32.9 LAB RDW(LOINC) 11.5-15.5 % RDW 14.7 LAB PLT(LOINC) 150-450 10 3/mcL Platelet 348 LAB MPV(LOINC) 6.6-10.5 fL MPV 7.9 Performed By: #### CBC, ADIFF, ANEU, PHOS, BMP, GFR #### [address] [address] .AUTO DIFF Collected: 11/19/2017 Status: F Source: [facility] 5:03 AM [facility] REPOSITORY TYPE CODE TESTS RESULT OUT OF REFERENCE UNITS RANGE LAB SHWETA(LOINC) 50.0-75.0 % High Neutrophil % 79.3 LAB LYM(LOINC) 20.0-40.0 % Low Lymphocyte % 10.1 LAB MON(LOINC) 2.0-13.0 % Monocyte % 8.5 LAB EO(LOINC) 0.0-6.0 % Eosinophil % 1.5 LAB BAS(LOINC) 0.0-2.5 % Basophil % 0.6 LAB ABLYM(LOIN 0.90-4.32 10 3/mcL C) Lymphocyte, 1.10 Absolute LAB MARCIA(LOINC 0.09-1.40 10 3/mcL ) Monocyte, 0.90 Absolute LAB AEOS(LOINC 0.00-0.65 10 3/mcL ) Eosinophil, 0.20 Absolute LAB ABAS(LOINC 0.00-0.27 10 3/mcL ) Basophil, 0.10 Absolute Performed By: #### CBC, ADIFF, ANEU, PHOS, BMP, GFR #### [address] [address] .NEUABS Collected: 11/19/2017 Status: F Source: [facility] 5:03 AM [facility] REPOSITORY TYPE CODE TESTS RESULT OUT OF REFERENCE UNITS RANGE LAB ANEU(LOINC) 2.25-8.10 10 3/mcL High Neutrophil, 8.50 Absolute Performed By: #### CBC, ADIFF, ANEU, PHOS, BMP, GFR #### [place] [address] PHOS Collected: 11/19/2017 Status: F Source: [facility] 5:03 AM [facility] REPOSITORY TYPE CODE TESTS RESULT OUT OF REFERENCE UNITS RANGE LAB PHOS(LOINC 2.5-4.5 mg/dL ) High Phosphorus 5.0 Performed By: #### CBC, ADIFF, ANEU, PHOS, BMP, GFR #### [place] [address] BMP Collected: 11/19/2017 Status: F Source: [facility] 5:03 AM [facility] REPOSITORY TYPE CODE TESTS RESULT OUT OF REFERENCE UNITS RANGE LAB GLU(LOINC) 82-115 mg/dL Glucose High Level 131 LAB NA(LOINC) 136-145 mEq/L Sodium Level 138 LAB K(LOINC) 3.5-5.0 mEq/L Potassium Level 3.9 LAB CL(LOINC) 98-110 mEq/L Chloride 98 LAB CO2(LOINC) 22-32 mEq/L CO2 29 LAB EBAL(LOINC 4.0-15.0 mEq/L ) Electrolyte Balance 11.0 LAB BUN(LOINC) 8.0-22.0 mg/dL BUN 19.0 LAB CRE(LOINC) 0.50-1.20 mg/dL Creatinine High Lvl (s) 1.37 LAB BC(LOINC) 10.0-22.0 ratio BUN/Creatinine 13.9 Ratio LAB CA(LOINC) 8.4-10.1 mg/dL Low Calcium Lvl 7.5 Performed By: #### CBC, ADIFF, ANEU, PHOS, BMP, GFR #### [place] [address] .GFR Collected: 11/19/2017 Status: F Source: [facility] 5:03 AM [facility] REPOSITORY TYPE CODE TESTS RESULT OUT OF REFERENCE UNITS RANGE LAB GFRAA(LOINC ml/min/1.73 ) sqm GFR 46 Scottish Result Comment: GFR Population mean for , Non- Americans Ages 20-29 = 116 mL/min/1.73 sq.m. Ages 30-39 = 107 mL/min/1.73 sq.m. Ages 40-49 = 99 mL/min/1.73 sq.m. Ages 50-59 = 93 mL/min/1.73 sq.m. Ages 60-69 = 85 mL/min/1.73 sq.m. Ages 70+ = 75 mL/min/1.73 sq.m. Chronic Kidney Disease: Less than 60 mL/min/1.73 square meters End Stage Renal Disease: Less than 15 mL/min/1.73 square meters LAB GFRNO(LOINC) ml/min/1.73sqm GFR Non- 38 Result Comment: GFR Population mean for , Non- Americans Ages 20-29 = 116 mL/min/1.73 sq.m. Ages 30-39 = 107 mL/min/1.73 sq.m. Ages 40-49 = 99 mL/min/1.73 sq.m. Ages 50-59 = 93 mL/min/1.73 sq.m. Ages 60-69 = 85 mL/min/1.73 sq.m. Ages 70+ = 75 mL/min/1.73 sq.m. Chronic Kidney Disease: Less than 60 mL/min/1.73 square meters End Stage Renal Disease: Less than 15 mL/min/1.73 square meters Performed By: #### CBC, ADIFF, ANEU, PHOS, BMP, GFR #### [address] [address] Observed: 11/18/2017 Status: F Source: [facility] 10:32 AM [facility] RE[facility]IT[facility] . MICRO - Microbiology PROCEDURE: Culture Tissue [*1] SOURCE: Tissue BODY SITE: Abdomen COLLECTED DATE/TIME: 11/18/2017 10:32 EDT RECEIVED DATE/TIME: 11/18/2017 10:48 EDT START DATE/TIME: 11/18/2017 10:49 EDT FREE TEXT SOURCE: CULTURE FINAL REPORTS Final Report [] Verified Date/Time/Personnel: 11/22/2017 14:35 EDT Light Serratia marcescens Light Serratia marcescens #2 1 colony Enterococcus raffinosus Light Klebsiella pneumoniae No anaerobes isolated at 96 hours. PRELIMINARY REPORTS Preliminary Report [] Verified Date/Time/Personnel: 11/22/2017 07:19 EDT Light Serratia marcescens Light Serratia marcescens #2 1 colony Enterococcus raffinosus Light Klebsiella pneumoniae No anaerobes isolated to date. Preliminary Report [] Verified Date/Time/Personnel: 11/21/2017 12:53 EDT Light Serratia marcescens Light Serratia marcescens #2 1 colony Enterococcus raffinosus Streptomycin Synergy to follow. Light Klebsiella pneumoniae No anaerobes isolated to date. Preliminary Report [] Verified Date/Time/Personnel: 11/21/2017 12:53 EDT Light Serratia marcescens Light Serratia marcescens #2 1 colony Enterococcus raffinosus Streptomycin Synergy to follow. Light Klebsiella pneumoniae Preliminary Report [] Verified Date/Time/Personnel: 11/20/2017 11:21 EDT Light Gram Negative Rods Final identification and REID to follow. Light Gram Negative Rods #2 Final identification and REID to follow. 1 colony Presumptive Group D Enterococcus Final identification and REID to follow. Light Gram Negative Rods #3 Final identification and REID to follow. Preliminary Report [] Verified Date/Time/Personnel: 11/19/2017 13:41 EDT Culture results pending. STAINS GS [] Verified Date/Time/Personnel: 11/18/2017 14:03 EDT Rare Gram Negative Rods MICRO - Microbiology SUSCEPTIBILITY RESULTS Serratia marcescens Antibiotic REID Dilutn REID Interp Amoxicillin/ >16/8 Resistant Clavulanate Ampicillin >16 Resistant Cefazolin >16 Resistant Cefotaxime <=2 Susceptible Cefuroxime >16 Resistant Ciprofloxacin <=1 Susceptible Gentamicin <=4 Susceptible Levofloxacin <=2 Susceptible Meropenem <=1 Susceptible Piperacillin/ 64 Intermediate Tazobactam Trimethoprim/ <=2/38 Susceptible Sulfa Serratia marcescens #2 Antibiotic REID Dilutn REID Interp Amoxicillin/ >16/8 Resistant Clavulanate Ampicillin >16 Resistant Cefazolin >16 Resistant Cefotaxime <=2 Susceptible Cefuroxime >16 Resistant Ciprofloxacin <=1 Susceptible Gentamicin <=4 Susceptible Levofloxacin <=2 Susceptible Meropenem <=1 Susceptible Piperacillin/ <=16 Susceptible Tazobactam Trimethoprim/ <=2/38 Susceptible Sulfa Enterococcus raffinosus Antibiotic REID Dilutn REID Interp Ampicillin 4 Susceptible Gentamicin <=500 Susceptible synergy Penicillin 2 Susceptible Streptomycin <=1000 Susceptible synergy Vancomycin 0.5 Susceptible Klebsiella pneumoniae Antibiotic REID Dilutn REID Interp Amoxicillin/ <=8/4 Susceptible Clavulanate Ampicillin >16 Resistant Cefazolin <=8 Susceptible Cefotaxime <=2 Susceptible Ciprofloxacin <=1 Susceptible Gentamicin <=4 Susceptible Levofloxacin <=2 Susceptible Meropenem <=1 Susceptible Piperacillin/ <=16 Susceptible Tazobactam Trimethoprim/ <=2/38 Susceptible Sulfa Performing Locations *1: This test was performed at: [facility] [place], [address] [place] [address], [address] [place] [address] Performed By: #### CTISS #### [place] [address] K Collected: 11/18/2017 Status: F Source: [facility] 5:01 AM [facility] REPOSITORY TYPE CODE TESTS RESULT OUT OF REFERENCE UNITS RANGE LAB K(LOINC) 3.5-5.0 mEq/L Potassium Level 4.2 Performed By: #### K #### [place] [address] PRO Collected: 11/17/2017 Status: F Source: [facility] 6:32 AM [facility] REPOSITORY Order Comment: re-draw TYPE CODE TESTS RESULT OUT OF REFERENCE UNITS RANGE LAB PT(LOINC) 9.0-14.5 seconds Protime 12.2 Result Comment: Effective 09/02/07, Protime results may be affected by some antibiotics (i.e. Ciprofloxacin, Azithromycin, Bactrim) which may potentiate the action of oral anticoagulants, with further increase in Protime/INR. LAB INR(LOINC) ratio PT International Ratio 1.0 Result Comment: The [employer] (CHEST, 1992, 102:312S-25S) recommended therapeutic range for oral anticoagulant therapy is: LOW RISK: Prophylaxis of venous thrombosis INR: 2.0-3.0 Treatment of pulmonary embolism 2.0-3.0 Prevention of systemic embolism 2.0-3.0 HIGH RISK: Mechanical prosthetic valves 2.5-3.5 Performed By: #### PRO #### [address] [address] CBC Collected: 11/17/2017 Status: F Source: [facility] 5:23 AM [facility] REPOSITORY TYPE CODE TESTS RESULT OUT OF REFERENCE UNITS RANGE LAB WBC(LOINC) 4.50-10.80 10 3/mcL WBC 7.90 LAB RBCCT(LOINC 4.10-5.30 10 6/mcL ) Low RBC 3.04 LAB HGB(LOINC) 12.0-16.0 G/dL Low Hgb 9.1 LAB HCT(LOINC) 34.0-46.0 % Low Hct 27.5 LAB MCV(LOINC) 80.0-99.0 fL MCV 90.5 LAB MCH(LOINC) 27.0-33.0 pg MCH 29.9 LAB MCHC(LOINC) 32.0-36.0 G/dL MCHC 33.1 LAB RDW(LOINC) 11.5-15.5 % RDW 14.5 LAB PLT(LOINC) 150-450 10 3/mcL Platelet 385 LAB MPV(LOINC) 6.6-10.5 fL MPV 7.8 Performed By: #### VANCT, CBC, ADIFF, ANEU, GFR, BMP #### [place] [address] .AUTO DIFF Collected: 11/17/2017 Status: F Source: [facility] 5:23 [facility] REPOSITORY TYPE CODE TESTS RESULT OUT OF REFERENCE UNITS RANGE LAB SHWETA(LOINC) 50.0-75.0 % Neutrophil % 67.4 LAB LYM(LOINC) 20.0-40.0 % Lymphocyte % 21.3 LAB MON(LOINC) 2.0-13.0 % Monocyte % 8.3 LAB EO(LOINC) 0.0-6.0 % Eosinophil % 2.4 LAB BAS(LOINC) 0.0-2.5 % Basophil % 0.6 LAB ABLYM(LOIN 0.90-4.32 10 3/mcL C) Lymphocyte, 1.70 Absolute LAB MARCIA(LOINC 0.09-1.40 10 3/mcL ) Monocyte, 0.70 Absolute LAB AEOS(LOINC 0.00-0.65 10 3/mcL ) Eosinophil, 0.20 Absolute LAB ABAS(LOINC 0.00-0.27 10 3/mcL ) Basophil, 0.00 Absolute Performed By: #### VANCT, CBC, ADIFF, ANEU, GFR, BMP #### [address] [address] .NEUABS Collected: 11/17/2017 Status: F Source: [facility] 5:23 AM [facility] REPOSITORY TYPE CODE TESTS RESULT OUT OF REFERENCE UNITS RANGE LAB ANEU(LOINC) 2.25-8.10 10 3/mcL Neutrophil, 5.40 Absolute Performed By: #### VANCT, CBC, ADIFF, ANEU, GFR, BMP #### [address] [address] .GFR Collected: 11/17/2017 Status: F Source: [facility] 5:23 AM [facility] REPOSITORY TYPE CODE TESTS RESULT OUT OF REFERENCE UNITS RANGE LAB GFRAA(LOINC ml/min/1.73 ) sqm GFR >60 Scottish Result Comment: GFR Population mean for , Non- Americans Ages 20-29 = 116 mL/min/1.73 sq.m. Ages 30-39 = 107 mL/min/1.73 sq.m. Ages 40-49 = 99 mL/min/1.73 sq.m. Ages 50-59 = 93 mL/min/1.73 sq.m. Ages 60-69 = 85 mL/min/1.73 sq.m. Ages 70+ = 75 mL/min/1.73 sq.m. Chronic Kidney Disease: Less than 60 mL/min/1.73 square meters End Stage Renal Disease: Less than 15 mL/min/1.73 square meters LAB GFRNO(LOINC) ml/min/1.73sqm GFR Non- >60 Result Comment: GFR Population mean for , Non- Americans Ages 20-29 = 116 mL/min/1.73 sq.m. Ages 30-39 = 107 mL/min/1.73 sq.m. Ages 40-49 = 99 mL/min/1.73 sq.m. Ages 50-59 = 93 mL/min/1.73 sq.m. Ages 60-69 = 85 mL/min/1.73 sq.m. Ages 70+ = 75 mL/min/1.73 sq.m. Chronic Kidney Disease: Less than 60 mL/min/1.73 square meters End Stage Renal Disease: Less than 15 mL/min/1.73 square meters Performed By: #### VANCT, CBC, ADIFF, ANEU, GFR, BMP #### [place] [address] BMP Collected: 11/17/2017 Status: F Source: [facility] 5:23 AM [facility] REPOSITORY TYPE CODE TESTS RESULT OUT OF RANGE REFERENCE UNITS LAB GLU(LOINC) 82-115 mg/dL Low Glucose Level 81 LAB NA(LOINC) 136-145 mEq/L Sodium Level 144 LAB K(LOINC) 3.5-5.0 mEq/L Low Potassium Level 3.1 LAB CL(LOINC) 98-110 mEq/L Chloride 108 LAB CO2(LOINC) 22-32 mEq/L CO2 27 LAB EBAL(LOINC 4.0-15.0 mEq/L ) Electrolyte Balance 9.0 LAB BUN(LOINC) 8.0-22.0 mg/dL BUN 12.0 LAB CRE(LOINC) 0.50-1.20 mg/dL Low Creatinine Lvl (s) 0.43 LAB BC(LOINC) 10.0-22.0 ratio High BUN/Creatinine 27.9 Ratio LAB CA(LOINC) 8.4-10.1 mg/dL Calcium Lvl Abnormal 6.3 Alert Performed By: #### CHRISTELLET, CBC, ADIFF, ANEU, GFR, BMP #### [place] [address] VANCT Collected: 11/17/2017 Status: F Source: [facility] 2:12 AM [facility] REPOSITORY TYPE CODE TESTS RESULT OUT OF REFERENCE UNITS RANGE LAB LD019(LOIN C) LDose Vancomycin:(trou See eMAR gh) LAB VANT(LOINC 5.0-20.0 mcg/mL ) Vancomycin Tr 12.2 Performed By: #### VANCT, CBC, ADIFF, ANEU, GFR, BMP #### [place] [address] VANCT Collected: 11/15/2017 Status: F Source: [facility] 1:05 PM [facility] REPOSITORY TYPE CODE TESTS RESULT OUT OF REFERENCE UNITS RANGE LAB LD019(LOIN C) LDose Vancomycin:(trou Unknown gh) LAB VANT(LOINC 5.0-20.0 mcg/mL ) Low Vancomycin Tr 3.3 Performed By: #### VANCT #### [place] [address] CBC Collected: 11/15/2017 Status: F Source: [facility] 6:10 AM [facility] REPOSITORY TYPE CODE TESTS RESULT OUT OF REFERENCE UNITS RANGE LAB WBC(LOINC) 4.50-10.80 10 3/mcL WBC 7.50 LAB RBCCT(LOINC 4.10-5.30 10 6/mcL ) Low RBC 3.58 LAB HGB(LOINC) 12.0-16.0 G/dL Low Hgb 10.6 LAB HCT(LOINC) 34.0-46.0 % Low Hct 31.8 LAB MCV(LOINC) 80.0-99.0 fL MCV 88.8 LAB MCH(LOINC) 27.0-33.0 pg MCH 29.5 LAB MCHC(LOINC) 32.0-36.0 G/dL MCHC 33.2 LAB RDW(LOINC) 11.5-15.5 % RDW 14.7 LAB PLT(LOINC) 150-450 10 3/mcL High Platelet 488 LAB MPV(LOINC) 6.6-10.5 fL MPV 7.3 Performed By: #### CBC, DIFF, MORPH #### [place] [address] .MANUAL DIFF Collected: 11/15/2017 Status: F Source: [facility] 6:10 AM [facility] REPOSITORY TYPE CODE TESTS RESULT OUT OF REFERENCE UNITS RANGE LAB LIMIT(LOIN C) Cells Counted 100 LAB NEUM(LOINC 50.0-75.0 % ) Neutrophil %, Manual 70.0 LAB LYMM(LOINC 20.0-40.0 % ) Lymphocyte %, Low Manual 17.0 LAB MONM(LOINC 2.0-13.0 % ) Monocyte %, Manual 5.0 LAB EOM(LOINC) 0.0-6.0 % Eosinophil %, Manual 2.0 LAB BASM(LOINC 0.0-2.5 % ) Basophil %, Manual 0.0 LAB BAND(LOINC 0.0-5.0 % ) Bands 1.0 LAB META(LOINC % ) Metamyelocyte 3.0 LAB MYEL(LOINC % ) Myelocyte 2.0 LAB ANEUM(LOIN 2.25-8.10 10 3/mcL C) Neutrophil, Abs Manual 5.33 LAB ABLYMM(SAADIA 0.90-4.32 10 3/mcL NC) Lymphocyte, Abs Manual 1.27 LAB AMONM(LOIN 0.09-1.40 10 3/mcL C) Monocyte, Abs Manual 0.38 LAB AEOSM(LOIN 0.00-0.65 10 3/mcL C) Eosinophil, Abs Manual 0.15 LAB ABASM(LOIN 0.00-0.27 10 3/mcL C) Basophil, Abs Manual 0.00 Performed By: #### CBC, DIFF, MORPH #### [place] [address] .MORPH Collected: 11/15/2017 Status: F Source: [facility] 6:10 AM [facility] REPOSITORY TYPE CODE TESTS RESULT OUT OF REFERENCE UNITS RANGE LAB PLTE(LOINC ) Slt Platelet Increased Estimate LAB POLC(LOINC ) Polychrom Slight Performed By: #### CBC, DIFF, MORPH #### [place] [address] TABO Collected: 11/14/2017 Status: F Source: [facility] 2:46 PM [facility] REPOSITORY TYPE CODE TESTS RESULT OUT OF RANGE REFERENCE UNITS LAB ABORH(LOINC ) Unknown ABO/Rh A POS Interp Performed By: #### ABORH, ANTIS #### [place] [address] TABS Collected: 11/14/2017 Status: F Source: [facility] 2:46 PM [facility] REPOSITORY TYPE CODE TESTS RESULT OUT OF REFERENCE UNITS RANGE LAB ANST(LOINC ) Antibody Negative ABSC Screen Tango Performed By: #### ABORH, ANTIS #### [place] [address] RBC (PRODUCT) Collected: 11/14/2017 Status: F Source: [facility] 10:55 AM [facility] REPOSITORY TYPE CODE TESTS RESULT OUT OF REFERENCE UNITS RANGE LAB RBCPR(LOINC ) RBC Product RBC Ready Ready for Pickup Performed By: #### RBCP #### [place] [address] Observed: 11/13/2017 Status: F Source: [facility] CWDP 9:42 [facility] REPOSITORY . MICRO - Microbiology PROCEDURE: Culture Wound Deep Aerobe/Anaerobe w Gram Stain [*1] SOURCE: Wound (deep) BODY SITE: Abdominal Wall COLLECTED DATE/TIME: 11/13/2017 09:42 EDT RECEIVED DATE/TIME: 11/13/2017 09:53 EDT START DATE/TIME: 11/13/2017 09:53 EDT FREE TEXT SOURCE: FINAL REPORTS Final Report [] Verified Date/Time/Personnel: 11/17/2017 11:24 EDT Light Morganella morganii Light Proteus vulgaris Light normal skin adriel present Sensitivity testing not indicated. No anaerobes isolated at 96 hours. PRELIMINARY REPORTS Preliminary Report [] Verified Date/Time/Personnel: 11/16/2017 08:33 EDT Light Morganella morganii Light Proteus vulgaris Light normal skin adriel present Sensitivity testing not indicated. Preliminary Report [] Verified Date/Time/Personnel: 11/15/2017 11:22 EDT Light Gram Negative Rods Final identification and REID to follow. Light Gram Negative Rods #2 Final identification and REID to follow. Light normal skin adriel present Sensitivity testing not indicated. Preliminary Report [] Verified Date/Time/Personnel: 11/14/2017 15:23 EDT Culture results pending. STAINS GS [] Verified Date/Time/Personnel: 11/13/2017 12:47 EDT Rare Mononuclear cells Rare Gram Negative Rods Rare Gram Positive Cocci SUSCEPTIBILITY RESULTS Morganella morganii Antibiotic REID Dilutn REID Interp Amoxicillin/ >16/8 Resistant Clavulanate Ampicillin >16 Resistant Cefazolin >16 Resistant Cefotaxime <=2 Susceptible Cefuroxime 16 Resistant Ciprofloxacin <=1 Susceptible Gentamicin <=4 Susceptible Levofloxacin <=2 Susceptible Meropenem <=1 Susceptible Piperacillin/ <=16 Susceptible Tazobactam Trimethoprim/ <=2/38 Susceptible Sulfa MICRO - Microbiology SUSCEPTIBILITY RESULTS Proteus vulgaris Antibiotic REID Dilutn REID Interp Amoxicillin/ <=8/4 Susceptible Clavulanate Ampicillin >16 Resistant Cefazolin >16 Resistant Cefotaxime <=2 Susceptible Cefuroxime >16 Resistant Ciprofloxacin <=1 Susceptible Gentamicin <=4 Susceptible Levofloxacin <=2 Susceptible Meropenem <=1 Susceptible Piperacillin/ <=16 Susceptible Tazobactam Trimethoprim/ <=2/38 Susceptible Sulfa Performing Locations *1: This test was performed at: [facility] [place], [address] [place] [address], [facility]- , [facility] Performed By: #### CWDP #### [address] [address] CBC Collected: 11/13/2017 Status: F Source: [facility] 6:56 AM [facility] REPOSITORY TYPE CODE TESTS RESULT OUT OF REFERENCE UNITS RANGE LAB WBC(LOINC) 4.50-10.80 10 3/mcL WBC 8.90 LAB RBCCT(LOINC 4.10-5.30 10 6/mcL ) Low RBC 2.52 LAB HGB(LOINC) 12.0-16.0 G/dL Low Hgb 7.7 LAB HCT(LOINC) 34.0-46.0 % Low Hct 22.8 LAB MCV(LOINC) 80.0-99.0 fL MCV 90.6 LAB MCH(LOINC) 27.0-33.0 pg MCH 30.6 LAB MCHC(LOINC) 32.0-36.0 G/dL MCHC 33.8 LAB RDW(LOINC) 11.5-15.5 % RDW 14.0 LAB PLT(LOINC) 150-450 10 3/mcL High Platelet 512 LAB MPV(LOINC) 6.6-10.5 fL MPV 7.6 Performed By: #### CBCSHIRIN, SÁNCHEZ #### [place] [address] .AUTO DIFF Collected: 11/13/2017 Status: F Source: [facility] 6:56 AM [facility] REPOSITORY TYPE CODE TESTS RESULT OUT OF REFERENCE UNITS RANGE LAB SHWETA(LOINC) 50.0-75.0 % Neutrophil % 71.0 LAB LYM(LOINC) 20.0-40.0 % Low Lymphocyte % 19.6 LAB MON(LOINC) 2.0-13.0 % Monocyte % 7.5 LAB EO(LOINC) 0.0-6.0 % Eosinophil % 1.2 LAB BAS(LOINC) 0.0-2.5 % Basophil % 0.7 LAB ABLYM(LOIN 0.90-4.32 10 3/mcL C) Lymphocyte, 1.80 Absolute LAB MARCIA(LOINC 0.09-1.40 10 3/mcL ) Monocyte, 0.70 Absolute LAB AEOS(LOINC 0.00-0.65 10 3/mcL ) Eosinophil, 0.10 Absolute LAB ABAS(LOINC 0.00-0.27 10 3/mcL ) Basophil, 0.10 Absolute Performed By: #### CBC, ADSTELLA, ANEU #### [address] [address] .NEUABS Collected: 11/13/2017 Status: F Source: [facility] 6:56 AM [facility] REPOSITORY TYPE CODE TESTS RESULT OUT OF REFERENCE UNITS RANGE LAB ANEU(LOINC) 2.25-8.10 10 3/mcL Neutrophil, 6.30 Absolute Performed By: #### CBC, SHIRIN, ANEU #### [address] [address] CBC Collected: 11/09/2017 Status: F Source: [facility] 2:47 PM [facility] REPOSITORY TYPE CODE TESTS RESULT OUT OF REFERENCE UNITS RANGE LAB WBC(LOINC) 4.50-10.80 10 3/mcL WBC 10.70 LAB RBCCT(LOINC 4.10-5.30 10 6/mcL ) Low RBC 2.75 LAB HGB(LOINC) 12.0-16.0 G/dL Low Hgb 8.3 LAB HCT(LOINC) 34.0-46.0 % Low Hct 25.2 LAB MCV(LOINC) 80.0-99.0 fL MCV 91.6 LAB MCH(LOINC) 27.0-33.0 pg MCH 30.3 LAB MCHC(LOINC) 32.0-36.0 G/dL MCHC 33.1 LAB RDW(LOINC) 11.5-15.5 % RDW 13.9 LAB PLT(LOINC) 150-450 10 3/mcL High Platelet 550 LAB MPV(LOINC) 6.6-10.5 fL MPV 7.2 Performed By: #### CBC, ADIFF, ANEU, MG, PHOS, T4, FERR, FOL, TSH, FES, CMP, GFR, B12, T3, PRALB #### [address] [address] .AUTO DIFF Collected: 11/09/2017 Status: F Source: [facility] 2:47 [facility] [place] REPOSITORY TYPE CODE TESTS RESULT OUT OF REFERENCE UNITS RANGE LAB SHWETA(LOINC) 50.0-75.0 % Neutrophil % 71.1 LAB LYM(LOINC) 20.0-40.0 % Low Lymphocyte % 19.7 LAB MON(LOINC) 2.0-13.0 % Monocyte % 7.6 LAB EO(LOINC) 0.0-6.0 % Eosinophil % 0.8 LAB BAS(LOINC) 0.0-2.5 % Basophil % 0.8 LAB ABLYM(LOIN 0.90-4.32 10 3/mcL C) Lymphocyte, 2.10 Absolute LAB MARCIA(LOINC 0.09-1.40 10 3/mcL ) Monocyte, 0.80 Absolute LAB AEOS(LOINC 0.00-0.65 10 3/mcL ) Eosinophil, 0.10 Absolute LAB ABAS(LOINC 0.00-0.27 10 3/mcL ) Basophil, 0.10 Absolute Performed By: #### CBC, ADIFF, ANEU, MG, PHOS, T4, FERR, FOL, TSH, FES, CMP, GFR, B12, T3, PRALB #### [place] [id number] .NEUABS Collected: 11/09/2017 Status: F Source: [facility] 2:47 [facility], [place] REPOSITORY TYPE CODE TESTS RESULT OUT OF REFERENCE UNITS RANGE LAB ANEU(LOINC) 2.25-8.10 10 3/mcL Neutrophil, 7.60 Absolute Performed By: #### CBC, ADIFF, ANEU, MG, PHOS, T4, FERR, FOL, TSH, FES, CMP, GFR, B12, T3, PRALB #### [place] [address] MG Collected: 11/09/2017 Status: F Source: [facility] 2:47 [facility], [place] REPOSITORY TYPE CODE TESTS RESULT OUT OF REFERENCE UNITS RANGE LAB MG(LOINC) 1.6-2.4 mg/dL Magnesium Lvl 2.1 Performed By: #### CBC, ADIFF, ANEU, MG, PHOS, T4, FERR, FOL, TSH, FES, CMP, GFR, B12, T3, PRALB #### [place] [address] PHOS Collected: 11/09/2017 Status: F Source: [facility] 2:47 PM [facility] REPOSITORY TYPE CODE TESTS RESULT OUT OF REFERENCE UNITS RANGE LAB PHOS(LOINC 2.5-4.5 mg/dL ) Phosphorus 4.1 Performed By: #### CBC, ADIFF, ANEU, MG, PHOS, T4, FERR, FOL, TSH, FES, CMP, GFR, B12, T3, PRALB #### [place] [address] T4 Collected: 11/09/2017 Status: F Source: [facility] 2:47 [facility], [place] REPOSITORY TYPE CODE TESTS RESULT OUT OF RANGE REFERENCE UNITS LAB T4(LOINC) 4.7-11.4 mcg/dL T4 7.4 Result Comment: Please note as of 09/01/16 new pediatric reference intervals were added for this test. Performed By: #### CBC, ADIFF, ANEU, MG, PHOS, T4, FERR, FOL, TSH, FES, CMP, GFR, B12, T3, PRALB #### [place] [address] FERR Collected: 11/09/2017 Status: F Source: [place] [id number] [place] [address] REPOSITORY TYPE CODE TESTS RESULT OUT OF REFERENCE UNITS RANGE LAB FERR(LOINC) 8-252 ng/mL Ferritin 184 Performed By: #### CBC, ADIFF, ANEU, MG, PHOS, T4, FERR, FOL, TSH, FES, CMP, GFR, B12, T3, PRALB #### [place] [address] FOL Collected: 11/09/2017 Status: F Source: [facility] 2:[address] [place] [address] REPOSITORY TYPE CODE TESTS RESULT OUT OF REFERENCE UNITS RANGE LAB FOL(LOINC) 1.1-20.0 ng/mL Folate 15.1 Performed By: #### CBC, ADIFF, ANEU, MG, PHOS, T4, FERR, FOL, TSH, FES, CMP, GFR, B12, T3, PRALB #### [place] [address] TSH Collected: 11/09/2017 Status: F Source: [facility] 2:[address] [place] [address] REPOSITORY TYPE CODE TESTS RESULT OUT OF RANGE REFERENCE UNITS LAB TSH(LOINC) 0.360-3.740 mcIU/mL TSH 2.730 Result Comment: Please note as of 09/01/16 new pediatric reference intervals were added for this test. Performed By: #### CBC, ADIFF, ANEU, MG, PHOS, T4, FERR, FOL, TSH, FES, CMP, GFR, B12, T3, PRALB #### [place] [address] FES Collected: 11/09/2017 Status: F Source: [facility] 2:47 PM [facility] REPOSITORY TYPE CODE TESTS RESULT OUT OF RANGE REFERENCE UNITS LAB FE(LOINC) 37-170 mcg/dL Low Iron 14 LAB IBC(LOINC) 250-500 mcg/dL Low TIBC 162 LAB FESAT(LOINC % ) Iron Sat 9 Performed By: #### CBC, ADIFF, ANEU, MG, PHOS, T4, FERR, FOL, TSH, FES, CMP, GFR, B12, T3, PRALB #### [place] [address] CMP Collected: 11/09/2017 Status: F Source: [facility] 2:47 [facility] [place] REPOSITORY TYPE CODE TESTS RESULT OUT OF REFERENCE UNITS RANGE LAB GLU(LOINC) 82-115 mg/dL Glucose High Level 219 LAB NA(LOINC) 136-145 mEq/L Low Sodium Level 135 LAB K(LOINC) 3.5-5.0 mEq/L Potassium Level 4.4 LAB CL(LOINC) 98-110 mEq/L Chloride 99 LAB CO2(LOINC) 22-32 mEq/L CO2 26 LAB EBAL(LOINC 4.0-15.0 mEq/L ) Electrolyte Balance 10.0 LAB BUN(LOINC) 8.0-22.0 mg/dL BUN 9.0 LAB CRE(LOINC) 0.50-1.20 mg/dL Creatinine Lvl (s) 0.55 LAB BC(LOINC) 10.0-22.0 ratio BUN/Creatinine 16.4 Ratio LAB CA(LOINC) 8.4-10.1 mg/dL Low Calcium Lvl 7.2 LAB PROT(LOINC 6.0-8.5 G/dL ) Low Total Protein 4.5 LAB ALB(LOINC) 3.2-4.8 G/dL Low Albumin Level 1.3 LAB GLB(LOINC) 1.5-3.8 G/dL Globulin 3.2 LAB AG(LOINC) 0.9-1.6 ratio Low A/G Ratio 0.4 LAB BILT(LOINC 0.2-1.2 mg/dL ) Bili Total 0.2 LAB AP(LOINC) 38-126 U/L Alk Phos 78 LAB AST(LOINC) 8-34 U/L AST/SGOT 12 LAB ALT(LOINC) 10-49 U/L ALT/SGPT 12 Performed By: #### CBC, ADIFF, ANEU, MG, PHOS, T4, FERR, FOL, TSH, FES, CMP, GFR, B12, T3, PRALB #### [place] [address] .GFR Collected: 11/09/2017 Status: F Source: [facility] 2:47 PM [facility] REPOSITORY TYPE CODE TESTS RESULT OUT OF REFERENCE UNITS RANGE LAB GFRAA(LOINC ml/min/1.73 ) sqm GFR >60 Scottish Result Comment: GFR Population mean for , Non- Americans Ages 20-29 = 116 mL/min/1.73 sq.m. Ages 30-39 = 107 mL/min/1.73 sq.m. Ages 40-49 = 99 mL/min/1.73 sq.m. Ages 50-59 = 93 mL/min/1.73 sq.m. Ages 60-69 = 85 mL/min/1.73 sq.m. Ages 70+ = 75 mL/min/1.73 sq.m. Chronic Kidney Disease: Less than 60 mL/min/1.73 square meters End Stage Renal Disease: Less than 15 mL/min/1.73 square meters LAB GFRNO(LOINC) ml/min/1.73sqm GFR Non- >60 Result Comment: GFR Population mean for , Non- Americans Ages 20-29 = 116 mL/min/1.73 sq.m. Ages 30-39 = 107 mL/min/1.73 sq.m. Ages 40-49 = 99 mL/min/1.73 sq.m. Ages 50-59 = 93 mL/min/1.73 sq.m. Ages 60-69 = 85 mL/min/1.73 sq.m. Ages 70+ = 75 mL/min/1.73 sq.m. Chronic Kidney Disease: Less than 60 mL/min/1.73 square meters End Stage Renal Disease: Less than 15 mL/min/1.73 square meters Performed By: #### CBC, ADIFF, ANEU, MG, PHOS, T4, FERR, FOL, TSH, FES, CMP, GFR, B12, T3, PRALB #### [place] [address] B12 Collected: 11/09/2017 Status: F Source: [facility] 2:47 PM [facility] REPOSITORY TYPE CODE TESTS RESULT OUT OF REFERENCE UNITS RANGE LAB B12(LOINC) 211-911 pg/mL High Vitamin B12 1326 Lvl Performed By: #### CBC, ADIFF, ANEU, MG, PHOS, T4, FERR, FOL, TSH, FES, CMP, GFR, B12, T3, PRALB #### [place] [address] T3 Collected: 11/09/2017 Status: F Source: [facility] 2:47 PM [facility] REPOSITORY TYPE CODE TESTS RESULT OUT OF RANGE REFERENCE UNITS LAB T3(LOINC) 60-181 ng/dL Total T3 62 Result Comment: Please note ? as of 09/01/16 new pediatric reference intervals were added for this test. Performed By: #### CBC, ADIFF, ANEU, MG, PHOS, T4, FERR, FOL, TSH, FES, CMP, GFR, B12, T3, PRALB #### [place] [address] PRALB Collected: 11/09/2017 Status: F Source: [facility] 2:47 PM [facility] REPOSITORY TYPE CODE TESTS RESULT OUT OF REFERENCE UNITS RANGE LAB PRALB(LOIN 18.0-38.0 mg/dL C) Low Prealbumin 10.6 Performed By: #### CBC, ADIFF, ANEU, MG, PHOS, T4, FERR, FOL, TSH, FES, CMP, GFR, B12, T3, PRALB #### [place] [address] Observed: 11/09/2017 Status: F Source: [facility] 2:47 PM [facility] REPOSITORY . MICRO - Microbiology PROCEDURE: MRSA PCR [*1] SOURCE: Jane BODY SITE: COLLECTED DATE/TIME: 11/09/2017 14:47 EDT RECEIVED DATE/TIME: 11/09/2017 14:58 EDT START DATE/TIME: 11/09/2017 14:58 EDT FREE TEXT SOURCE: FINAL REPORTS Final Report [] Verified Date/Time/Personnel: 11/09/2017 22:42 EDT MRSA NEGATIVE. MRSA DNA not detected by Real-Time Polymerase Chain Reaction (PCR). A negative result may be due to intermittent colonization. Colonization may vary depending on patient treatment, patient status or exposure to high risk environments. As with all PCR based in vitro tests, extremely low levels of target below the limit of detection of the assay may be detected, but results may not be reproducible. Performing Locations *1: This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 EXAMINATION: 71-year-old moderately obese female in no acute distress BP 138/78 Pulse 68 Temp (Src) 98.6 (Temporal Artery) Wt 228 lb (103.4kg) HEENT: Head is normocephalic, atraumatic. Sclerae white, conjunctivae pink. PEERL. EOMs are intact. Oropharynx is benign. LYMPHATICS: There is no palpable adenopathy in the neck, supraclavicular region, axillae, or groin. BREASTS: Without skin dimpling, nipple discharge or masses. LUNGS: Lungs are clear to percussion and auscultation. HEART: Heart is normal without murmurs, gallops, or rubs. ABDOMEN: Obese, Soft and nontender without organomegaly. No masses can be palpated. EXTREMITIES: Are without edema. NEUROLOGIC: Exam is physiologic ? LABORATORY DATA: Component Latest Ref Rng AND Units 08/06/2017 Albumin 3.9 - 4.9 g/dL 4.2 Bilirubin, Total 0.2 - 1.3 mg/dL 0.4 Bilirubin, Conjug <0.2 mg/dL <0.2 Alkaline Phosphatase 32 - 117 U/L 42 AST 13 - 35 U/L 31 ALT 7 - 38 U/L 45 (H) Protein, Total 6.3 - 8.0 g/dL 6.8 US liver: ? ASSESSMENT: ?71-year-old female with an abnormal CT scan of chest. Patient has a family history of cancer, with multiple cystic lesions?throughout the liver. She is asymptomatic, liver function on ultrasound liver is unchanged.?No indications of malignancy or liver metastasis. PLAN: - check hepatitis C antibody and follow-up with PCP. - I will call her to confirm her ultrasound results. Kash Shook MD Cc: Dr. Ye Bills PROGRESS Observed: 08/06/2017 Status: COMPLETED Source: [place] 10:47 AM [facility] REPOSITORY HNO ID: [id number] Author: Angelica Saldaña Service: (none) Author Type: Roll Over Loader Type: Progress Notes Filed: 08/06/2017 10:47 AM Note Text: Radiology Service Progress Note PATIENT NAME: Demetra Whitaker DATE OF SERVICE: August 06, 2017 TIME: 10:47 AM PATIENT IDENTITY VERIFICATION COMPLETED USING TWO (2) METHODS: Patient confirmed name verbally and Date of . PATIENT GENDER DATA: Female. status: : No status: N/A PATIENT RELEVANT IMPLANT DATA REVIEWED: Not Applicable RADIOLOGY DEPARTMENT: Ultrasound RUQ ABD PERIPHERAL IV DATA: Not applicable SIGNED BY: ANGELICA SALDAÑA RDMS RVBruce August 06, 2017 10:47 AM US ABD RIGHT UPPER Observed: 08/06/2017 Status: F Source: [facility] 10:42 AM [facility] REPOSITORY * * *Final Report* * * DATE OF EXAM: Aug 06 2017 10:42AM U 1032 - US ABD RIGHT UPPER QUADRANT / PROCEDURE REASON: Cystic disease of liver * * * * Physician Interpretation * * * * EXAMINATION: RIGHT UPPER QUADRANT ULTRASOUND HISTORY: Cystic disease of liver TECHNIQUE: Sonography of the right upper quadrant was performed. Images were obtained and stored in a permanent archive. MQ: URUQ_1 COMPARISON: CT liver and sure she was spontaneity since she got one in the abdomen. The lateral radiograph 17 is 05/08/2017 RESULT: Pancreas: Pancreas not well seen due to overlying bowel gas. Liver: Echotexture: Echogenicity: Heterogeneous Surface contour: Smooth Lesions: Multiple simple and complex cystic lesions throughout the liver the largest one measures 5.3 cm in size is in the RIGHT lobe of the liver. Biliary: No intrahepatic bile duct dilatation CBD: Normal in size at the hilum. Gallbladder: Unremarkable. . -Contents: Stone in the neck of the gallbladder which is never seen to move. -Wall: No gallbladder wall thickening -Other: No pericholecystic edema Right Kidney: Grossly unremarkable Ascites: No ascites is seen IMPRESSION: 1. Fatty liver. 2. Multiple simple and complex cysts in the liver 3. Cannot be certain that the area of concern in the dome of the liver was seen on the ultrasound. Follow-up CT liver is suggested in 6 months 4. There is a stone in the neck of the gallbladder. It is never seen to move with changing positions 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: MYRON Transcribe Date/Time: Aug 08 2017 8:23A Dictated by : SADIA SEGAL DO This examination was interpreted and the report reviewed and electronically signed by: SADIA SEGAL DO on Aug 08 2017 1:48PM EST [id number] HEPATIC FUNCTN PANEL Collected: 08/06/2017 Status: F Source: [place] 10:35 AM [facility] REPOSITORY TYPE CODE TESTS RESULT OUT OF REFERENCE UNITS RANGE LAB ALB 3.9-4.9 g/dL Albumin 4.2 LAB TBIL 0.2-1.3 mg/dL Bilirubin, Total 0.4 LAB CBIL <0.2 mg/dL Bilirubin,Conjuga <0.2 leeroy LAB ALKP 32-117 U/L Alkaline Phosphatase 42 LAB AST 13-35 U/L AST 31 LAB ALT 7-38 U/L ALT High 45 LAB TP 6.3-8.0 g/dL Protein, Total 6.8 Performed By: #### HFP #### [facility] [address] [place], [place] [address] CNOVSP Observed: 05/09/2017 Status: COMPLETED Source: [place] 4:00 PM [facility] REPOSITORY Visit (SP) Office ([place]) DEMETRA WHITAKER I ([id number]) 1945 F Date Time Provider Department 05/09/17 4:00 PM KASH SHOOK During your visit today, we recorded the following information about you: Temperature Pulse Blood pressure Weight 98.4 degrees 62/minute 132/60 104.3 kg Greta Jaimes LPN, LPN 05/09/2017 2:49 PM Signed Est pt, , discuss recent ct Results MOY Phipps MD 05/10/2017 7:45 AM Signed PATIENT NAME: Demetra Whitaker. CLINIC NO: [id number]. ATTENDING PHYSICIAN: Kash Shook MD. DATE OF SERVICE:05/02/2017. ? DIAGNOSIS: Cystic liver lesions ? ? 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 Patient has no shortness of breath, nausea, vomiting or diaphoresis with her pain. She arrived to the emergency room for further evaluation of her chest pain. Her EKG was normal, cardiac enzymes were negative. She had a 2-D echocardiogram which showed normal left ventricular size and function with an EF of 55-60%. She also had a nuclear stress test which was negative for inducible ischemia. A CT scan of the chest show no evidence of pulmonary embolus, however there were multiple numerous cystic lesions throughout the liver. there are various mottled attenuation of the vertebral body no lytic or blastic lesions of the bone. She also deny history of bone pain or pathologic fractures. ? she had bilateral mammogram screening earlier this year which was normal. Also had a screening colonoscopy last year with Dr. Ye Reddy and it was reported to be normal. Patient denies significant weight change, anorexia, or change in bowel habit. She has no abdominal pain or bloating, no evidence of jaundice or change in her appetite. Patient has no urinary symptoms, dysuria or hematuria. Previous surgeries include appendectomy and tonsillectomy. She does not smoke, or drink, and no drug use. 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 She has family history of colon cancer, breast cancer, and lymphoma. She has a daughter with thyroid cancer. No family history of heart disease. interim history: Patient return after a CT scan of the abdomen and pelvis. She has no new complaints including abdominal pain, bloating or jaundice. she has no fever, chills, night sweats or weight loss. All medications ANDamp; allergies updated and reviewed by me. REVIEW OF SYSTEMS: ? CONSTITUTIONAL: No fevers, chills, nightsweats, unintended weight loss HEENT: Denies frequent or severe heaches, nasal congestion/sinus symptoms, problematic allergy problems. EYES: No diplopia or blurry vision. CARDIOVASCULAR: No chest pain, dyspnea, palpitations, orthopnea, PND, ankle edema. PULM: No dyspnea, unexplained cough. GI: No dysphagia/odynophagia, problematic reflux, constipation, diarrhea, changes in stool habits, hematochezia, melena. : No new urinary complaints, including dysuria, gross hematuria or pyuria. NEURO: No new balance problems, peripheral weakness/paresthesias or numbness of concern. MUSC-SKEL: No new joint pain, swelling, or erythema. PSY: No concerns regarding depression, anxiety or panic. INTEGUMENTARY: No new skin changes (rash, new or changing mole, new growth) ? PHYSICAL EXAMINATION: 71-year-old moderately obese female in no acute distress BP 132/60 Pulse 62 Temp 98.4 Wt 230 lb (104.3kg) HEENT: Head is normocephalic, atraumatic. Sclerae white, conjunctivae pink. PEERL. EOMs are intact. Oropharynx is benign. LYMPHATICS: There is no palpable adenopathy in the neck, supraclavicular region, axillae, or groin. BREASTS: Without skin dimpling, nipple discharge or masses. LUNGS: Lungs are clear to percussion and auscultation. HEART: Heart is normal without murmurs, gallops, or rubs. ABDOMEN: Obese, Soft and nontender without organomegaly. No masses can be palpated. EXTREMITIES: Are without edema. NEUROLOGIC: Exam is physiologic ? LABORATORY DATA: Component Latest Ref Rng ANDamp; Units 05/02/2017 WBC, [place] 3.70 - 11.00 k/uL 7.24 RBC, [place] 3.90 - 5.20 m/uL 4.25 Hemoglobin, [place] 11.5 - 15.5 g/dL 13.4 Hematocrit, [place] 36.0 - 46.0 % 40.9 MCV, [place] 80.0 - 100.0 fL 96.2 MCH, [place] 26.0 - 34.0 pg 31.5 MCHC, [place] 30.5 - 36.0 g/dL 32.8 RDW, [place] 11.5 - 15.0 % 12.1 Platelet Cnt, [place] 150 - 400 k/uL 217 MPV, [place] 9.0 - 12.7 fL 11.7 Absol Gran Count 1.45 - 7.50 k/uL 4.47 Component Latest Ref Rng ANDamp; Units 05/02/2017 Protein, Total 6.3 - 8.0 g/dL 7.7 Albumin 3.9 - 4.9 g/dL 4.3 Calcium 8.5 - 10.2 mg/dL 9.5 Bilirubin, Total 0.2 - 1.3 mg/dL 0.2 Alkaline Phosphatase 32 - 117 U/L 46 AST 13 - 35 U/L 29 Glucose 74 - 99 mg/dL 155 (H) BUN 7 - 21 mg/dL 15 Creatinine 0.58 - 0.96 mg/dL 0.88 Sodium 136 - 144 mmol/L 142 Potassium 3.7 - 5.1 mmol/L 4.6 Chloride 97 - 105 mmol/L 99 CO2 22 - 30 mmol/L 30 Anion Gap 9 - 18 mmol/L 13 ALT 7 - 38 U/L 36 eGFR- ANDgt;60 eGFR-All Other Races . ANDgt;60 PT Sec 9.7 - 13.0 sec 10.9 PT INR 0.9 - 1.3 1.1 APTT 23.0 - 32.[address] abdomen and pelvis: No previous CT scan for comparison. IMPRESSION: 1. ?There are multiple thin-walled fluid attenuation structures in the liver which most likely represent cysts. ?Cystic metastases are less likely. 2. ?There is a uniformly hypodense structure in the lateral right dome of the liver image 17, series 7 which could represent a complex cyst or hypovascular mass. ?This could be further evaluated by MRI of the liver or ultrasound examination. ASSESSMENT: 71-year-old female with an abnormal CT scan of chest. Patient has a family history of cancer, with multiple cystic lesions throughout the liver. The appearance on CT scan suggests cystic lesions of the liver, cystic metastasis are less likely. She is up-to-date with her colonoscopy and mammogram screening for colorectal and breast cancer. ? PLAN: 1) We discussed a CT needle biopsy and aspiration of the cystic lesion of her liver for evaluation of malignancy versus continued observation and follow-up ultrasound in 3 months to further evaluate her liver lesions. Since she is totally asymptomatic and up-to-date with all her cancer screening, the patient agrees to wait 3 months and repeat her ultrasound of the liver. 2) repeat liver function and ultrasound liver OV in 3 months Kash Shook MD Cc: Dr. Raleigh Bills Referring Provider: KASH SHOOK [[id number]] Allergies As of Date: 05/09/2017 (No Known Allergies) Date Reviewed: 05/09/2017 Reviewed by: Greta Rosario) MOY Jaimes - Fully Assessed Reason for Visit: Established Patient [175] Primary Visit Diagnosis: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] Order(s):US ABD RT UPPER QUADRANT [[id number]] Order #: [id number] FUTURE Level of Service: EST PATIENT VISIT LEVEL 3 [47314] Disposition: Return in about 3 months (around 08/09/2017). Follow-up and Disposition History Recorded Prescriptions as of 05/09/2017 Sig: HYDROCHLOROTHIAZIDE 25 MG TAB* Take 25 mg by mouth once shaw* LEVOTHYROXINE 100 MCG TABLET Take 100 mcg by mouth once da* OMEGA 2-TYC-BIP-FISH OIL 1,00* Take 2 g by mouth twice daily. MULTIVITAMIN TABLET Take one(1) tablet daily. Problem List As Of Date 05/09/2017 Noted Resolved Simple goiter [E04.0] INVALID FOR* 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] INVALID FOR* Visit Notes: >> Greta Jaimes LPN [facility] May 09, 2017 2:34 PM Status: Signed Est pt, , discuss recent ct Results Greta Jaimes LPN Encounter Status:Closed by KASH SHOOK MD on 05/10/17 PROGRESS Observed: 05/09/2017 Status: COMPLETED Source: [place] 3:16 PM [facility] REPOSITORY O ID: [id number] Author: Kash Shook Service: (none) Author Type: Physician Type: Progress Notes Filed: 05/10/2017 7:45 AM Note Text: PATIENT NAME: Demetra Whitaker. CLINIC NO: [id number]. ATTENDING PHYSICIAN: Kash Shook MD. DATE OF SERVICE:05/02/2017. ? DIAGNOSIS: Cystic liver lesions ? ? 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 Patient has no shortness of breath, nausea, vomiting or diaphoresis with her pain. She arrived to the emergency room for further evaluation of her chest pain. Her EKG was normal, cardiac enzymes were negative. She had a 2-D echocardiogram which showed normal left ventricular size and function with an EF of 55-60%. She also had a nuclear stress test which was negative for inducible ischemia. A CT scan of the chest show no evidence of pulmonary embolus, however there were multiple numerous cystic lesions throughout the liver. there are various mottled attenuation of the vertebral body no lytic or blastic lesions of the bone. She also deny history of bone pain or pathologic fractures. ? she had bilateral mammogram screening earlier this year which was normal. Also had a screening colonoscopy last year with Dr. Ye Reddy and it was reported to be normal. Patient denies significant weight change, anorexia, or change in bowel habit. She has no abdominal pain or bloating, no evidence of jaundice or change in her appetite. Patient has no urinary symptoms, dysuria or hematuria. Previous surgeries include appendectomy and tonsillectomy. She does not smoke, or drink, and no drug use. 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 She has family history of colon cancer, breast cancer, and lymphoma. She has a daughter with thyroid cancer. No family history of heart disease. interim history: Patient return after a CT scan of the abdomen and pelvis. She has no new complaints including abdominal pain, bloating or jaundice. she has no fever, chills, night sweats or weight loss. All medications AND allergies updated and reviewed by me. REVIEW OF SYSTEMS: ? CONSTITUTIONAL: No fevers, chills, nightsweats, unintended weight loss HEENT: Denies frequent or severe heaches, nasal congestion/sinus symptoms, problematic allergy problems. EYES: No diplopia or blurry vision. CARDIOVASCULAR: No chest pain, dyspnea, palpitations, orthopnea, PND, ankle edema. PULM: No dyspnea, unexplained cough. GI: No dysphagia/odynophagia, problematic reflux, constipation, diarrhea, changes in stool habits, hematochezia, melena. : No new urinary complaints, including dysuria, gross hematuria or pyuria. NEURO: No new balance problems, peripheral weakness/paresthesias or numbness of concern. MUSC-SKEL: No new joint pain, swelling, or erythema. PSY: No concerns regarding depression, anxiety or panic. INTEGUMENTARY: No new skin changes (rash, new or changing mole, new growth) ? PHYSICAL EXAMINATION: 71-year-old moderately obese female in no acute distress BP 132/60 Pulse 62 Temp 98.4 Wt 230 lb (104.3kg) HEENT: Head is normocephalic, atraumatic. Sclerae white, conjunctivae pink. PEERL. EOMs are intact. Oropharynx is benign. LYMPHATICS: There is no palpable adenopathy in the neck, supraclavicular region, axillae, or groin. BREASTS: Without skin dimpling, nipple discharge or masses. LUNGS: Lungs are clear to percussion and auscultation. HEART: Heart is normal without murmurs, gallops, or rubs. ABDOMEN: Obese, Soft and nontender without organomegaly. No masses can be palpated. EXTREMITIES: Are without edema. NEUROLOGIC: Exam is physiologic ? LABORATORY DATA: Component Latest Ref Rng AND Units 05/02/2017 WBC, [place] 3.70 - 11.00 k/uL 7.24 RBC, [place] 3.90 - 5.20 m/uL 4.25 Hemoglobin, [place] 11.5 - 15.5 g/dL 13.4 Hematocrit, [place] 36.0 - 46.0 % 40.9 MCV, [place] 80.0 - 100.0 fL 96.2 MCH, [place] 26.0 - 34.0 pg 31.5 MCHC, [place] 30.5 - 36.0 g/dL 32.8 RDW, [place] 11.5 - 15.0 % 12.1 Platelet Cnt, [place] 150 - 400 k/uL 217 MPV, [place] 9.0 - 12.7 fL 11.7 Absol Gran Count 1.45 - 7.50 k/uL 4.47 Component Latest Ref Rng AND Units 05/02/2017 Protein, Total 6.3 - 8.0 g/dL 7.7 Albumin 3.9 - 4.9 g/dL 4.3 Calcium 8.5 - 10.2 mg/dL 9.5 Bilirubin, Total 0.2 - 1.3 mg/dL 0.2 Alkaline Phosphatase 32 - 117 U/L 46 AST 13 - 35 U/L 29 Glucose 74 - 99 mg/dL 155 (H) BUN 7 - 21 mg/dL 15 Creatinine 0.58 - 0.96 mg/dL 0.88 Sodium 136 - 144 mmol/L 142 Potassium 3.7 - 5.1 mmol/L 4.6 Chloride 97 - 105 mmol/L 99 CO2 22 - 30 mmol/L 30 Anion Gap 9 - 18 mmol/L 13 ALT 7 - 38 U/L 36 eGFR- >60 eGFR-All Other Races . >60 PT Sec 9.7 - 13.0 sec 10.9 PT INR 0.9 - 1.3 1.1 APTT 23.0 - 32.[address] abdomen and pelvis: No previous CT scan for comparison. IMPRESSION: 1. ?There are multiple thin-walled fluid attenuation structures in the liver which most likely represent cysts. ?Cystic metastases are less likely. 2. ?There is a uniformly hypodense structure in the lateral right dome of the liver image 17, series 7 which could represent a complex cyst or hypovascular mass. ?This could be further evaluated by MRI of the liver or ultrasound examination. ASSESSMENT: 71-year-old female with an abnormal CT scan of chest. Patient has a family history of cancer, with multiple cystic lesions throughout the liver. The appearance on CT scan suggests cystic lesions of the liver, cystic metastasis are less likely. She is up-to-date with her colonoscopy and mammogram screening for colorectal and breast cancer. ? PLAN: 1) We discussed a CT needle biopsy and aspiration of the cystic lesion of her liver for evaluation of malignancy versus continued observation and follow-up ultrasound in 3 months to further evaluate her liver lesions. Since she is totally asymptomatic and up-to-date with all her cancer screening, the patient agrees to wait 3 months and repeat her ultrasound of the liver. 2) repeat liver function and ultrasound liver OV in 3 months Kash Shook MD Cc: Dr. Raleigh Bills CT LIVER/PELVIS W IVCON Observed: 05/08/2017 Status: F Source: [place] 1:43 PM [facility] REPOSITORY * * *Final Report* * * DATE OF EXAM: May 08 2017 1:43PM [facility] 0550 - CT LIVER/PELVIS W IVCON / PROCEDURE REASON: multiple diagnoses * * * * Physician Interpretation * * * * EXAMINATION: CT ABDOMEN AND PELVIS WITH IV CONTRAST CLINICAL HISTORY: This study is done for further evaluation of multiple hypodense structures in the liver seen on outside CT scan of the chest. TECHNIQUE: CT of the abdomen and pelvis was performed using standard technique, scanning from just above the dome of the diaphragm to the symphysis pubis. Images of the abdomen were obtained during arterial, venous and equilibrium phases per three-phase liver protocol. MQ: CTAP_3 Contrast: IV: 150 ml of Omnipaque 300 Oral: None CT Radiation dose: Integrated Dose-length product (DLP) for this visit = 2279 mGy*cm. CT Dose Reduction Employed: mAs-kVp adjusted based on patient size-age COMPARISON: CT chest from an outside hospital 04/26/2017 RESULT: Liver: There are multiple thin-walled cystic structures throughout the liver. Some of these contain thin septations. For example there is a cystic structure with thin septations in the anterior dome of the liver which measures 4.5 x 4.8 cm on image 20, series 7. There is a cluster of cystic structures in the medial left lobe of the liver which measures 4.2 x 4.3 cm on image 29, series 7. There is a round structure slightly denser than would be expected for a simple cyst in the anterior lateral dome of the liver which measures 2 cm on image 17, series 7. This structure is uniformly low in density. Biliary: No bile duct dilation. The gallbladder has a normal appearance. Spleen: No mass. No splenomegaly. Pancreas: No mass or duct dilation. Adrenals: No mass. Kidneys: The kidneys enhance symmetrically. There is no hydronephrosis. GI tract: No dilation or wall thickening. There is a small hiatal hernia. Lymph nodes: No abdominal or pelvic lymphadenopathy. Mesentery/Peritoneum: No ascites or mass. Retroperitoneum: No mass. Vasculature: The celiac axis and SMA are patent. The portal vein and branches, splenic vein, SMV, and hepatic veins are patent. No abdominal aortic aneurysm. Pelvis: No mass, ascites or fluid collection. The bladder has a normal appearance. Bones/Soft Tissues: There is generalized demineralization of bone. Lower thorax: No pleural effusion or consolidation. IMPRESSION: 1. There are multiple thin-walled fluid attenuation structures in the liver which most likely represent cysts. Cystic metastases are less likely. 2. There is a uniformly hypodense structure in the lateral right dome of the liver image 17, series 7 which could represent a complex cyst or hypovascular mass. This could be further evaluated by MRI of the liver or ultrasound examination. 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: MYRON Transcribe Date/Time: May 09 2017 2:12P Dictated by : OLGA LYLES MD This examination was interpreted and the report reviewed and electronically signed by: OLGA LYLES MD on May 09 2017 2:35PM EST [id number] PROGRESS Observed: 05/08/2017 Status: COMPLETED Source: [place] 1:20 PM [facility] REPOSITORY HNO ID: [id number] Author: Arti (Rt) Anton Vance Service: (none) Author Type: Paste Up Artist Apprentice Type: Progress Notes Filed: 05/08/2017 1:49 PM Note Text: Radiology Service Progress Note PATIENT NAME: Demetra Whitaker DATE OF SERVICE: May 08, 2017 TIME: 1:20 PM PATIENT IDENTITY VERIFICATION COMPLETED USING TWO (2) METHODS: Patient confirmed name verbally and Date of . PATIENT GENDER DATA: Female. status: : No status: NO. PATIENT RELEVANT IMPLANT DATA REVIEWED: Not Applicable CONTRAST INDUCED NEPHROPATHY RISK FACTORS: Patient age > 60 years CREATININE: Creatinine Date Value Ref Range Status 05/02/2017 0.88 0.58 - 0.96 mg/dL Final eGFR-All Other Races Date Value Ref Range Status 05/02/2017 >60 . Final Comment: eGFR (Estimated GFR) Units of measure: mL/min/1.73 meters squared eGFR is derived from the reexpressed MDRD Study equation using the following parameters: serum creatinine, age, gender and race. The creatinine assay has been calibrated to be traceable to IDMS. An eGFR <60 mL/min/1.73m2 for >3 months is consistent with chronic kidney disease. Refer to KDOQI guidelines for clinical interpretation. In patients with unstable renal function, e.g. those with acute kidney injury, the eGFR may not accurately reflect actual GFR. eGFR- Date Value Ref Range Status 05/02/2017 >60 Final P.O.C.T. RESULTS: POC done: Yes, See Lab Tab May 08, 2017 RADIOLOGIST NOTIFIED?: No ALLERGIES: Reviewed and unchanged CONTRAST ALLERGY: NO. PERIPHERAL IV ACCESS: Ambulatory: IV type: A peripheral IV was started in the Right antecubital site with a Angio cath: 20 gauge., Site assessment: Clean,Dry and Intact, Site disposition Discontinued RADIOLOGY DEPARTMENT: CT; Exam(s) Completed: Abdomen/Pelvis SIGNED BY: RT Naheed May 08, 2017 1:20 PM EMERGENCY DEPARTMENT Observed: 05/04/2017 Status: F [facility] AM [facility] EM[facility]ENCY DEPARTMENT SUMMARY NAME NUMBER SEX AGE ADMIT DISC TYPE MED.RECORD# JULIANNE MCCRARY [id number] F 71 04/26/17 O/P [id number] ROOM:[id number] DATE OF :1945 PHYSICIAN NO.:[id number] PHYSICIAN NAME:Pedro Saini M.D. PHYSICIAN: CHIEF COMPLAINT: Chest pain. HISTORY OF PRESENT ILLNESS: The patient is 72 years old. She was working around the yard with her cutting wood with a chainsaw. She got in a truck or tractor and then suddenly got severe pain in the left chest. She points more towards the left breast area. She described it as continuous sharp pain with frequent episodes like the pain becomes severe. She was very uncomfortable, not used to having pain this severe. She has no fever, no chills, no cough, no congestion, no abdominal pain, no nausea, vomiting, diarrhea. No diaphoresis. No other issue or symptoms. Her brought her in for evaluation and treatment. PAST MEDICAL HISTORY: Hypertension. CURRENT MEDICATIONS: Reviewed. See the nurses' notes. ALLERGIES: None known. FAMILY HISTORY: No significant family history. SOCIAL HISTORY: Lives with significant other. Nonsmoker. REVIEW OF SYSTEMS: System review as per assessment sheet. PHYSICAL EXAMINATION: She is very uncomfortable. Vital Signs: Blood pressure is 178/83. Pulse 100. Respirations 18. O2 saturation 94% on room air. Temperature: Normal. Head: Normocephalic, face no edema or swelling. Eyes: No icterus or injection of conjunctivae. Ears: No drainage, no erythema. Tympanic membranes are translucent. Mouth: Mucous membranes are moist. Throat: No erythema, no swelling or exudate. Chest: Symmetrical. No sternal rib retractions. No chest wall tenderness. No using accessory muscles. Heart: Regular rhythm, no murmurs or rub audible. Lungs: Clear to auscultation, no rales, rhonchi or wheeze. Abdomen: Soft, nontender, no mass, no organomegaly palpable. Skin: Warm and dry. Extremities: She does not have any peripheral edema. MEDICAL DECISION MAKING: Consider cardiac etiology as well as a PE or pulmonary problem. Current EKG read by me showed sinus rhythm. Rate 101, normal axis and no diagnostic ST-T changes. CT PE study of the chest read by the Radiologist: Negative for PE. Numerous cystic lesions throughout the liver. Moderate attenuation of the vertebral bodies. May represent marrow or infiltrate abnormality or metastatic disease. Her chemistry showed blood sugar 180, otherwise was normal and her Troponin is 0.1. Her white count 9.1, hemoglobin 14.4. EMERGENCY DEPARTMENT COURSE AND TREATMENT: She was given Toradol IV and Dilaudid for pain. She was comfortable. The pain was still there but not as bad. Give her baby aspirin. Going to admit her. I talked to Dr. Saini. She will be admitted for further work up. ADMISSION DIAGNOSIS: Chest pain. PLAN/DISPOSITION: Serial EKGs, enzymes and consider stress testing on Saturday. Consider further evaluation for the bony lesions. She already has seen Dr. Heladio Reddy for arthritis of her knee. CONDITION ON ADMISSION: Stable. D: Sandra Casey MD TD: 19:36 JOB #: [id number] Transcribed by: emily 04/27/2017 15:15 Electronically signed by: E-Sign Sandra Casey M.D. 05/04/17 08:40 PROGRESS Observed: 05/02/2017 Status: COMPLETED Source: [place] 2:11 PM [facility] REPOSITORY HNO ID: [id number] Author: Kash Shook Service: (none) Author Type: Physician Type: Progress Notes Filed: 05/03/2017 7:58 AM Note Text: Hematology and Medical Oncology PATIENT NAME: Demetra Whitaker. [facility] NO: [id number]. ATTENDING PHYSICIAN: Kash Shook MD. DATE OF SERVICE:05/02/2017. DIAGNOSIS: Metastatic liver lesions of unknown primary Consultation requested by Dr. Saini for an opinion regarding Liver lesions. My final recommendations will be communicated back to the requesting physician by way of shared Medical record or letter to requesting physician via US mail. 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 Patient has no shortness of breath, nausea, vomiting or diaphoresis with her pain. She arrived to the emergency room for further evaluation of her chest pain. Her EKG was normal, cardiac enzymes were negative. She had a 2-D echocardiogram which showed normal left ventricular size and function with an EF of 55-60%. She also had a nuclear stress test which was negative for inducible ischemia. A CT scan of the chest show no evidence of pulmonary embolus, however there were multiple numerous cystic lesions throughout the liver. there are various mottled attenuation of the vertebral body no lytic or blastic lesions of the bone. She also deny history of bone pain or pathologic fractures. she had bilateral mammogram screening earlier this year which was normal. Also had a screening colonoscopy last year with Dr. Ye Reddy and it was reported to be normal. Patient denies significant weight change, anorexia, or change in bowel habit. She has no abdominal pain or bloating, no evidence of jaundice or change in her appetite. Patient has no urinary symptoms, dysuria or hematuria. Previous surgeries include appendectomy and tonsillectomy. She does not smoke, or drink, and no drug use. 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 She has family history of colon cancer, breast cancer, and lymphoma. She has a daughter with thyroid cancer. No family history of heart disease. MEDICATIONS: Current Outpatient Prescriptions: hydroCHLOROthiazide (HYDRODIURIL, ESIDRIX) 25 mg tablet Take 25 mg by mouth once daily. levothyroxine (SYNTHROID) 100 mcg tablet Take 100 mcg by mouth once daily. Tbghn-0-OVH-EPA-Fish Oil (FISH OIL) 1,000 mg (120 mg-180 mg) cap Take 2 g by mouth twice daily. MULTIVITAMIN TAB Take one(1) tablet daily. iv contrast (radiology procedure) CT LIVER/PEL Inject, intravenously, once for 1 dose.No IV access, insert saline lock prior to the beginning of sedation, infusion, injection of imaging exam. Discontinue saline lock post exam. If Pt. has a central line or IVAD, may access for administration according to line specific nursing protocol. Once exam is complete flush line and de-access according to line specific nursing protocol in the CT contrast administration guidelines link. No current facility-administered medications for this visit. . ALLERGIES:ALLERGIES No Known Allergies. PAST MEDICAL HISTORY:No past medical history on file.. PAST SURGICAL HISTORY: PAST SURGICAL HISTORY Procedure Laterality Date - APPENDECTOMY HX - TONSILLECTOMY HX Bilateral . FAMILY HISTORY: FAMILY HISTORY Problem Relation Age of Onset - Cancer Mother colon and breast - No Known Problems Father - leukemia [OTHER] Sister - Diabetes Brother - arrythmia [OTHER] Brother - lymphoma [OTHER] Brother . SOCIAL HISTORY:Social History Marital status: Spouse name: Years of education: Number of children: Social History Main Topics Smoking status: Never Smoker Smokeless status: Never Used Alcohol use: No Drug use: Yes . REVIEW OF SYSTEMS: CONSTITUTIONAL: No fevers, chills, nightsweats, unintended weight loss HEENT: Denies frequent or severe heaches, nasal congestion/sinus symptoms, problematic allergy problems. EYES: No diplopia or blurry vision. CARDIOVASCULAR: No chest pain, dyspnea, palpitations, orthopnea, PND, ankle edema. PULM: No dyspnea, unexplained cough. GI: No dysphagia/odynophagia, problematic reflux, constipation, diarrhea, changes in stool habits, hematochezia, melena. : No new urinary complaints, including dysuria, gross hematuria or pyuria. NEURO: No new balance problems, peripheral weakness/paresthesias or numbness of concern. MUSC-SKEL: No new joint pain, swelling, or erythema. PSY: No concerns regarding depression, anxiety or panic. INTEGUMENTARY: No new skin changes (rash, new or changing mole, new growth) PHYSICAL EXAMINATION: 71-year-old moderately obese female in no acute distress BP 130/71 Pulse 72 Temp 98 Ht 5' 4.567[verified by Ora Dahl MA[ (1.64m) Wt 229 lb (103.9kg) BMI 38.62 kg/(m2). HEENT: Head is normocephalic, atraumatic. Sclerae white, conjunctivae pink. PEERL. EOMs are intact. Oropharynx is benign. LYMPHATICS: There is no palpable adenopathy in the neck, supraclavicular region, axillae, or groin. BREASTS: Without skin dimpling, nipple discharge or masses. LUNGS: Lungs are clear to percussion and auscultation. HEART: Heart is normal without murmurs, gallops, or rubs. ABDOMEN: Obese, Soft and nontender without organomegaly. No masses can be palpated. EXTREMITIES: Are without edema. NEUROLOGIC: Exam is physiologic LABORATORY DATA: Component Latest Ref Rng AND Units 05/02/2017 WBC, [place] 3.70 - 11.00 k/uL 7.24 RBC, [place] 3.90 - 5.20 m/uL 4.25 Hemoglobin, [place] 11.5 - 15.5 g/dL 13.4 Hematocrit, [place] 36.0 - 46.0 % 40.9 MCV, [place] 80.0 - 100.0 fL 96.2 MCH, [place] 26.0 - 34.0 pg 31.5 MCHC, [place] 30.5 - 36.0 g/dL 32.8 RDW, [place] 11.5 - 15.0 % 12.1 Platelet Cnt, [place] 150 - 400 k/uL 217 MPV, [place] 9.0 - 12.7 fL 11.7 Absol Gran Count 1.45 - 7.50 k/uL 4.47 Component Latest Ref Rng AND Units 05/02/2017 Protein, Total 6.3 - 8.0 g/dL 7.7 Albumin 3.9 - 4.9 g/dL 4.3 Calcium 8.5 - 10.2 mg/dL 9.5 Bilirubin, Total 0.2 - 1.3 mg/dL 0.2 Alkaline Phosphatase 32 - 117 U/L 46 AST 13 - 35 U/L 29 Glucose 74 - 99 mg/dL 155 (H) BUN 7 - 21 mg/dL 15 Creatinine 0.58 - 0.96 mg/dL 0.88 Sodium 136 - 144 mmol/L 142 Potassium 3.7 - 5.1 mmol/L 4.6 Chloride 97 - 105 mmol/L 99 CO2 22 - 30 mmol/L 30 Anion Gap 9 - 18 mmol/L 13 ALT 7 - 38 U/L 36 eGFR- >60 eGFR-All Other Races . >60 PT Sec 9.7 - 13.0 sec 10.9 PT INR 0.9 - 1.3 1.1 APTT 23.0 - 32.4 sec 27.3 IMAGING: CT CHEST: No pulmonary embolism, atelectasis, no disease of the lungs. Numerous cystic lesion throughout the liver, incompletely characterized on this exam. Mottled attenuation of the vertebral bodies. ASSESSMENT: 71-year-old female with noncardiac chest pain; probably muscular skeletal pain presented with an abnormal CT scan of chest. Patient has a family history of cancer, with multiple cystic lesions throughout the liver. Need to rule- out metastatic cancer of unknown primary. She is up-to-date with her colonoscopy and mammogram screening for colorectal and breast cancer. PLAN: 1) cystic lesions throughout the liver- r/o metastatic cancer of unknown primary vs. NONINVASIVE MUCINOUS CYSTIC NEOPLASM (CYSTADENOMA) - Proceed with CT liver and CT pelvis next week AND follow- up to discuss possible CT-guided biopsy of a liver lesions. 2) noncardiac chest pain- probably related to muscular skeletal pain-resolved - No evidence of metastatic disease at this time to her bone. - Depending on her labs and CT scans before further evaluation; possible bone scan or skeletal survey if needed. - Continue Tylenol as needed for pain. I spent 45 minutes in the visit, with more than 50% of the total [id number] time of the visit in counseling / coordination of care. The patient and family were allowed enough time to ask questions. All questions were answered to their satisfaction. Patient and family verbalized understanding of abnormal CT scan and liver lesions and agreed to proceed with further evaluation. Kash Shook MD. ELECTRONICALLY SIGNED Cc: Dr. Raleigh Bills CNOVSP Observed: 05/02/2017 Status: COMPLETED Source: [place] 2:00 PM [facility] REPOSITORY Visit (SP) Office ([place]) DEMETRA WHITAKER I ([id number]) 1945 F Date Time Provider Department 05/02/17 2:00 PM KASH SHOOK During your visit today, we recorded the following information about you: Temperature Pulse Blood pressure Weight 98 degrees 72/minute 130/71 103.9 kg Height 1.64 m Berkley Anderson LPN 05/02/2017 1:54 PM Signed New patient. Discuss recent labs, abnormal CT scan. Berkley Shook MD 05/03/2017 7:58 AM Signed Hematology and Medical Oncology PATIENT NAME: Demetra Whitaker. CLINIC NO: [id number]. ATTENDING PHYSICIAN: Kash Shook MD. DATE OF SERVICE:05/02/2017. DIAGNOSIS: Metastatic liver lesions of unknown primary Consultation requested by Dr. Saini for an opinion regarding Liver lesions. My final recommendations will be communicated back to the requesting physician by way of shared Medical record or letter to requesting physician via US mail. 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 Patient has no shortness of breath, nausea, vomiting or diaphoresis with her pain. She arrived to the emergency room for further evaluation of her chest pain. Her EKG was normal, cardiac enzymes were negative. She had a 2-D echocardiogram which showed normal left ventricular size and function with an EF of 55-60%. She also had a nuclear stress test which was negative for inducible ischemia. A CT scan of the chest show no evidence of pulmonary embolus, however there were multiple numerous cystic lesions throughout the liver. there are various mottled attenuation of the vertebral body no lytic or blastic lesions of the bone. She also deny history of bone pain or pathologic fractures. she had bilateral mammogram screening earlier this year which was normal. Also had a screening colonoscopy last year with Dr. Ye Reddy and it was reported to be normal. Patient denies significant weight change, anorexia, or change in bowel habit. She has no abdominal pain or bloating, no evidence of jaundice or change in her appetite. Patient has no urinary symptoms, dysuria or hematuria. Previous surgeries include appendectomy and tonsillectomy. She does not smoke, or drink, and no drug use. 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 She has family history of colon cancer, breast cancer, and lymphoma. She has a daughter with thyroid cancer. No family history of heart disease. MEDICATIONS: Current Outpatient Prescriptions: hydroCHLOROthiazide (HYDRODIURIL, ESIDRIX) 25 mg tablet Take 25 mg by mouth once daily. levothyroxine (SYNTHROID) 100 mcg tablet Take 100 mcg by mouth once daily. Uektg-8-VFM-EPA-Fish Oil (FISH OIL) 1,000 mg (120 mg-180 mg) cap Take 2 g by mouth twice daily. MULTIVITAMIN TAB Take one(1) tablet daily. iv contrast (radiology procedure) CT LIVER/PEL Inject, intravenously, once for 1 dose.No IV access, insert saline lock prior to the beginning of sedation, infusion, injection of imaging exam. Discontinue saline lock post exam. If Pt. has a central line or IVAD, may access for administration according to line specific nursing protocol. Once exam is complete flush line and de-access according to line specific nursing protocol in the CT contrast administration guidelines link. No current facility-administered medications for this visit. . ALLERGIES:ALLERGIES No Known Allergies. PAST MEDICAL HISTORY:No past medical history on file.. PAST SURGICAL HISTORY: PAST SURGICAL HISTORY Procedure Laterality Date - APPENDECTOMY HX - TONSILLECTOMY HX Bilateral . FAMILY HISTORY: FAMILY HISTORY Problem Relation Age of Onset - Cancer Mother colon and breast - No Known Problems Father - leukemia [OTHER] Sister - Diabetes Brother - arrythmia [OTHER] Brother - lymphoma [OTHER] Brother . SOCIAL HISTORY:Social History Marital status: Spouse name: Years of education: Number of children: Social History Main Topics Smoking status: Never Smoker Smokeless status: Never Used Alcohol use: No Drug use: Yes . REVIEW OF SYSTEMS: CONSTITUTIONAL: No fevers, chills, nightsweats, unintended weight loss HEENT: Denies frequent or severe heaches, nasal congestion/sinus symptoms, problematic allergy problems. EYES: No diplopia or blurry vision. CARDIOVASCULAR: No chest pain, dyspnea, palpitations, orthopnea, PND, ankle edema. PULM: No dyspnea, unexplained cough. GI: No dysphagia/odynophagia, problematic reflux, constipation, diarrhea, changes in stool habits, hematochezia, melena. : No new urinary complaints, including dysuria, gross hematuria or pyuria. NEURO: No new balance problems, peripheral weakness/paresthesias or numbness of concern. MUSC-SKEL: No new joint pain, swelling, or erythema. PSY: No concerns regarding depression, anxiety or panic. INTEGUMENTARY: No new skin changes (rash, new or changing mole, new growth) PHYSICAL EXAMINATION: 71-year-old moderately obese female in no acute distress BP 130/71 Pulse 72 Temp 98 Ht 5' 4.567ANDquot;[verified by Ora Dahl MA[ (1.64m) Wt 229 lb (103.9kg) BMI 38.62 kg/(m2). HEENT: Head is normocephalic, atraumatic. Sclerae white, conjunctivae pink. PEERL. EOMs are intact. Oropharynx is benign. LYMPHATICS: There is no palpable adenopathy in the neck, supraclavicular region, axillae, or groin. BREASTS: Without skin dimpling, nipple discharge or masses. LUNGS: Lungs are clear to percussion and auscultation. HEART: Heart is normal without murmurs, gallops, or rubs. ABDOMEN: Obese, Soft and nontender without organomegaly. No masses can be palpated. EXTREMITIES: Are without edema. NEUROLOGIC: Exam is physiologic LABORATORY DATA: Component Latest Ref Rng ANDamp; Units 05/02/2017 WBC, [place] 3.70 - 11.00 k/uL 7.24 RBC, [place] 3.90 - 5.20 m/uL 4.25 Hemoglobin, [place] 11.5 - 15.5 g/dL 13.4 Hematocrit, [place] 36.0 - 46.0 % 40.9 MCV, [place] 80.0 - 100.0 fL 96.2 MCH, [place] 26.0 - 34.0 pg 31.5 MCHC, [place] 30.5 - 36.0 g/dL 32.8 RDW, [place] 11.5 - 15.0 % 12.1 Platelet Cnt, [place] 150 - 400 k/uL 217 MPV, [place] 9.0 - 12.7 fL 11.7 Absol Gran Count 1.45 - 7.50 k/uL 4.47 Component Latest Ref Rng ANDamp; Units 05/02/2017 Protein, Total 6.3 - 8.0 g/dL 7.7 Albumin 3.9 - 4.9 g/dL 4.3 Calcium 8.5 - 10.2 mg/dL 9.5 Bilirubin, Total 0.2 - 1.3 mg/dL 0.2 Alkaline Phosphatase 32 - 117 U/L 46 AST 13 - 35 U/L 29 Glucose 74 - 99 mg/dL 155 (H) BUN 7 - 21 mg/dL 15 Creatinine 0.58 - 0.96 mg/dL 0.88 Sodium 136 - 144 mmol/L 142 Potassium 3.7 - 5.1 mmol/L 4.6 Chloride 97 - 105 mmol/L 99 CO2 22 - 30 mmol/L 30 Anion Gap 9 - 18 mmol/L 13 ALT 7 - 38 U/L 36 eGFR- ANDgt;60 eGFR-All Other Races . ANDgt;60 PT Sec 9.7 - 13.0 sec 10.9 PT INR 0.9 - 1.3 1.1 APTT 23.0 - 32.4 sec 27.3 IMAGING: CT CHEST: No pulmonary embolism, atelectasis, no disease of the lungs. Numerous cystic lesion throughout the liver, incompletely characterized on this exam. Mottled attenuation of the vertebral bodies. ASSESSMENT: 71-year-old female with noncardiac chest pain; probably muscular skeletal pain presented with an abnormal CT scan of chest. Patient has a family history of cancer, with multiple cystic lesions throughout the liver. Need to rule- out metastatic cancer of unknown primary. She is up-to-date with her colonoscopy and mammogram screening for colorectal and breast cancer. PLAN: 1) cystic lesions throughout the liver- r/o metastatic cancer of unknown primary vs. NONINVASIVE MUCINOUS CYSTIC NEOPLASM (CYSTADENOMA) - Proceed with CT liver and CT pelvis next week ANDamp; follow- up to discuss possible CT-guided biopsy of a liver lesions. 2) noncardiac chest pain- probably related to muscular skeletal pain-resolved - No evidence of metastatic disease at this time to her bone. - Depending on her labs and CT scans before further evaluation; possible bone scan or skeletal survey if needed. - Continue Tylenol as needed for pain. I spent 45 minutes in the visit, with more than 50% of the total [id number] time of the visit in counseling / coordination of care. The patient and family were allowed enough time to ask questions. All questions were answered to their satisfaction. Patient and family verbalized understanding of abnormal CT scan and liver lesions and agreed to proceed with further evaluation. Kash Shook MD. ELECTRONICALLY SIGNED Cc: Dr. Raleigh Bills Referring Provider: ORIANA SAINI [[id number]] Allergies As of Date: 05/02/2017 (No Known Allergies) Date Reviewed: 05/02/2017 Reviewed by: Berkley Anderson LPN - Fully Assessed Reason for Visit: New Patient [172] Primary Visit Diagnosis:Liver metastases (HCC) [C78.7] Other Visit Diagnoses:Simple goiter [E04.0] Cancer with unknown primary site (HCC) [C80.1] Order(s):CT LIVER/PELVIS W IVCON [[id number]] Order #: [id number] FUTURE iv contrast (radiology procedure)CT LIVER/PEL Inject, intravenously, once for 1 dose.No IV access, insert saline lock prior to the beginning of sedation, infusion, injection of imaging exam. Discontinue saline lock post exam. If Pt. has a central line or IVAD, may access for administration according to line specific nursing protocol. Once exam is complete flush line and de- access according to line specific nursing protocol in the CT contrast administration guidelines link.Disp: 1 EachRfl: 0 Level of Service: NEW PATIENT VISIT LEVEL 4 [68102] Disposition: Return in about 1 week (around 05/09/2017). LOS history recorded Follow-up and Disposition History Recorded Prescriptions as of 05/02/2017 Sig: HYDROCHLOROTHIAZIDE 25 MG TAB* Take 25 mg by mouth once shaw* LEVOTHYROXINE 100 MCG TABLET Take 100 mcg by mouth once da* OMEGA 5-HKB-KCM-FISH OIL 1,00* Take 2 g by mouth twice daily. MULTIVITAMIN TABLET Take one(1) tablet daily. IV CONTRAST (RADIOLOGY PROCED* CT LIVER/PEL Inject, intraven* Medication notes this encounter HYDROCHLOROTHIAZIDE 25 MG TABLET >> Berkley Anderson LPN 05/02/2017 1:35 PM >> BERKLEY ANDERSON LPN [place] May 02, 2017 1:35 PM Received from: External Pharmacy LEVOTHYROXINE 100 MCG TABLET >> Berkley Anderson LPN 05/02/2017 1:35 PM >> BERKLEY ANDERSON LPN [place] May 02, 2017 1:35 PM Received from: External Pharmacy OMEGA 7-SQN-BSB-FISH OIL 1,000 MG (120 MG-180 MG) CAPSULE >> Berkley Anderson LPN 05/02/2017 1:37 PM >> BERKLEY ANDERSON LPN [facility] May 02, 2017 1:37 PM Takes 1200 mg daily LEVOXYL 88 MCG TABLET >> Berkley Anderson LPN 05/02/2017 1:35 PM >> BERKLEY ANDERSON LPN [place] May 02, 2017 1:35 PM discontinued CALCIUM 600 600 MG TABLET >> Berkley Anderson LPN 05/02/2017 1:37 PM >> BERKLEY ANDERSON LPN [place] May 02, 2017 1:37 PM discontinued GLUCOSAMINE-CHONDROITIN 750 MG-600 MG TABLET >> Berkley Anderson LPN 05/02/2017 1:37 PM >> BERKLEY ANDERSON LPN [place] May 02, 2017 1:37 PM discontinued Problem List As Of Date 05/02/2017 Noted Resolved Simple goiter [E04.0] INVALID FOR* Visit Notes: >> Berkely Anderson LPN [facility] May 02, 2017 1:38 PM Status: Signed New patient. Discuss recent labs, abnormal CT scan. Berkley Anderson LPN Encounter Status:Closed by KASH SHOOK MD on 05/03/17 [place] ABS GR + CBC Collected: 05/02/2017 Status: F Source: [place] 1:15 PM [facility] REPOSITORY TYPE CODE TESTS RESULT OUT OF REFERENCE UNITS RANGE LAB WWBC 3.70-11.00 k/uL [place] WBC 7.24 LAB WRBC 3.90-5.20 m/uL [place] RBC 4.25 LAB WHGB 11.5-15.5 g/dL [place] Hemoglobin 13.4 LAB WHCT 36.0-46.0 % [place] Hematocrit 40.9 LAB WMCV 80.0-100.0 fL [place] MCV 96.2 LAB WMCH 26.0-34.0 pg [place] MCH 31.5 LAB WMCHC 30.5-36.0 g/dL [place] MCHC 32.8 LAB WRDW 11.5-15.0 % [place] RDW 12.1 LAB WPLT 150-400 k/uL [place] Platelet Cnt 217 LAB WMPV 9.0-12.7 fL [place] MPV 11.7 Result Comment: Test performed at: [facility] [place], [address] [place] [address]. LAB ABGRAN 1.45-7.50 k/uL Absol Gran 4.47 Count COMP METABOLIC PANEL Collected: 05/02/2017 Status: F Source: [place] 1:15 PM [facility] REPOSITORY TYPE CODE TESTS RESULT OUT OF REFERENCE UNITS RANGE LAB TP 6.3-8.0 g/dL Protein, Total 7.7 LAB ALB 3.9-4.9 g/dL Albumin 4.3 LAB CA 8.5-10.2 mg/dL Calcium, Total 9.5 LAB TBIL 0.2-1.3 mg/dL Bilirubin, Total 0.2 LAB ALKP 32-117 U/L Alkaline Phosphatase 46 LAB AST 13-35 U/L AST 29 LAB GLU 74-99 mg/dL Glucose High 155 Result Comment: The [place] Diabetes Association (ADA) provides guidance for cutoff values for fasting glucose and random glucose. The ADA defines fasting as no caloric intake for at least 8 hours. Fas ting plasma glucose results between 100 to 125 mg/dL indicate increased risk for diabetes (prediabetes). Fasting plasma glucose results greater than or equal to 126 mg/dL meet the criteria for diagnosis of diabetes. In the absence of unequivocal hyperglycemia, results should be confirmed by repeat testing. In a patient with classic symptoms of hyperglycemia or hyperglycemic crisis, random plasma glucose results greater than or equal to 200 mg/dL meet the criteria for diagnosis of diabetes. Reference: Standards of Medical Care in Diabetes 2016, [place] Diabetes Association. Diabetes Care. 2016.39(Suppl 1). LAB BUN 7-21 mg/dL BUN 15 LAB CRET 0.58-0.96 mg/dL Creatinine 0.88 LAB NA 136-144 mmol/L Sodium 142 LAB K 3.7-5.1 mmol/L Potassium 4.6 LAB CL 97-105 mmol/L Chloride 99 LAB CO2 22-30 mmol/L CO2 30 LAB AGAP 9-18 mmol/L Anion Gap 13 LAB ALT 7-38 U/L ALT 36 LAB GFRAA eGFR- Amer. >60 LAB GFRNAA . eGFR-All Other Races >60 Result Comment: eGFR (Estimated GFR) Units of measure: mL/min/1.73 meters squared eGFR is derived from the reexpressed MDRD Study equation using the following parameters: serum creatinine, age, gender and race. The creatinine assay has been calibrated to be traceable to IDMS. An eGFR <60 mL/min/1.73m2 for >3 months is consistent with chronic kidney disease. Refer to KDOQI guidelines for clinical interpretation. In patients with unstable renal function, e.g. those with acute kidney injury, the eGFR may not accurately reflect actual GFR. Performed By: #### CMP, PT, PTT #### [facility] [address] [place], [place] [address] PROTIME Collected: 05/02/2017 Status: F Source: [place] 1:15 PM [facility] REPOSITORY TYPE CODE TESTS RESULT OUT OF RANGE REFERENCE UNITS LAB PSEC 9.7-13.0 sec PT Sec 10.9 LAB INR 0.9-1.3 PT INR 1.1 Result Comment: Vitamin K Antagonist (VKA) Therapeutic Range: INR 2 to 3 (Target INR of 2.5) Note: For patients treated with VKA drugs, such as warfarin, the [place] College [employer]icians 2012 Guideline recommends a therapeutic INR range of 2 to 3 (target INR of 2.5). This recommendation includes high-risk patients with antiphospholipid syndrome with previous arterial or venous thromboembolism, current-generation mechanical or bioprosthetic aortic heart valve replacement. Note: Patients with mechanical aortic valve replacement and additional risk factors for thromboembolic events (atrial fibrillation, previous thromboembolism, LV dysfunction, hypercoagulable conditions) or an older generation mechanical AVR (i.e., ball in-Cage) or any mechanical MVR should have a INR therapeutic range of 2.5 to 3.5 (target INR of 3). Paresh GH, et al. Chest 2012, 141:7S-47S Chaya RA, et al. JAC 2017, 70: 252-289 Performed By: #### CMP, PT, PTT #### [facility] [address] [place], [place] [address] APTT Collected: 05/02/2017 Status: F Source: [place] 1:15 [facility] REPOSITORY TYPE CODE TESTS RESULT OUT OF RANGE REFERENCE UNITS LAB APTT 23.0-32.4 sec APTT 27.3 Result Comment: Unfractionated Heparin Therapeutic Ranges: Standard Heparin Nomogram: 53 to 78 seconds (anti-Xa level of 0.3 to 0.7 U/ml) Low Dose/ACS Nomogram: 49 to 67 seconds (anti-Xa level of 0.2 to 0.5 U/ml) Stroke Treatment Nomogram: 49 to 67 seconds (anti-Xa level of 0.2 to 0.5 U/ml) Note: The APTT therapeutic range has been determined for the current lot of laboratory APTT reagent in use throughout the [facility]. Performed By: #### CMP, PT, PTT #### [facility] [address] [place], [place] [address] DISCHARGE SUMMARY Observed: 04/30/2017 Status: F Source: DAVID [facility]UENT[facility] 11:37 AM [facility] DISCHARGE SUMMARY NAME NUMBER SEX AGE ADMIT DISC TYPE MED. RECORD# JULIANNE, [id number] [place] [id number] ROOM: DATE OF : 1945 PHYSICIAN NO: [id number] PHYSICIAN: ORIANA SAINI, FINAL DIAGNOSES: 1. Chest pain, noncardiac. 2. Abnormal CT scan, including of the vertebral bodies and liver. DIAGNOSTIC DATA: WBC is 7.8, hemoglobin 13.3, hematocrit 38.6, and platelet count 185,000. Troponin is 0.01. TSH is 1.29. Magnesium is 2.2. Sodium is 139, potassium 4, BUN 18, creatinine 0.8, and glucose 122. Albumin is 4.4. Total bilirubin is 0.3. Total cholesterol is 132, HDL 44, LDL 64, and triglycerides 119. Urinalysis is positive for leukocytes, 16-25 RBCs, and +1 bacteria. Studies obtained this hospital stay: 1. CT scan of the chest done in the Emergency Room showed no pulmonary embolism, but it showed mottled attenuation of the vertebral bodies. This may represent marrow or infiltrative abnormality or metastatic disease. There were numerous cystic lesions throughout the liver, incompletely characterized, and atelectasis. 2. Echocardiogram showed normal left ventricular size and systolic function with an ejection fraction of 55-60%. Normal right ventricular size and systolic function. Mild mitral annular calcification with mild thickening of the mitral valve leaflets with trace regurgitation. Mild aortic sclerosis with no significant aortic stenosis. Mildly calcified aortic root. Indeterminate diastolic function. Right ventricular systolic pressure estimated to be 26 mmHg. An addendum to the echocardiogram reported two cystic masses on the liver measuring 3.7 x 3.8 cm and 2.1 x 2.2 cm, with recommendations for further follow-up with dedicated liver imaging. 3. Exercise nuclear stress test was negative for inducible ischemia and negative for prior myocardial infarction. HOSPITAL COURSE: Earlier today I saw the patient. She was feeling good. She denies any chest pain. No shortness of breath. Blood pressure is 111/75, heart rate 83, respiratory rate 16, temperature 98.3, and oxygen saturation 94% on room air. Skin is warm and dry. Neck is supple. No nodes. No masses. No JVD. Lungs are symmetrical with equal lung expansion and clear to auscultation. Respiratory effort is normal. Heart is a regular rate and rhythm. Abdomen is soft and nontender. Extremities with no edema. 1. Chest pain. The patient has multiple risk factors for coronary artery disease, including obesity, sleep apnea and hypertension. She was admitted to a medical-surgical floor. Myocardial infarction was ruled out with serial enzymes and serial EKGs. The patient became chest pain-free. She underwent cardiac testing as mentioned above, which was negative, and she was discharged home in stable DEMETRA WHITAKER I Page 1 of 2 condition. 2. Hypertension with elevated blood pressures while in the hospital. The patient tells me that usually at home the blood pressure has been more controlled. I did not change any medications at this time, but the patient was advised to monitor her blood pressures and take the readings to her next office visit with her primary care provider. While in the hospital the Lopressor was increased, as the blood pressure was mildly elevated. 3. Abnormal CT scan of the chest that was initially done to rule out the possibility for pulmonary embolus or an aneurysm, but it showed abnormalities involving the vertebral bodies and the liver. Further work-up has been recommended. I discussed this finding with Orthopedic Surgery, and the recommendation was to refer the patient to see an oncologist to rule out the possibility for malignancy/cancer as the first step. Information was sent to [facility], and they are to contact the patient with an appointment. She was instructed to call back within the next three days if she does not hear from [facility]. 4. Obstructive sleep apnea. The patient was very compliant with CPAP treatment. 5. Obesity with a body mass index of 36.99 kg/m2, a complicating factor. The above was discussed with the patient in detail. All questions were answered, and she expressed understanding of the plan of care. She was discharged home in stable condition to be followed as an outpatient. MEDICATIONS ON DISCHARGE: The patient was advised to continue the current medications as before admission, including hydrochlorothiazide, fish oil, multivitamin and levothyroxine. DISCHARGE INSTRUCTIONS/PLAN: Destination: Home. Activity: No restrictions. Diet: Regular, high-fiber, [id number]. Follow up with Dr. Brent Bills on May 06, 2017, at 1:10 p.m., and [facility] will contact the patient with an appointment date and time. The patient was advised to monitor her blood pressure and bring the list of readings to her next office visit. D: Oriana Saini MD TD: 16:43 JOB #: [id number] Transcribed by: karen 04/30/2017 09:59 Electronically signed by: Pedro Saini M.D. 04/30/17 11:37 DEMETRA WHITAKER I Page 2 of 2 DISCHARGE SUMMARY Observed: 04/30/2017 Status: F Source: [facility] 11:37 AM [facility] DISCHARGE SUMMARY NAME NUMBER SEX AGE ADMIT DISC TYPE MED.RECORD# JULIANNE MCCRARY [id number] F 71 04/26/17 04/29/17 O/P [id number] ROOM:[id number] DATE OF :1945 PHYSICIAN NO.:[id number] PHYSICIAN NAME:Pedro Saini M.D. PHYSICIAN: FINAL DIAGNOSES: 1. Chest pain, noncardiac. 2. Abnormal CT scan, including of the vertebral bodies and liver. DIAGNOSTIC DATA: WBC is 7.8, hemoglobin 13.3, hematocrit 38.6, and platelet count 185,000. Troponin is 0.01. TSH is 1.29. Magnesium is 2.2. Sodium is 139, potassium 4, BUN 18, creatinine 0.8, and glucose 122. Albumin is 4.4. Total bilirubin is 0.3. Total cholesterol is 132, HDL 44, LDL 64, and triglycerides 119. Urinalysis is positive for leukocytes, 16-25 RBCs, and +1 bacteria. Studies obtained this hospital stay: 1. CT scan of the chest done in the Emergency Room showed no pulmonary embolism, but it showed mottled attenuation of the vertebral bodies. This may represent marrow or infiltrative abnormality or metastatic disease. There were numerous cystic lesions throughout the liver, incompletely characterized, and atelectasis. 2. Echocardiogram showed normal left ventricular size and systolic function with an ejection fraction of 55-60%. Normal right ventricular size and systolic function. Mild mitral annular calcification with mild thickening of the mitral valve leaflets with trace regurgitation. Mild aortic sclerosis with no significant aortic stenosis. Mildly calcified aortic root. Indeterminate diastolic function. Right ventricular systolic pressure estimated to be 26 mmHg. An addendum to the echocardiogram reported two cystic masses on the liver measuring 3.7 x 3.8 cm and 2.1 x 2.2 cm, with recommendations for further follow-up with dedicated liver imaging. 3. Exercise nuclear stress test was negative for inducible ischemia and negative for prior myocardial infarction. HOSPITAL COURSE: Earlier today I saw the patient. She was feeling good. She denies any chest pain. No shortness of breath. Blood pressure is 111/75, heart rate 83, respiratory rate 16, temperature 98.3, and oxygen saturation 94% on room air. Skin is warm and dry. Neck is supple. No nodes. No masses. No JVD. Lungs are symmetrical with equal lung expansion and clear to auscultation. Respiratory effort is normal. Heart is a regular rate and rhythm. Abdomen is soft and nontender. Extremities with no edema. 1. Chest pain. The patient has multiple risk factors for coronary artery disease, including obesity, sleep apnea and hypertension. She was admitted to a medical-surgical floor. Myocardial infarction was ruled out with serial enzymes and serial EKGs. The patient became chest pain-free. She underwent cardiac testing as mentioned above, which was negative, and she was discharged home in stable condition. 2. Hypertension with elevated blood pressures while in the hospital. The patient tells me that usually at home the blood pressure has been more controlled. I did not change any medications at this time, but the patient was advised to monitor her blood pressures and take the readings to her next office visit with her primary care provider. While in the hospital the Lopressor was increased, as the blood pressure was mildly elevated. 3. Abnormal CT scan of the chest that was initially done to rule out the possibility for pulmonary embolus or an aneurysm, but it showed abnormalities involving the vertebral bodies and the liver. Further work-up has been recommended. I discussed this finding with Orthopedic Surgery, and the recommendation was to refer the patient to see an oncologist to rule out the possibility for malignancy/cancer as the first step. Information was sent to [facility], and they are to contact the patient with an appointment. She was instructed to call back within the next three days if she does not hear from [facility]. 4. Obstructive sleep apnea. The patient was very compliant with CPAP treatment. 5. Obesity with a body mass index of 36.99 kg/m2, a complicating factor. The above was discussed with the patient in detail. All questions were answered, and she expressed understanding of the plan of care. She was discharged home in stable condition to be followed as an outpatient. MEDICATIONS ON DISCHARGE: The patient was advised to continue the current medications as before admission, including hydrochlorothiazide, fish oil, multivitamin and levothyroxine. DISCHARGE INSTRUCTIONS/PLAN: Destination: Home. Activity: No restrictions. Diet: Regular, high-fiber, [id number]. Follow up with Dr. Brent Bills on May 06, 2017, at 1:10 p.m., and [facility] will contact the patient with an appointment date and time. The patient was advised to monitor her blood pressure and bring the list of readings to her next office visit. D: Oriana Saini MD TD: 16:43 JOB #: [id number] Transcribed by: karen 04/30/2017 09:59 Electronically signed by: Pedro Saini M.D. 04/30/17 11:37 NM CARDIAC STRESS Observed: 04/29/2017 Status: F Source: [facility] (SPECT) W/TREADMILL 10:17 AM [place] [address] Patient: DEMETRA WHITAKER I. Phone#: : 1945 Age: 71 Gender: F Pt. Type: Out Account: [id number] Location: 010 Ordering: ORIANA SAINI Exam Date: 04/29/2017/7:43 Family Phys: RALEIGH BILLS Charge Code: [id number] Physician: [place] Order #: [id number] DLP Dose#: PROCEDURE: CARDIAC STRESS SPECT WITH TREADMILL EXERCISE HISTORY: 71-year-old female with history of hypertension and hypothyroidism INDICATIONS: Chest pain TECHNIQUE: Resting and stress SPECT images acquired in the horizontal long, vertical long and short axis views. Protocol: Ulises Duration: 06:00 minutes Peak Heart Rate: 136 bpm, which is 91% of maximum predicted heart rate. Workload: 7.00 METs REST DOSE: 11.4 mCi Sestamibi. STRESS DOSE: 34.4 mCi Sestamibi. INTERPRETATION: Resting Images: Reduced radiotracer uptake in the inferior wall. Stress Images: Normalization of resting perfusion defect in the inferior wall suggestive of diaphragmatic attenuation artifact. There is homogeneous radiotracer uptake throughout the myocardium. Gated SPECT/wall motion: Normal wall motion and normal end- systolic and brightening and thickening of all myocardial segments. Calculated LVEF >75% and left ventricle end diastolic volume 51 mL. CONCLUSION: 1. No evidence of inducible ischemia on prior myocardial infarction. 2. Normal wall motion and left ventricle systolic function, ejection fraction >75%. 3. Diaphragmatic attenuation artifact noted. 4. No prior study available for comparison. Continued Report - Page 2 of 2 Patient: DEMETRA WHITAKER I. Phone#: : 1945 Age: 71 Gender: F Pt. Type: Out Account: [id number] Location: 010 Ordering: Maizhuo Exam Date: 04/29/2017/7:43 Family Phys: RALEIGH BILLS Charge Code: [id number] Physician: [place] Order #: [id number] DLP Dose#: Dictated by: LINO DUMONT on 04/29/2017 at 10:31 Approved by: LINO DUMONT on 04/29/2017 at 10:31 NM EXERCISE STRESS Observed: 04/29/2017 Status: F Source: [facility] TEST (W/CARDIAC STUDY 9:02 AM [place] [address] Patient: DEMETRA WHITAKER I. Phone#: : 1945 Age: 71 Gender: F Pt. Type: Out Account: [id number] Location: 010 Ordering: [place] Exam Date: 04/29/2017/8:29 Family Phys: RALEIGH BILLS Charge Code: [id number] Physician: [place] Order #: [id number] DLP Dose#: PROCEDURE: ELECTROCARDIOGRAM STRESS TEST HISTORY: 71-year-old female history of hypertension and hypothyroidism INDICATIONS: CHEST PAIN TECHNIQUE: Electrocardiogram stress test was performed using the protocol listed below. STRESS RESULTS: Protocol: Ulises Duration: 6:00minutes Reason for termination: FATIGUE Resting Heart Rate: 65 bpm. Resting Blood Pressure: 138/67 mmHg Peak Heart Rate: 136 which is 91% of maximum predicted heart rate Peak Blood Pressure: 136/63 at 1:50 Recovery Workload: 7.0 METs. Symptoms with stress: No exercise induced chest pain. EKG Data EKG at Baseline: Normal sinus rhythm. Poor R wave progression in the anterior leads. EKG with Stress: No acute ST-T wave changes suggestive of ischemia. Occasional PVCs noted. CONCLUSION: 1. Negative exercise EKG stress test for ischemia. 2. No exercise induced chest pain. 3. Average functional capacity. 4. Abnormal heart rate recovery. 5. Nuclear images will be reviewed and reported separately. Dictated by: LINO DUMONT on 04/29/2017 at 10:27 Continued Report - Page 2 of 2 Patient: DEMETRA WHITAKER I. Phone#: : 1945 Age: 71 Gender: F Pt. Type: Out Account: [id number] Location: 010 Ordering: BUTROS LATOUF Exam Date: 04/29/2017/8:29 Family Phys: RALEIGH BILLS Charge Code: [id number] Physician: [place] Order #: [id number] DLP Dose#: Approved by: LINO DUMONT on 04/29/2017 at 10:27 CV ECHO COMPLETE Observed: 04/29/2017 Status: F Source: [facility] 7:46 AM [place] [address] Patient: DEMETRA WHITAKER I. Phone#: : 1945 Age: 71 Gender: F Pt. Type: Out Account: [id number] Location: 010 Ordering: BUTROS LATOUF Exam Date: 04/29/2017/5:44 Family Phys: RALEIGH BILLS Charge Code: [id number] Physician: [place] Order #: [id number] DLP Dose#: This report includes an Addendum and supersedes previous reports for this exam. PROCEDURE: ECHOCARDIOGRAM WITH DOPPLER AND COLOR FLOW HISTORY: 71-year-old female with hypertension INDICATIONS: Chest pain TECHNIQUE: A 2-D ultrasound, color spectral Doppler and M-mode evaluation of the heart and great vessels. PATIENT MEASUREMENTS: Height (in.): 65 BSA: 2.1 Weight (lbs.): 222 BP: 148/78 Roll Over Loader: STEPHANIE M MODE 2D MEASUREMENTS AND CALCULATIONS: LVIDd: 3.20 cm LVIDs: 1.59 cm IVSd: 2.05 cm LVPWd: 1.01 cm LVOT diam: 2.00 cm FS: 50.14 % Ao Root diam: 3.22 cm LA diam: 3.66 cm LA Volume Index: 21 mL/m2 LA A4 Area: 15.3 cm RA A4 Area: 10.5 cm2 RVDd: 1.95 cm TAPSE: 16 mm DOPPLER MEASUREMENTS AND CALCULATIONS MITRAL MV E MAX shyam: 113.09 cm/s Continued Report - Page 2 of 3 Patient: DEMETRA WHITAKER I. Phone#: : 1945 Age: 71 Gender: F Pt. Type: Out Account: [id number] Location: 010 Ordering: ORIANA SAINI Exam Date: 04/29/2017/5:44 Family Phys: RALEIGH BILLS Charge Code: [id number] Physician: [place] Order #: [id number] DLP Dose#: MV A MAX shyam: 157.42 cm/s MV E-A ratio: 0.72 MVA VTI 2.02 cm2 MV V2 max: 169.31 cm/s MV max P.48 mm[Hg] MV V2 mean: 100.75 cm/s MV mean P.46 mm[Hg] MV V2 VTI: 41.37 cm MV PHT: 111.00 ms MVA PHT 1.98 cm2 Lat Peak E' Shyam 5 cm/s Septal Peak E' SHYAM 4 cm/s Lateral E./E.' 21.1 Medial E./E.' 31.6 AORTIC Ao V2 max: 149.70 cm/s Ao max P.97 mm[Hg] Ao V2 mean: 102.28 cm/s Ao mean P.70 mm[Hg] Ao V2 VTI: 31.16 cm PRESTON (V Max): 2.21 cm2 PRESTON (VTI): 2.68 cm2 LV V1 Max 105.89 cm/s LV V1 Max PG 4.49 mm[Hg] LV V1 Mean PG 2.64 mm[Hg] LV V1 mean 77.84 cm/s LV V1 VTI 26.67 cm PULMONIC PA V2 Max 78.79 cm/s PA Max PG 2.48 mm[Hg] TRICUSPID TR Max Shyam 241.42 cm/s TR max PG 23.42 mm[Hg] RVSP 26 mmHg 2D/M-MODE AND COLOR FLOW LEFT VENTRICLE: Normal left ventricle size and wall thickness. Normal wall motion and systolic function, ejection fraction 55-60%. Indeterminate diastolic function. WALL MOTION: 1 - Basal anterior: Normal. 7 - Mid anterior: Normal. 13 - Apical anterior: Normal. 2 - Basal anteroseptal: Normal. 8 - Mid anteroseptal: Normal. 14 - Apical septal: Normal. Continued Report - Page 3 of 3 Patient: DEMETRA WHITAKER I. Phone#: : 1945 Age: 71 Gender: F Pt. Type: Out Account: [id number] Location: 010 Ordering: ORIANA SAINI Exam Date: 04/29/2017/5:44 Family Phys: RALEIGH BILLS Charge Code: [id number] Physician: [place] Order #: [id number] DLP Dose#: 3 - Basal inferoseptal: Normal. 9 - Mid inferoseptal: Normal. 15 - Apical inferior: Normal. 4 - Basal inferior: Normal. 10-Mid inferior: Normal. 16 - Apical lateral: Normal. 5 - Basal inferolateral: Normal. 11-Mid inferolateral: Normal. 6 - Basal anterolateral: Normal. 12-Mid anterolateral: Normal. RIGHT VENTRICLE: Normal size and systolic function LEFT ATRIUM: Normal RIGHT ATRIUM: Normal MITRAL VALVE: Mild mitral annular calcification. Mildly thickened mitral valve leaflets with normal leaflet mobility. Trace mitral regurgitation. TRICUSPID VALVE: Normal leaflet structure and mobility. Trace tricuspid regurgitation. AORTIC VALVE: Trileaflet aortic valve with mild aortic valve thickening and normal leaflet mobility. Mild aortic sclerosis with no significant aortic stenosis. No significant aortic regurgitation. PULMONIC VALVE: Normal leaflet structure and mobility. Trace pulmonic insufficiency. AORTIC ROOT: Normal size and mildly calcified IVC/SVC: Normal size and normal respirophasic response PERICARDIUM: No significant pericardial effusion. Prominent fat pad noted. CONCLUSION: 1. Normal left ventricle size and systolic function, ejection fraction 55-60%. 2. Normal right ventricle size and systolic function. 3. Mild mitral annular calcification with mild thickening of the mitral valve leaflets with trace regurgitation. 4. Mild aortic sclerosis with no significant aortic stenosis. 5. Mildly calcified aortic root. 6. Indeterminate diastolic function. 7. RVSP estimated to be 26 mmHg. 8. No prior study available for comparison. Dictated by: ILNO DUMONT on 04/29/2017 at 10:51 Approved by: LINO DUMONT on 04/29/2017 at 10:51 ADDENDUM: The 2 cystic masses seen on the liver in limited views measuring 3.7 cm x 3.8 cm and 2.1 cm x 2.2 cm in size respectively. Recommend dedicated liver imaging if clinically indicated. Dictated by: LINO DUMONT on 04/29/2017 at 12:12 Approved by: LINO DUMONT on 04/29/2017 at 12:12 PROGRESS NOTE Observed: 04/28/2017 Status: F Source: [facility] 3:26 PM [facility] PROGRESS NOTE NAME NUMBER SEX AGE ADMIT DISC TYPE MED.RECORD# JULIANNE MCCRARY [id number] F 71 04/26/17 O/P [id number] ROOM:303MO DATE OF :1945 PHYSICIAN NO.:[id number] PHYSICIAN NAME:Pedro Saini M.D. PHYSICIAN: DATE OF SERVICE: April 28, 2017 SUBJECTIVE: The patient is feeling good. She denies any chest pain. No shortness of breath. LABORATORY DATA: No new labs today. OBJECTIVE: No acute distress. Well-developed, well-nourished, laying on her bed comfortably. Blood pressure 155/80, heart rate 63, respiratory rate 16, temperature 98.4, oxygen saturation 93% on room air. Skin: Warm and dry. Neck: Supple. No nodes. No masses. No JVD. Lungs: Symmetrical. Equal lung expansion. Clear to auscultation. Respiratory effort normal. Heart: Regular rate and rhythm. Abdomen: Obese, soft, nontender. Extremities: No edema. Neurologic: The patient was alert, oriented x3. ASSESSMENT AND PLAN: 1. Chest pain, myocardial infarction was ruled out with serial enzymes and serial EKGs. Will continue telemetry monitoring. The patient is scheduled to have further cardiac evaluation in the morning including the stress testing and an echocardiogram. 2. Hypertension with mildly elevated blood pressures. Medications were adjusted yesterday. Will continue current treatment. 3. Abnormal CT scan including the vertebral bodies and the liver. Further workup as an outpatient has been recommended. 4. Possible discharge in a.m. if stable after finishing the cardiac testing. D: Oriana Saini MD TD: 11:15 JOB #: [id number] Transcribed by: richar 04/28/2017 11:34 Electronically signed by: Pedro Saini M.D. 04/28/17 15:26 HISTORY AND PHYSICAL Observed: 04/27/2017 Status: F Source: [facility] 10:45 PM [facility] HISTORY AND PHYSICAL EXAMINATION NAME NUMBER SEX AGE ADMIT DISC TYPE MED.RECORD# JULIANNE DEMETRA [id number] F 71 04/26/17 O/P [id number] ROOM:303MO DATE OF :1945 PHYSICIAN NO.:[id number] PHYSICIAN NAME:Pedro Saini M.D. PHYSICIAN: CHIEF COMPLAINT: Chest pain. HISTORY OF PRESENT ILLNESS: The patient is a pleasant 71-year-old lady with a past medical history significant for hypertension and sleep apnea who was in her usual state of health until yesterday, when she was working cleaning her yard from the tree branches using a chainsaw. She suddenly started having chest pain that was left-sided and sharp. Initially it felt like a catch and then became very sharp and disabling. The patient was unable to move. She did not have any shortness of breath. No nausea or vomiting. No diaphoresis. No palpitations. She was brought to the Emergency Room for evaluation, and a CT scan of the chest was done and showed no PE and no aneurysm. The patient was admitted for further evaluation and treatment. During my evaluation, the patient did not have any discomfort. About two years ago, the patient had a syncopal episode, and work-up at that time was negative. A few months ago, she had right eye discomfort. A carotid Doppler ultrasound was checked, and it was negative. PAST MEDICAL HISTORY: (1) Hypertension. (2) Hypothyroidism. (3) Diverticulosis. (4) Benign colonic polyps. (5) Degenerative joint disease. (6) Obesity with a body mass index of 37.36 kg/m2. (7) Obstructive sleep apnea on CPAP. PAST SURGICAL HISTORY: None. MEDICATIONS: (1) Multivitamin daily. (2) Hydrochlorothiazide 25 mg daily. (3) Levothyroxine 100 mcg daily. (4) Fish oil 1000 mg daily. ALLERGIES: No known drug allergies. FAMILY HISTORY: Positive for mother having breast cancer in her 50s, and she from colon cancer at age 76. Brother from lymphoma. Sister is living with CLL. There is also a family history of hypertension and diabetes. The patient also has a daughter in her mid-thirties with thyroid cancer. SOCIAL HISTORY: The patient is . She has three children. She does not smoke and does not drink any alcohol. REVIEW OF SYSTEMS: The patient denies any dizziness, lightheadedness, or headaches. She denies any weight changes. She denies any or GI symptoms. She denies any lower extremity edema. No previous heart disease other than hypertension. She had the chest pain as described above. The rest of the review of systems were discussed with the patient and were negative. PHYSICAL EXAMINATION GENERAL APPEARANCE: The patient was lying down in bed comfortably, in no acute distress, well-developed and well-nourished. VITAL SIGNS: Blood pressure is 162/84, heart rate 72, respiratory rate 18, temperature 98.1, and oxygen saturation 94% on room air. SKIN: Warm and dry. HEENT: Unremarkable. NECK: Supple. No nodes. No masses. No JVD. No carotid bruit. No thyroid enlargement. LUNGS: Symmetrical with equal lung expansion, clear to auscultation. Respiratory effort is normal. There was no reproducible chest wall tenderness, but the patient felt the chest discomfort when she sat up from a laying position. HEART: Regular rate and rhythm. No murmurs and no gallops. ABDOMEN: Soft and nontender. No masses. No hepatosplenomegaly. No hernias. EXTREMITIES: No edema, cyanosis or clubbing. Pulses are palpable at the peripheral arteries. NEUROLOGIC: The patient was alert and oriented x3. DIAGNOSTIC DATA: WBC is 7.8, hemoglobin 13.3, hematocrit 38.6, and platelet count 185,000. Magnesium is 2.2. TSH is 1.29. Troponin is 0.01. Sodium is 139, potassium 4, BUN 18, creatinine 0.8, and glucose 122. Total cholesterol is 132, HDL 44, LDL 64, and triglycerides 119. Urinalysis is positive for leukocytes, 16-25 WBCs, and +[address] scan of the chest done in the Emergency Room showed no PE and no aortic aneurysm, but it showed a small hiatal hernia and numerous fluid attenuation lesions throughout the liver, incompletely characterized on this examination. The largest measures 5.5 x 4.3 x 5.6 cm. Also, it showed diffuse heterogeneous mottled attenuation of the marrow. No fracture or dislocation. This may represent marrow or infiltrative abnormality or metastatic disease. There was also evidence of a remote healed anterior left eighth rib fracture at the costochondral junction. IMPRESSIONS/PLAN: 1. Chest pain. The patient has risk factors of obesity, sleep apnea and hypertension. She was admitted to a medical-surgical floor under telemetry monitoring. Myocardial infarction was ruled out with serial enzymes and serial EKGs. The patient is scheduled to have further cardiac evaluation, including stress testing and an echocardiogram. 2. Hypertension with elevated blood pressure. The patient tells me that her blood pressure is usually very well controlled. She was started on Lopressor and lisinopril on admission. I will increase the Lopressor to 25 mg b.i.d., and we will increase the lisinopril to 5 mg b.i.d. and monitor her blood pressures. 3. Sequential compression devices and Lovenox for deep venous thrombosis prophylaxis. 4. Abnormal CT scan, especially of the vertebral bodies and the liver. Further work-up has been recommended. I discussed with the patient this finding, and she will need to follow up with a door slinger/oncologist as an outpatient for further advice, especially to rule out the possibility of malignancy. 5. Obesity with a body mass index of 37.36 kg/m2, a complicating factor. 6. Obstructive sleep apnea. The patient is compliant with CPAP treatment. We will continue the same treatment. The above was discussed with the patient and her in detail, and all questions were answered. They expressed understanding of the plan of care. D: Oriana Saini MD TD: 12:16 JOB #: [id number] Transcribed by: karen April 27, 2017 12:43 PM Electronically signed by: Pedro Saini M.D. 04/27/17 22:45 Update to H&P: [ ] No changes: I have examined the patient and reviewed the H&P and there are no changes. [ ] As previously dictated with the following changes: PHYSICIAN SIGNATURE: TIME: DATE: URINALYSIS Collected: 04/27/2017 Status: F Source: [facility] 7:15 AM [facility] REPOSITORY TYPE CODE TESTS RESULT OUT OF REFERENCE UNITS RANGE LAB URINALYSIS (LOINC) URINALYSIS Result Comment: URINALYSIS LAB Specimen Type(LOINC) Specimen Type UNSPECIFIED LAB Color(LOINC) NORMAL: YELLOW Color YELLOW LAB Clarity(LOINC) NORMAL: CLEAR Clarity clear LAB ph(LOINC) NORMAL: 5.0-8.0 ph 5 LAB Protein(LOINC) NORMAL: NEGATIVE Protein NEG LAB Glucose(LOINC) NORMAL: NORMAL Glucose NORM LAB Ketone(LOINC) NORMAL: NEGATIVE Ketone NEG LAB Bilirubin(LOINC) NORMAL: NEGATIVE NEG Bilirubin LAB Blood(LOINC) NORMAL: NEGATIVE Blood 25 Abnormal LAB Urobilinog(LOINC NORMAL: ) NORMAL NORM Urobilinog LAB Sp NORMAL: [place](LOINC) 1.010-1.030 Sp 1.015 [place] LAB Nitrite(LOINC) NORMAL: NEGATIVE Nitrite NEG LAB Leukocytes(LOINC NORMAL: ) NEGATIVE 500 Abnormal Leukocytes LAB Microscopic(LOIN C) SEE Microscopic BELOW Result Comment: MICROSCOPIC LAB Wbc(LOINC) 0-5/hpf Wbc 16-25 LAB Rbc(LOINC) 0-3/hpf Rbc 0-5 LAB Casts(LOINC) Casts NONE LAB Crystals(LOINC) Crystals NONE LAB Amorphous(LOINC) Amorphous NONE LAB Bacteria(LOINC) Bacteria 1+ LAB Epi Cells(LOINC) Epi Cells OCC LAB Mucous(LOINC) Mucous NONE LAB Yeast(LOINC) Yeast NONE Performed By: #### [id number] #### [facility],[address] [place] [address] CBC Collected: 04/27/2017 Status: F Source: [facility] 7:00 AM [facility] REPOSITORY TYPE CODE TESTS RESULT OUT OF RANGE REFERENCE UNITS LAB CBC(LOINC) CBC Result Comment: CBC-COMPLETE BLOOD COUNT LAB WBC(LOINC) 4.5 - 10.8 x 10EE3/UL WBC 7.8 LAB RBC(LOINC) 4.10 - x 10EE6/UL 5.30 RBC 4.16 LAB HEMOGLOBIN(LOINC) 12.0 - g/dl 16.0 HEMOGLOBIN 13.3 LAB HEMATOCRIT(LOINC) 34.0 - % 46.0 HEMATOCRIT 38.6 LAB MCV(LOINC) 80 - 99 fl MCV 93 LAB MCH(LOINC) 27 - 33 pg MCH 32 LAB MCHC(LOINC) 32 - 36 X10 3 MCHC 34 LAB RDW/CV(LOINC) 12.0 - % 15.6 RDW/CV 12.6 LAB PLATELET(LOINC) 150 - 450 x10EE3/UL PLATELET 185 LAB MPV(LOINC) 6.6 - 10.5 fl MPV 9.8 Result Comment: AUTOMATED DIFFERENTIAL LAB NEUT %(LOINC) 46.0 - 76.0 % NEUT % 58.3 LAB LYMPH %(LOINC) 20.0 - 45.0 % LYMPH % 31.0 LAB MONOS %(LOINC) 0.0 - 10.0 % MONOS % 8.3 LAB EO %(LOINC) 0.0 - 7.0 % EO % 1.8 LAB BASO %(LOINC) 0.0 - 2.0 % BASO % 0.6 LAB Lymph #(LOINC) 0.80 - 2.80 x10EE3/U L Lymph # 2.40 LAB Neut #(LOINC) 1.50 - 7.10 x10EE3/U L Neut # 4.60 LAB [place] #(LOINC) 0.20 - 1.00 x10EE3/U L [place] # 0.70 LAB EO #(LOINC) 0.00 - 0.50 x10EE3/U L EO # 0.10 LAB Baso #(LOINC) 0.00 - 0.10 x10EE3/U L Baso # 0.00 LAB MANUAL DIFF(LOINC) MANUAL DIFF N/A LAB MORPHOLOGY(LOINC ) MORPHOLOGY N/A Result Comment: {CD] Performed By: #### [id number] #### [place] [id number] TROPONIN Collected: 04/27/2017 Status: F Source: [facility] 7:00 [facility] REPOSITORY TYPE CODE TESTS RESULT OUT OF REFERENCE UNITS RANGE LAB TROPONIN 0.00 - 0.05 ng/ml I(LOINC) TROPONIN I <0.01 Result Comment: Elevated troponin (above the 99th percentile) usually indicates myocardial ischemia. Results must be interpreted within the clinical setting. 1.Non-ischemic pathology can also cause elevated troponin levels (e.g., acute pulmonary embolism, myocarditis, pericarditis, heart failure, intracranial injury, rhabdomyolisis, sepsis, shock and renal insufficiency). 2.Approximately 1% of healthy adults have elevated troponin levels. 3.Analytical false positive results rarely occur(due to multiple interferences such as heterophile antibodies). Performed By: #### [id number] #### [place] [id number] BMP WITH EGFR Collected: 04/27/2017 Status: F Source: [facility] 7:00 [facility] REPOSITORY TYPE CODE TESTS RESULT OUT OF RANGE REFERENCE UNITS LAB BMP with eGFR(LOINC) BMP with eGFR Result Comment: BASIC METABOLIC PANEL LAB SODIUM(LOINC) 136 - 145 mmol/l SODIUM 139 LAB POTASSIUM(LOINC) 3.5 - 5.1 mmol/L POTASSIUM 4.0 LAB CHLORIDE(LOINC) 98 - 107 mmol/L CHLORIDE 102 LAB CO2(LOINC) 21.0 - mmol/L 31.0 CO2 30.9 LAB GLUCOSE(LOINC) 74 - 106 mg/dl GLUCOSE High 122 LAB BUN(LOINC) 6 - 20 mg/dl BUN 18 LAB CREATININE(LOINC) 0.6 - 1.2 mg/dl CREATININE 0.8 LAB CALCIUM(LOINC) 8.6 - mg/dl 10.2 CALCIUM 9.0 LAB ANION GAP(LOINC) 10 - 20 mmol/L ANION GAP 10 LAB AGE(LOINC) years AGE 71 LAB eGFR(LOINC) 60 - 999 ML/MINUTE eGFR >60 LAB eGFR(AA)(LOINC) 60 - 999 ML/MINUTE eGFR(AA) >60 Result Comment: ACCORDING TO THE NATIONAL KIDNEY DISEASE EDUCATION PROGRAM(NKDE), A NORMAL eGFR IS A VALUE GREATER THAN OR EQUAL TO 60 ML/MIN/1.73 SQ METERS. CHRONIC KIDNEY DISEASE: <60mL/MIN/1.73 SQ METERS KIDNEY FAILURE: <15mL/MIN/1.73 SQ METERS THIS TEST SHOULD ONLY BE USED FOR PATIENTS 18 YEARS OF AGE AND OLDER. Performed By: #### [id number] #### [place] [id number] LIPID PROFILE Collected: 04/27/2017 Status: F Source: [facility] 7:00 AM [facility] REPOSITORY TYPE CODE TESTS RESULT OUT OF REFERENCE UNITS RANGE LAB LIPID PROFILE(LOIN C) LIPID PROFILE Result Comment: LIPID PROFILE LAB TRIGLYCERIDE(LOINC) 0 - 150 mg/dl TRIGLYCERIDE 119 LAB CHOLESTEROL(LOINC) 0 - 200 mg/dl CHOLESTEROL 132 LAB HDL(LOINC) 40 - 60 mg/dl HDL 44 LAB CHOL/HDL(LOINC) 0.0 - 5.0 CHOL/HDL 3.0 LAB LDL(LOINC) 0 - 129 mg/dl LDL 64 Performed By: #### [id number] #### [place] [id number] TROPONIN Collected: 04/27/2017 Status: F Source: [facility] 1:31 AM [facility] REPOSITORY TYPE CODE TESTS RESULT OUT OF REFERENCE UNITS RANGE LAB TROPONIN 0.00 - 0.05 ng/ml I(LOINC) TROPONIN I 0.01 Result Comment: Elevated troponin (above the 99th percentile) usually indicates myocardial ischemia. Results must be interpreted within the clinical setting. 1.Non-ischemic pathology can also cause elevated troponin levels (e.g., acute pulmonary embolism, myocarditis, pericarditis, heart failure, intracranial injury, rhabdomyolisis, sepsis, shock and renal insufficiency). 2.Approximately 1% of healthy adults have elevated troponin levels. 3.Analytical false positive results rarely occur(due to multiple interferences such as heterophile antibodies). Performed By: #### [id number] #### [place] [id number] MAGNESIUM Collected: 04/27/2017 Status: F Source: [facility] 1:31 AM [facility] TYPE CODE TESTS RESULT OUT OF REFERENCE UNITS RANGE LAB MAGNESIUM( 1.6 - 2.6 mg/dl LOINC) MAGNESIUM 2.2 Performed By: #### [id number] #### [place] [id number] TSH Collected: 04/27/2017 Status: F Source: [facility] 1:31 [facility] TYPE CODE TESTS RESULT OUT OF RANGE REFERENCE UNITS LAB TSH(LOINC) 0.34 - 5.60 uIU/ml TSH 1.29 Performed By: #### [id number] #### [place] [id number] CT CHEST (PE PROTOCOL) Observed: 04/26/2017 Status: F Source: [facility] 4:48 PM [place] [id number] Patient: DEMETRA WHITAKER I. Phone#: : 1945 Age: 71 Gender: F Pt. Type: ER Account: [id number] Location: 052 Ordering: SANDRA Green Date: 04/26/2017/16:26 Family Phys: RALEIGH BILLS Charge Code: 225118 Physician: [place] Order #: [id number] DLP Dose#: PROCEDURE: CT CHEST WITH CONTRAST FOR PE COMPARISON: None. INDICATIONS: Chest pain TECHNIQUE: After obtaining the patient's consent, CT images were obtained with non-ionic intravenous contrast material. Multi-planar images were created to optimize visualization of vascular anatomy with MPR/MIPS and 3D imaging. All CT scans at this facility use dose modulation, iterative reconstruction, and/or weight based dosing when appropriate to reduce radiation dose to as low as reasonably achievable. IV CONTRAST: Omnipaque 350,85ml TOTAL DOSE: 9.2 CTDIvol(mGy) FINDINGS: VASCULATURE: Normal. No visible pulmonary arterial thrombus or attenuation. AORTA: No aortic aneurysm. LUNGS: There is dependent changes. There is linear atelectasis or scarring. Atelectasis at the left hemidiaphragm. There is elevation of the right hemidiaphragm. REYNA: Normal. No mass or adenopathy. MEDIASTINUM: There are small reactive mediastinal nodes. CARDIAC: Mild cardiomegaly. PLEURA: Normal. No mass or effusion. CHEST WALL: Nonspecific lymph nodes in the left axilla, a national account representative node measures 0.8 cm. LIMITED ABDOMEN: There is a small hiatal hernia. Numerous fluid attenuation lesions throughout the liver, incompletely characterized on this exam. The largest measures 5.5 x 4.3 x 5.6 cm. Continued Report - Page 2 of 2 Patient: DEMETRA WHITAKER I. Phone#: : 1945 Age: 71 Gender: F Pt. Type: ER Account: [id number] Location: 052 Ordering: SANDRA CASEY Exam Date: 04/26/2017/16:26 Family Phys: RALEIGH BILLS Charge Code: 384081 Physician: [place] Order #: [id number] DLP Dose#: BONES: There is diffuse heterogeneous mottled attenuation of the marrow. No fracture or dislocation. There are degenerative changes of the spine. Evidence of remote healed anterior left eighth rib fracture at the costochondral junction. OTHER: Negative. CONCLUSION: 1. Mottled attenuation of the vertebral bodies. This may represent marrow or infiltrative abnormality, or metastatic disease. Recommend further workup. 2. Numerous cystic lesions throughout the liver, incompletely characterized on this exam. 3. No pulmonary embolism. 4. Atelectasis. Dictated by: Yulisa Mcdonald MD on 04/26/2017 at 17:11 Approved by: Yulisa Mcdonald MD on 04/26/2017 at 17:11 CBC Collected: 04/26/2017 Status: F Source: [facility] 3:12 PM [facility] REPOSITORY TYPE CODE TESTS RESULT OUT OF RANGE REFERENCE UNITS LAB CBC(LOINC) CBC Result Comment: CBC-COMPLETE BLOOD COUNT LAB WBC(LOINC) 4.5 - 10.8 x 10EE3/UL WBC 9.1 LAB RBC(LOINC) 4.10 - x 10EE6/UL 5.30 RBC 4.48 LAB HEMOGLOBIN(LOINC) 12.0 - g/dl 16.0 HEMOGLOBIN 14.4 LAB HEMATOCRIT(LOINC) 34.0 - % 46.0 HEMATOCRIT 41.6 LAB MCV(LOINC) 80 - 99 fl MCV 93 LAB MCH(LOINC) 27 - 33 pg MCH 32 LAB MCHC(LOINC) 32 - 36 X10 3 MCHC 35 LAB RDW/CV(LOINC) 12.0 - % 15.6 RDW/CV 12.4 LAB PLATELET(LOINC) 150 - 450 x10EE3/UL PLATELET 229 LAB MPV(LOINC) 6.6 - 10.5 fl MPV 10.2 Result Comment: AUTOMATED DIFFERENTIAL LAB NEUT %(LOINC) 46.0 - 76.0 % NEUT % 63.4 LAB LYMPH %(LOINC) 20.0 - 45.0 % LYMPH % 28.2 LAB MONOS %(LOINC) 0.0 - 10.0 % MONOS % 6.6 LAB EO %(LOINC) 0.0 - 7.0 % EO % 1.1 LAB BASO %(LOINC) 0.0 - 2.0 % BASO % 0.7 LAB Lymph #(LOINC) 0.80 - 2.80 x10EE3/U L Lymph # 2.60 LAB Neut #(LOINC) 1.50 - 7.10 x10EE3/U L Neut # 5.80 LAB [place] #(LOINC) 0.20 - 1.00 x10EE3/U L [place] # 0.60 LAB EO #(LOINC) 0.00 - 0.50 x10EE3/U L EO # 0.10 LAB Baso #(LOINC) 0.00 - 0.10 x10EE3/U L Baso # 0.10 LAB MANUAL DIFF(LOINC) MANUAL DIFF N/A LAB MORPHOLOGY(LOINC ) MORPHOLOGY N/A Result Comment: {CD] Performed By: #### [id number] #### [facility],[address] [place] [address] CMP WITH EGFR Collected: 04/26/2017 Status: F Source: [facility] 3:12 PM [facility] REPOSITORY TYPE CODE TESTS RESULT OUT OF RANGE REFERENCE UNITS LAB CMP with eGFR(LOINC) CMP with eGFR Result Comment: COMPREHENSIVE METABOLIC PANEL LAB SODIUM(LOINC) 136 - 145 mmol/l SODIUM 139 LAB POTASSIUM(LOINC) 3.5 - 5.1 mmol/L POTASSIUM 3.5 LAB CHLORIDE(LOINC) 98 - 107 mmol/L CHLORIDE 101 LAB CO2(LOINC) 21.0 - mmol/L 31.0 CO2 29.7 LAB GLUCOSE(LOINC) 74 - 106 mg/dl GLUCOSE High 180 LAB BUN(LOINC) 6 - 20 mg/dl BUN 18 LAB CREATININE(LOINC) 0.6 - 1.2 mg/dl CREATININE 0.9 LAB AST/SGOT(LOINC) 13 - 39 U/L AST/SGOT 20 LAB ALK PHOS(LOINC) 38 - 126 U/L ALK PHOS 45 LAB CALCIUM(LOINC) 8.6 - mg/dl 10.2 CALCIUM 9.5 LAB TOTAL 6.4 - 8.3 g/dl PROTEIN(LOINC) TOTAL PROTEIN 7.5 LAB ALBUMIN(LOINC) 3.4 - 4.8 g/dL ALBUMIN 4.4 LAB GLOBULIN(LOINC) 1.5 - 3.8 G/DL GLOBULIN 3.1 LAB A/G RATIO(LOINC) 0.9 - 1.6 A/G RATIO 1.4 LAB TOTAL BILI(LOINC) 0.0 - 1.5 mg/dl TOTAL BILI 0.3 LAB B/C RATIO(LOINC) 0 - 30 ratio B/C RATIO 20 LAB ALT/SGPT(LOINC) 8 - 35 U/L ALT/SGPT 30 LAB ANION GAP(LOINC) 10 - 20 mmol/L ANION GAP 12 LAB AGE(LOINC) years AGE 71 LAB eGFR(LOINC) 60 - 999 ML/MINUTE eGFR >60 LAB eGFR(AA)(LOINC) 60 - 999 ML/MINUTE eGFR(AA) >60 Result Comment: ACCORDING TO THE NATIONAL KIDNEY DISEASE EDUCATION PROGRAM(NKDE), A NORMAL eGFR IS A VALUE GREATER THAN OR EQUAL TO 60 ML/MIN/1.73 SQ METERS. CHRONIC KIDNEY DISEASE: <60mL/MIN/1.73 SQ METERS KIDNEY FAILURE: <15mL/MIN/1.73 SQ METERS THIS TEST SHOULD ONLY BE USED FOR PATIENTS 18 YEARS OF AGE AND OLDER. Performed By: #### [id number] #### [place] [address] TROPONIN Collected: 04/26/2017 Status: F Source: [facility] 3:12 PM [facility] REPOSITORY TYPE CODE TESTS RESULT OUT OF REFERENCE UNITS RANGE LAB TROPONIN 0.00 - 0.05 ng/ml I(LOINC) TROPONIN I 0.01 Result Comment: Elevated troponin (above the 99th percentile) usually indicates myocardial ischemia. Results must be interpreted within the clinical setting. 1.Non-ischemic pathology can also cause elevated troponin levels (e.g., acute pulmonary embolism, myocarditis, pericarditis, heart failure, intracranial injury, rhabdomyolisis, sepsis, shock and renal insufficiency). 2.Approximately 1% of healthy adults have elevated troponin levels. 3.Analytical false positive results rarely occur(due to multiple interferences such as heterophile antibodies). Performed By: #### [id number] #### [place] [id number] CT-CHEST PE W CON Observed: 04/26/2017 Status: F Source: [facility] 12:00 AM [facility] REPOSITORY Images were obtained outside of [facility] [id number] ALLERGIES ALLERGIES DATE TYPE / CODE NAME / CODE REACTION SEVERITY SOURCE NG/[id number](SNOMED NO KNOWN [facility]) ALLERGIES Health System Repository Drug NO KNOWN [place] Class/406270339(SNO ALLERGIES [facility] Main MED CT) [place] Repository Miscellaneous No Known Moderate David Fuentes Allergy/[id number](S Allergies (Severity [facility] NOM[facility]) Modifier) Hospital (Qualifier Repository Value) ENCOUNTERS ENCOUNTERS ADMIT/DISCHARGE ACCOUNT NUMBER ADMITTING ENCOUNTER LOCATION SOURCE CLASS 03/07/2018 [id number] Ambulatory [facility] ding:[facility] Repository 01/15/2018/01/20/20 [id number] Ambulatory ABuilding:AL Jeremy [facility] Repository 01/15/2018 [id number] Ambulatory ABuilding:WD [facility] Repository 01/02/2018/02/09/20 [id number] SARMAD REDDY Ambulatory David Fuentes 18 [facility] Repository 12/20/2017/12/21/19 [id number] Ambulatory ABuilding:SD Jeremy 18 URoom: Health 0102Bed: A [facility] Repository 11/18/2017/11/19/19 [id number] Ambulatory ABuilding:SD Jeremy 18 URoom: Health 0109Bed: A [facility] Repository 11/09/2017/01/03/20 [id number] MAUREEN NARANJO, Inpatient LBuilding:LT Jeremy 18 RYAN B Encounter CHRoom: Health 4570Bed: A [facility] Repository 11/09/2017 [id number] Ambulatory ABuilding:LT [facility] Repository 10/15/2017/11/10/19 [id number] DAMASO ROSALES Inpatient [address] Repository 10/15/2017/11/10/19 [id number] DAMASO ROSALES Inpatient [facility] 18 F Encounter [facility] MEDICAL Repository CENTERBuildi nARoom: 5204Bed: 08/07/2017/08/09/19 [id number] Ambulatory [address] Main [place] Repository 08/07/2017/08/08/19 [id number] Ambulatory [address] Main [place] Repository 08/06/2017/08/07/19 [id number] Ambulatory [address] Main [place] Repository 08/06/2017/08/07/19 [id number] Ambulatory [address] Main [place] Repository 05/09/2017/05/11/19 [id number] Ambulatory [address] Main [place] Repository 05/08/2017/05/09/19 [id number] Ambulatory [address] Main [place] Repository 05/02/2017/05/04/19 [id number] Ambulatory [address] Repository 05/02/2017/05/04/19 [id number] Ambulatory [address] Repository 04/26/2017/04/30/19 [id number] BIPRAVIN, [facility] Buildin David Fuentes 18 ORIANA NARANJO Room: [address] [place] [address] Repository PAYERS PAYERS ENCOUNTER GUARANTOR PAYER SUBSCRIBER SOURCE 03/07/2018 DEMETRA I Primary Insurance:ESTEVAN DEMETRA I [place] [id number] PRIMETIME HEALTH PLAN SOMMERSDOB: [address] Number: [id number] [facility] [address]Xca: [id number] Repository Date:[id number] B[address] () [address] [place] [phone]: 03/07/2018 Secondary NOT GIVENUNK [place] Insurance:SELF PAY [facility] Number: Effective Repository Date:2018-03-06 01/15/2018 DEMETRA I Primary DEMETRA I [facility] SOMMERSDOB: Insurance:PRIME TIME SOMMERSDOB: [facility] HEALTH ([place])Policy [id number] Repository [facility] Number: [address], [id number] [address]Mst: Date:2018-01-15 - [place] [address]Bhx: 2100-12-31plan () Name:NPO BOX (HP)Tel: [phone]) 6597LHIJPAbhijitCHAMA, [place] 000-0000 () [phone]: 01/15/2018 DEMETRA I Primary DEMETRA I [facility] SOMMERSDOB: Insurance:PRIME TIME SOMMERSDOB: [facility] [id number] HEALTH (BOOTH)Policy [id number] Repository [facility] Number: [address], [id number] [address]Pyq: Date:2018-01-02 - [place] [address]Nti: 2100-12-31plan () Name:NPO BOX ()Tel: [phone] [phone], [place] 0000000 (WP) [phone]: 01/02/2018 DEMETRA Primary DEMETRA Fuentes SOMMERSDOB: Insurance:PRIMETIME SOMMERSDOB: [facility] MEDICARE [id number] [address] REC[address] Repository [address] [place] [address], Number: [address] [place] [address]Iad: [id number] [place] [id number] Date:Plan Name:P1 () 12/20/2017 UNIT LTACHDOB: Primary Insurance:SELF DEMETRA [employer] Moodler[employer]oms PAY [employer] SOMMERSDOB: [facility] 6TH Number: Effective [id number] Repository [place], [place] Date:2017-12-[address] [facility] [address]Vyq: [phone] [phone] Name:[address] [place], [place] [phone] () [place] [address]Yec: () (WP) 11/18/2017 UNIT [id number] Primary Insurance:SELF [facility] [address] PAY INSCOPolicy SOMMERSDOB: [place], [place] Number: Effective [id number] Repository [address]Tdr: 330) Date:2017-11-[address] [facility] [phone] () [id number] Name:[address] [place] [address]Xkm: () (WP) 11/09/2017 DEMETRA I Primary [facility] SOMMERSDOB: Insurance:PRIME TIME SOMMERSDOB: [facility]Policy [id number] Repository [facility] Number: [address] [facility] [address] [place] [address], [id number] [address] [place] [address]Ucr: Date:2016-09-01 [place] [address]Now: 2024-12-31Plan (HP)Tel: (000) Name:NPO BOX (HP) (WP) [address], [place] 000-[address] (WP) [phone]: 11/09/2017 Secondary [facility] Insurance:MEDICARE SOMMERSDOB: [facility] PART APolicy Number: [id number] Repository [id number] [address] [place] [address] ROAD Date:2016-09-01 - [address] [place] [address] [id number] [place] [address]Rnd: Name:MMail Code 600[address] Box (HP)Tel: [phone]) [phone], [place] 000[address] (WP) [phone]: 11/09/2017 [facility] Primary Insurance:SELF [facility] CAREDOB: PAYPolicy Number: SOMMERSDOB: [facility] [id number] [facility] [id number] Repository [address] Date:2017-11-08 [place], [place] [id number] Name:[address] [place] [address], [address]Hbd: (330) [place] [address]Icz: [phone] (HP) (HP) (WP) 10/15/2017 DEMETRA JULIANNE Primary DEMETRA JULIANNE [facility] IDOB: Insurance:PRIMETIME IDOB: Health System HEALTH PLAN [facility] [id number] [facility] [address] Number: [address], [id number] [place] [address]Wie: Date: (HP) 04/26/2017 DEMETRA Primary DEMETRA Fuentes SOMMERSDOB: Insurance:PRIMETIME SOMMERSDOB: [facility] O OUTPATIENTPolicy [id number] [address] Number: [address] Repository [address] [place] [address], [id number] [address] [place] [address]Fgh: Date:Plan Name:[facility] [phone] ()
== END ==
PROVIDERS: Family Provider Family Medicine; PCP Family Medicine; Referring Provider Surgery Vascular Surgery; Visit Provider Surgery Vascular Surgery
DX: M79.89 Other specified soft tissue disorders (principal); M79.609 Pain in unspecified limb
CPT/HCPCS: 93971